=== PATIENT | female | born 1955 | race Caucasian/White ===

== ENCOUNTER 2017-11-06 08:03 | Outpatient (CLI) | payer MEDICAID ==
[~2017-11-06] VITALS: Ht 160 cm; Wt 64.9 kg
[~2017-11-06 08:03] MED LIST: AC325T PO; ASP325T PO; ASPI-892; BETH50TA9 PO; CIPR500T78 PO; CLOP75TA PO; CTRZ10T PO; DULO60CA6; GBPN300C; LEVO750T6 PO; LORA1TAB; NORT50CA PO; OXC5T; RT-COMBINH; VIT1TABL93 PO
[2017-11-06 08:13] VITALS: BP 136/81
[2017-11-06 08:49] LABS: BASOPHILS % (AUTO) 0 % (0-10); EOSINOPHILS # (AUTO) 0.1 10^3/uL (0.0-0.3); EOSINOPHILS % (AUTO) 1 % (0-10); HEMATOCRIT 43 % (35-52); HEMOGLOBIN 14.9 G/DL (11.5-16.0); LYMPHOCYTES # (AUTO) 1.9 X 10^3 (1.0-4.0); LYMPHOCYTES % (AUTO) 20 % (12-44); MEAN CORPUSCULAR HEMOGLOBIN 32 PG (25-34); MEAN CORPUSCULAR HGB CONC 35 G/DL (32-36); MEAN CORPUSCULAR VOLUME 93 FL (80-99); MEAN PLATELET VOLUME 9.8 FL (7.4-10.4); MONOCYTES # (AUTO) 0.7 X 10^3 (0.0-1.0); MONOCYTES % (AUTO) 7 % (0-12); NEUTROPHILS # (AUTO) 7.1 X 10^3 (1.8-7.8); NEUTROPHILS % (AUTO) 72 % (42-75); PLATELET COUNT 239 10^3/uL (130-400); RED BLOOD COUNT 4.67 10^6/uL (4.35-5.85); WHITE BLOOD COUNT 9.8 10^3/uL (4.3-11.0)
--- NOTE | 2017-11-06 09:09 | Diagnostic Imaging Report ---
INDICATION: Preop nasal surgery PA and lateral chest Heart size and pulmonary vascularity are normal. Lungs are clear. There are no effusions or pneumothoraces. There is CHEMICAL OPERATIONS AND TRAINING shunt running down the left side of the chest. IMPRESSION: No acute abnormalities in the chest Dictated by: Dictated on workstation # [id number]
[2017-11-06 09:11] LABS: BUN/CREATININE RATIO 15; CALCIUM 9.4 MG/DL (8.5-10.1); CARBON DIOXIDE 24 MMOL/L (21-32); CHLORIDE 111 MMOL/L (98-107); CREATININE SERUM 0.72 MG/DL (0.60-1.30); GFR ESTIMATED > 60; GLUCOSE 95 MG/DL (70-105); POTASSIUM 4.2 MMOL/L (3.6-5.0); SODIUM 143 MMOL/L (135-145)
[2017-11-06] MEDS ORDERED: CETI10TA17 PO (09:27)
[2017-11-06] MEDS ORDERED: LORA1TAB PO (09:27)
[2017-11-06] MEDS ORDERED: ACET-93 PO (09:27)
[2017-11-06] MEDS ORDERED: IPRA4AER IH (09:27)
[2017-11-06] MEDS ORDERED: POLY119P5 PO (09:31)
[2017-11-06] MEDS ORDERED: BUTA1CAP17 PO (09:31)
[2017-11-06] MEDS ORDERED: [UNRECOGNIZED DRUG - CODE] IJ (09:31)
[2017-11-06] MEDS ORDERED: DULO60CA6 PO (09:31)
[2017-11-15] MEDS ORDERED: AZIT250T PO (07:18)
[2017-11-15] MEDS ORDERED: ACHD5005 PO (10:32)
[2017-11-15] MEDS ORDERED: CEPH-507 PO (10:32)
[2017-11-15] MEDS ORDERED: MUPI22OI2 TP (10:33)
== END 2017-11-06 09:00 | disposition home or self-care (01) ==
LOC: PREOP 08:03
PROVIDERS: ATTEND Otolaryngology Otolaryngology/Facial Plastic Surgery
DX: Z01.810 Encounter for preprocedural cardiovascular examination (principal); Z01.811 Encounter for preprocedural respiratory examination; Z01.812 Encounter for preprocedural laboratory examination; Z11.2 Encounter for screening for other bacterial diseases; L98.9 Disorder of the skin and subcutaneous tissue, unspecified
CPT/HCPCS: 36415; 71046; 80048; 85025; 87081; 93005

== ENCOUNTER 2018-09-24 05:38 | Outpatient (CLI) | payer MEDICAID ==
[~2018-09-24] VITALS: Ht 160 cm; Wt 64.9 kg
[~2018-09-24 05:38] MED LIST changes: +ACET-93 PO; +ACHD5005 PO; +AZIT250T PO; +BUTA1CAP17 PO; +CEPH-507 PO; +CETI10TA17 PO; +DULO60CA6 PO; +IPRA4AER IH; +LORA1TAB PO; +MUPI22OI2 TP; +POLY119P5 PO; +[UNRECOGNIZED DRUG - CODE] IJ
[2018-09-24] MEDS ORDERED: RANI150T46 PO (13:17)
[2018-09-24] MEDS ORDERED: NABU500T PO (13:17)
== END 2018-09-24 13:23 | disposition home or self-care (01) ==
LOC: PREOP 05:38
PROVIDERS: ATTEND Specialist
DX: Z01.818 Encounter for other preprocedural examination (principal)

== ENCOUNTER 2018-09-26 06:56 | Day surgery (SDC) | payer MEDICAID ==
[~2018-09-26] VITALS: Ht 160 cm; Wt 64.9 kg
[~2018-09-26 06:56] MED LIST changes: +NABU500T PO; +RANI150T46 PO
[2018-09-26 07:00] VITALS: BP 123/79
[2018-09-26] MEDS ORDERED: MOXIFLOXACIN OPHTH SOLN 5 MG/ML 0.3 ML SYRINGE OP ONE (07:00)
[2018-09-26] MEDS ORDERED: TIMOLOL MALEATE 0.5% 5 ML (TIMOPTIC) BTL OU PRN (07:00)
[2018-09-26] MEDS ORDERED: LIDOCAINE PF 1% 2 ML AMP IR PRN (07:00)
[2018-09-26] MEDS ORDERED: POVIDONE (BETADINE) OPHTH SOLN 5% 30 ML OP ONE (07:00)
[2018-09-26] MEDS: TETRACAINE 0.5% OPHTH SOLN 4 ML BTL (SINGLE DOSE ONLY) OU PRN ×4 (07:16→07:35)
[2018-09-26] MEDS: CYCLOPENTOLATE 1% (CYCLOGYL) 2 ML DROPS OP SCH ×3 (07:25→07:35)
[2018-09-26] MEDS: PHENYLEPHRINE 10% OPHTH (NEO-SYN) 5 ML BTL OU SCH ×3 (07:25→07:35)
[2018-09-26] MEDS ORDERED: MIDAZOLAM 2 MG/2 ML (VERSED) VIAL ONE (07:50)
--- NOTE | 2018-09-26 08:06 | Ophthalmologist Pre-Op Note ---
Pre-Operative Progress Note H&P Reviewed The H&P was reviewed, patient examined and no changes noted. Date H&P Reviewed: Sep 26, 2018 Time H&P Reviewed: 08:06 Pre-Op Dx Cataract, Left Eye CE DIAZ MD Sep 26, 2018 08:06
--- NOTE | 2018-09-26 08:31 | Ophthalmology Operative Report ---
Cataract removal/placement IOL PREOPERATIVE DIAGNOSIS: Cataract Left Eye POSTOPERATIVE DIAGNOSIS: Cataract Left Eye PROCEDURE: Cataract removal and placement of posterior chamber implant, left eye SURGEON: Garcia Diaz ANESTHESIA: Topical with sedation COMPLICATIONS: None ESTIMATED BLOOD LOSS: Minimal DESCRIPTION OF PROCEDURE: After proper informed consent was obtained, the patient, a 63 female, was taken to the Operating Room and the left eye was anesthetized with tetracaine. The left eye was then prepped and draped in the usual manner. A wire lid speculum was placed. A paracentesis was made at the left hand position. Preservative free lidocaine was injected into the anterior chamber followed by viscoelastic. A clear corneal incision was made in the temporal position. A capsulorrhexis was preformed and the central nuclear and cortical material were removed. The posterior capsule was polished and an Fer 22.5 AU00T0 was placed into the capsular bag. The residual viscoelastic was aspirated and balanced saline solution was injected into the anterior chamber. Moxifloxacin was injected into the anterior chamber. The wound was checked and found to be water tight. The patient tolerated the procedure well without complications. GARCIA DIAZ MD Sep 26, 2018 08:31
[2018-09-26 08:39] VITALS: BP 154/78
--- NOTE | 2018-09-26 12:00 | Anesthesia-General Post-Op ---
MAC Patient Condition Mental Status/LOC: Same as Preop Cardiovascular: Satisfactory Nausea/Vomiting: Absent Respiratory: Satisfactory Pain: Controlled Complications: Absent Post Op Complications Complications None Follow Up Care/Instructions Patient Instructions None needed. Anesthesiology Discharge Order Discharge Order Patient is doing well, no complaints, stable vital signs, no apparent adverse anesthesia problems. No complications reported per nursing. AVIS CID CRNA Sep 26, 2018 12:00
== END 2018-09-26 08:39 | disposition home or self-care (01) ==
LOC: SDC 06:56
PROVIDERS: ATTEND Specialist
DX: H25.12 Age-related nuclear cataract, left eye (principal); J45.909 Unspecified asthma, uncomplicated; K21.9 Gastro-esophageal reflux disease without esophagitis; Z86.79 Personal history of other diseases of the circulatory system; Z87.891 Personal history of nicotine dependence; Z79.899 Other long term (current) drug therapy

== ENCOUNTER 2018-11-05 05:48 | Outpatient (CLI) | payer MEDICAID | END 2018-11-05 16:20 | disposition home or self-care (01) | LOC: PREOP 05:48 | PROVIDERS: ATTEND Specialist | DX: Z01.818 Encounter for other preprocedural examination (principal) ==

== ENCOUNTER 2018-11-07 07:26 | Day surgery (SDC) | payer MEDICAID ==
[~2018-11-07] VITALS: Ht 160 cm; Wt 64.9 kg
[2018-11-07] MEDS: TETRACAINE 0.5% OPHTH SOLN 4 ML BTL (SINGLE DOSE ONLY) OU PRN ×4 (07:39→07:59)
[2018-11-07] MEDS ORDERED: LIDOCAINE PF 1% 2 ML AMP IR PRN (07:45)
[2018-11-07] MEDS ORDERED: TIMOLOL MALEATE 0.5% 5 ML (TIMOPTIC) BTL OU PRN (07:45)
[2018-11-07] MEDS ORDERED: POVIDONE (BETADINE) OPHTH SOLN 5% 30 ML OP ONE (07:45)
[2018-11-07] MEDS ORDERED: MOXIFLOXACIN OPHTH SOLN 5 MG/ML 0.3 ML SYRINGE OP ONE (07:45)
--- NOTE | 2018-11-07 07:45 | Ophthalmologist Pre-Op Note ---
Pre-Operative Progress Note H&P Reviewed The H&P was reviewed, patient examined and no changes noted. Date H&P Reviewed: Nov 07, 2018 Time H&P Reviewed: 07:45 Pre-Op Dx Cataract, Right Eye CE DIAZ MD Nov 07, 2018 07:45
[2018-11-07 07:48] VITALS: BP 136/76
[2018-11-07] MEDS: PHENYLEPHRINE 10% OPHTH (NEO-SYN) 5 ML BTL OU SCH ×3 (07:48→07:59)
[2018-11-07] MEDS: CYCLOPENTOLATE 1% (CYCLOGYL) 2 ML DROPS OP SCH ×3 (07:48→07:59)
[2018-11-07] MEDS ORDERED: MIDAZOLAM 2 MG/2 ML (VERSED) VIAL ONE (08:28)
--- NOTE | 2018-11-07 08:51 | Ophthalmology Operative Report ---
Cataract removal/placement IOL PREOPERATIVE DIAGNOSIS: Cataract Right Eye POSTOPERATIVE DIAGNOSIS: Cataract Right Eye PROCEDURE: Cataract removal and placement of posterior chamber implant, right eye SURGEON: Garcia Diaz ANESTHESIA: Topical with sedation COMPLICATIONS: None ESTIMATED BLOOD LOSS: Minimal DESCRIPTION OF PROCEDURE: After proper informed consent was obtained, the patient, a 63 female, was taken to the Operating Room and the right eye was anesthetized with tetracaine. The right eye was then prepped and draped in the usual manner. A wire lid speculum was placed. A paracentesis was made at the left hand position. Preservative free lidocaine was injected into the anterior chamber followed by viscoelastic. A clear corneal incision was made in the temporal position. A capsulorrhexis was preformed and the central nuclear and cortical material were removed. The posterior capsule was polished and Fer 23.0 AU00T0 IOL was placed into the capsular bag. The residual viscoelastic was aspirated and balanced saline solution was injected into the anterior chamber. Moxifloxacin was injected into the anterior chamber. The wound was checked and found to be water tight. The patient tolerated the procedure well without complications. GARCIA DIAZ MD Nov 07, 2018 08:51
[2018-11-07 09:00] VITALS: BP 114/73
--- NOTE | 2018-11-07 09:56 | Anesthesia-General Post-Op ---
MAC Patient Condition Mental Status/LOC: Same as Preop Cardiovascular: Satisfactory Nausea/Vomiting: Absent Respiratory: Satisfactory Pain: Controlled Complications: Absent Post Op Complications Complications None Follow Up Care/Instructions Patient Instructions None needed. Anesthesiology Discharge Order Discharge Order Patient is doing well, no complaints, stable vital signs, no apparent adverse anesthesia problems. No complications reported per nursing. ABISAI ORTIZ CRNA Nov 07, 2018 09:56
--- OUTSIDE RECORDS SUMMARY | 2018-11-07 12:39 | XMS REPORT | Clinical Summary ---
Author Author [facility] Organization [facility] Address Unknown Phone Unavailable Care Team Providers Care Farmworker Name Role Phone Taye Castorena MD Unavailable Jennifer Acosta MD Unavailable Josefina Grove MD Unavailable Rossana Magana RN Unavailable Unavailable Saima Hudson RN Unavailable Unavailable May Mckee RN Unavailable Unavailable Mode Fernandez MD Unavailable Alondra Mitchell MD Unavailable Radha Newman RN Unavailable Unavailable Leslie Dorado APRN-MATCHBOOK MAKER Unavailable Heather Bauer Unavailable Unavailable Radha Torres RN Unavailable Unavailable Jeff Platt MD Unavailable Lisa Gibson RN Unavailable Unavailable Fidel Lugo RN Unavailable Unavailable Jerson Leslie PCP Source Comments Some departments are not documenting in the electronic medical record. If you d o not see the information that you expected, contact Release of Information in [facility] Information Management department at [phone] for further assistan ce in locating additional records.[facility] Allergies Comments Active Allergy Reactions Severity Noted Date Adhesive Tape (Rosins) RASH, ITCHING Medium 08/09/2011 Sulfamethoxazole-Trimetho DIARRHEA, Low 08/08/2014 prim NAUSEA AND VOMITING Latex RASH, Medium 05/17/2014 SHORTNESS OF BREATH Morphine SHORTNESS OF Medium 03/13/2010 BREATH, ITCHING Sulfa (Sulfonamide NAUSEA AND Low 10/23/2014 Antibiotics) VOMITING Medications End Date Status Medication Sig Dispensed Refills Start Date Active LORazepam (ATIVAN) 1 mg Take 1 mg by 0 tablet mouth twice daily as needed. Active cetirizine (ZYRTEC) 10 mg Take 10 mg by 0 tablet mouth daily. Active ipratropium/albuterol Inhale 2 0 (COMBIVENT) 103/18 Puffs by mcg/Actuation inhaler mouth as Needed. Active acetaminophen (TYLENOL) Take 500 mg 0 500 mg tablet by mouth every 6 hours as needed. Active triamcinolone acetonide Apply to 0 (KENALOG) 0.1 % topical affected area cream twice daily as needed. Active cholecalciferol(+) Take 2,000 0 (VITAMIN D-3) 2,000 unit Units by tablet mouth. Take 1 tablet weekly Active oxyCODONE-acetaminophen Take 1 Tab by 0 (PERCOCET; ENDOCET; mouth every 4 ROXICET) 5-325 mg tablet hours as needed for Pain Active polyethylene glycol 3350 Take 17 g by 0 (GLYCOLAX; MIRALAX) 17 mouth as gram/dose powder Needed. 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 Status post cerebral aneurysm repair 07/29/2013 S/P cerebral aneurysm repair 05/20/2012 Aneurysm, cerebral, nonruptured 04/06/2010 Asthma 04/06/2010 Anxiety 04/06/2010 Immunizations Name Dates Previously Given Next Due Pneumococcal Vaccine 07/23/2014 (23-Funmi Adult) Family History Medical History Relation Name Comments Other Father brain tumor Cancer Mother Relation Name Status Comments Father Mother Social History Date Tobacco Use Types Packs/Day Years Used Quit: 06/13/2013 Former Smoker Cigarettes 0.5 35 Smokeless Tobacco: Never Used Alcohol Use Drinks/Week oz/Week Comments No Sex Assigned at Date Recorded Not on file Industry Job Start Date Occupation Not on file Not on file Not on file Travel End Travel History Travel Start No recent travel history available. Last Filed Vital Signs Time Taken Vital Sign Reading 07/08/2015 12:34 PM [employer] ATT[employer] Blood Pressure 157/85 07/08/2015 12:34 PM [employer] ATTEND[employer] Pulse 67 12/03/2014 9:50 AM CDT Temperature 36.8 C (98.3 F) 09/01/2014 3:17 PM CDT Respiratory Rate 20 12/03/2014 9:50 AM CDT Oxygen Saturation 99% - Inhaled Oxygen - Concentration 07/08/2015 12:34 PM [employer] ATTENDANT Weight 61.2 kg (135 lb) 07/08/2015 12:34 PM [employer]UM ATTENDANT Height 158.8 cm (5' 2.5") 07/08/2015 12:34 PM [employer]UM ATTENDANT Body Mass Index 24.3 Plan of Treatment Health Maintenance Due Date Last Done Comments HEPATITIS C SCREENING 1956 PHYSICAL (COMPREHENSIVE) 1963 EXAM HIV SCREENING 1971 DTAP/TDAP VACCINES (1 - 1974 Tdap) CERVICAL CANCER SCREENING 1986 BREAST CANCER SCREENING 1996 COLORECTAL CANCER 2006 SCREENING SHINGLES RECOMBINANT 2006 VACCINE (1 of 2) INFLUENZA VACCINE 03/03/2019 Results Not on filefrom Last 3 Months Insurance Type Payer Benefit Subscriber ID Effective Phone Address Plan / Dates Group Medicaid [employer] [employer] xxxxxxxxxxx 2012-P [facility] Advance Directives Patient has advance care planning documents, and code status on file. For more i nformation, please contact: [facility] [address] [place] [address] Date Inactivated Comments Code Status Date Activated 12/03/2014 2:21 PM Full Code 12/02/2014 9:32 PM Provider has discussed Code Status No, discussion not w/Patient or Family? necessary based on Dx 11/02/2014 12:49 PM Full Code 10/28/2014 2:57 PM Provider has discussed Code Status No, more discussion w/Patient or Family? needed 10/28/2014 2:57 PM Full Code 10/21/2014 11:18 PM Provider has discussed Code Status No, more discussion w/Patient or Family? needed 08/10/2014 3:05 PM Full Code 08/07/2014 7:06 PM Provider has discussed Code Status No, discussion not w/Patient or Family? necessary based on Dx 07/23/2014 4:29 PM Full Code 07/22/2014 3:51 PM Provider has discussed Code Status No, discussion not w/Patient or Family? necessary based on Dx
--- OUTSIDE RECORDS SUMMARY | 2018-11-07 12:39 | XMS REPORT ---
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 [address] 20 Feb, 2011 [facility] [place] [facility] [address] [id number] [place] [address] 19 Feb, 2011 [facility] [place] [facility] [address] [id number] [place] [address] 10 Feb, 2011 [facility] [place] [facility] [address] [id number] [place] [address] 08 Feb, 2011 [facility] [place] [facility] [address] [id number] [place] [address] 06 Feb, 2011 [facility] [place] [facility] [address] [id number] [place] [address] 06 Feb, 2011 [facility] [place] [facility] [address] [id number] [place] [address] 21 Jan, 2012 [facility] [place] [facility] [address] [id number] [place] [address] 15 Jan, 2012 [facility] [place] [facility] [address] [id number] [place] [address] 10 Jan, 2012 [facility] [place] [facility] [address] [id number] [place] [address] 09 Jan, 2012 [facility] [place] [facility] [address] [id number] [place] [address] 17 Dec, 2011 [facility] [place] [facility] [address] [id number] [place] [address] 12 Dec, 2011 [facility] [place] [facility] [address] [id number] [place] [address] 18 Nov, 2011 [facility] [place] [facility] [address] [id number] [place] [address] 14 Nov, 2011 [facility] [place] [facility] [address] [id number] [place] [address] 12 Nov, 2011 [facility] [place] [facility] [address] [id number] [place] [address] 30 Oct, 2011 [facility] [place] [facility] [address] [id number] [place] [address] October, [facility] [place] [facility] [address] [id number] [place] [address] October, [facility] [place] [facility] [address] [id number] [place] [address] Sep, [facility] [place] [facility] [address] [id number] [place] [address] Sep, [facility] [place] [facility] [address] [id number] [place] [address] Sep, [facility] [place] [facility] [address] [id number] [place] [address] 30 Aug, 2011 [facility] [place] [facility] [address] [id number] [place] [address] Aug, [facility] [place] [facility] [address] [id number] [place] [address] Aug, [facility] [place] [facility] [address] [id number] [place] [address] Aug, [facility] [place] [facility] [address] [id number] [place] [address] Aug, [facility] [place] [facility] [address] [id number] [place] [address] Aug, [facility] [place] [facility] [address] [id number] [place] [address] Aug, [facility] [place] [facility] [address] [id number] [place] [address] Aug, [facility] [place] [facility] [address] [id number] [place] [address] Aug, [facility] [place] [facility] [address] [id number] [place] [address] Aug, [facility] [place] [facility] [address] [id number] [place] [address] Jul, [facility] [place] [facility] [address] [id number] [place] [address] Jul, [facility] [place] [facility] [address] [id number] [place] [address] Jul, [facility] [place] [facility] [address] [id number] [place] [address] Jul, [facility] [place] [facility] [address] [id number] [place] [address] Jul, [facility] [place] [facility] [address] [id number] [place] [address] Jun, [facility] [place] [facility] [address] [facility] [id number] [place] [address] Jun, [facility] [place] [facility] [address] [facility] [id number] [place] [address] Jun, [facility] [place] [facility] [address] [id number] [place] [address] May, [facility] [place] [facility] [address] [facility] [id number] [place] [address] Apr, [facility] [place] [facility] [address] [facility] [id number] [place] [address] Apr, [facility] [place] [facility] [address] [facility] [id number] [place] [address] Apr, [facility] [place] [facility] [address] [id number] [place] [address] Apr, [facility] [place] [facility] [address] [facility] [id number] [place] [address] Apr, [facility] [place] [facility] [address] [facility] [id number] [place] [address] Mar, [facility] [place] [facility] [address] [facility] [id number] [place] [address] 14 Mar, 2011 [facility] [place] [facility] [address] [id number] [place] [address] 11 Mar, 2011 [facility] [place] [facility] [address] [id number] [place] [address] 11 Mar, 2011 [facility] [place] [facility] [address] [id number] [place] [address] 11 Mar, 2011 [facility] [place] [facility] [address] [id number] [place] [address] 11 Mar, 2011 [facility] [place] [facility] [address] [id number] [place] [address] 14 May, 2010 [facility] [place] [facility] [address] [id number] [place] [address] 30 Apr, 2010 [facility] [place] [facility] [address] [id number] [place] [address] 17 Apr, 2010 [facility] [place] [facility] [address] [id number] [place] [address] 17 Apr, 2010 [facility] [place] [facility] [address] [id number] [place] [address] 15 Apr, 2010 [facility] [place] [facility] [address] [id number] [place] [address] 08 Apr, 2010 [facility] [place] [facility] [address] [id number], [place] [address] 20 Mar, 2010 [facility] [place] [facility] [address] [id number], [place] [address] 13 Mar, 2010 [facility] [place] [facility] [address] [id number] [place] [address] 29 May, 2009 [facility] [place] [facility] [address] [id number] [place] [address] 28 May, 2009 [facility] [place] [facility] [address] [id number] [place] [address] 21 May, 2009 [facility] [place] [facility] [id number], [place] [address] 14 May, 2009 [facility] [id number], [place] [address] May, [facility] [id number], [place] [address] May, [facility] [id number], [place] [address] May, [facility] [id number], [place] [address] Apr, [facility] [id number] [place] [address] Apr, [facility] [id number], [place] [address] Apr, [facility] [id number], [place] [address] Apr, [facility] [id number], [place] [address] Mar, [facility] [id number], [place] [address] Mar, [facility] [id number], [place] [address] Mar, [facility] [id number] [address] Jul, IMMUNIZATIONS No Known Immunizations SOCIAL HISTORY Never Assessed REASON FOR VISIT [facility] PLAN OF CARE VITAL SIGNS MEDICATIONS Unknown Medications RESULTS No Results PROCEDURES No Known procedures INSTRUCTIONS MEDICATIONS ADMINISTERED No Known Medications MEDICAL (GENERAL) HISTORY Type Description Date Medical History asthma Medical History back pain Medical History headache Medical History depression Medical History aneurysm Surgical History tonsillectomy Surgical History orthopaedic surgery; rt knee/leg Surgical History 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
--- OUTSIDE RECORDS SUMMARY | 2018-11-07 12:40 | XMS REPORT ---
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 [id number] [place] [address] 19 Feb, 2011 [facility] [place] [facility] [address] [id number] [place] [address] 10 Feb, 2011 [facility] [place] [facility] [address] [id number] [place] [address] 08 Feb, 2011 [facility] [place] [facility] [address] [id number] [place] [address] 06 Feb, 2011 [facility] [place] [facility] [address] [id number] [place] [address] 06 Feb, 2011 [facility] [place] [facility] [address] [id number] [place] [address] 21 Jan, 2012 [facility] [place] [facility] [address] [id number] [place] [address] 15 Jan, 2012 [facility] [place] [facility] [address] [id number] [place] [address] 10 Jan, 2012 [facility] [place] [facility] [address] [id number] [place] [address] 09 Jan, 2012 [facility] [place] [facility] [address] [id number] [place] [address] 17 Dec, 2011 [facility] [place] [facility] [address] [id number] [place] [address] 12 Dec, 2011 [facility] [place] [facility] [address] [id number] [place] [address] 18 Nov, 2011 [facility] [place] [facility] [address] [id number] [place] [address] 14 Nov, 2011 [facility] [place] [facility] [address] [id number] [place] [address] 12 Nov, 2011 [facility] [place] [facility] [address] [id number] [place] [address] 30 Oct, 2011 [facility] [place] [facility] [address] [id number] [place] [address] October, [facility] [place] [facility] [address] [id number] [place] [address] October, [facility] [place] [facility] [address] [id number] [place] [address] Sep, [facility] [place] [facility] [address] [id number] [place] [address] Sep, [facility] [place] [facility] [address] [id number] [place] [address] Sep, [facility] [place] [facility] [address] [id number] [place] [address] 30 Aug, 2011 [facility] [place] [facility] [address] [id number] [place] [address] Aug, [facility] [place] [facility] [address] [id number] [place] [address] Aug, [facility] [place] [facility] [address] [id number] [place] [address] Aug, [facility] [place] [facility] [address] [id number] [place] [address] Aug, [facility] [place] [facility] [address] [id number] [place] [address] Aug, [facility] [place] [facility] [address] [id number] [place] [address] Aug, [facility] [place] [facility] [address] [id number] [place] [address] Aug, [facility] [place] [facility] [address] [id number] [place] [address] Aug, [facility] [place] [facility] [address] [id number] [place] [address] Aug, [facility] [place] [facility] [address] [id number] [place] [address] Jul, [facility] [place] [facility] [address] [id number] [place] [address] Jul, [facility] [place] [facility] [address] [id number] [place] [address] Jul, [facility] [place] [facility] [address] [id number] [place] [address] Jul, [facility] [place] [facility] [address] [id number] [place] [address] Jul, [facility] [place] [facility] [address] [id number] [place] [address] Jun, [facility] [place] [facility] [address] [facility] [id number] [place] [address] Jun, [facility] [place] [facility] [address] [facility] [id number] [place] [address] Jun, [facility] [place] [facility] [address] [id number] [place] [address] May, [facility] [place] [facility] [address] [facility] [id number] [place] [address] Apr, [facility] [place] [facility] [address] [facility] [id number] [place] [address] Apr, [facility] [place] [facility] [address] [facility] [id number] [place] [address] Apr, [facility] [place] [facility] [address] [id number] [place] [address] Apr, [facility] [place] [facility] [address] [facility] [id number] [place] [address] Apr, [facility] [place] [facility] [address] [facility] [id number] [place] [address] Mar, [facility] [place] [facility] [address] [facility] [id number] [place] [address] 14 Mar, 2011 [facility] [place] [facility] [address] [id number] [place] [address] 11 Mar, 2011 [facility] [place] [facility] [address] [id number] [place] [address] 11 Mar, 2011 [facility] [place] [facility] [address] [id number] [place] [address] 11 Mar, 2011 [facility] [place] [facility] [address] [id number] [place] [address] 11 Mar, 2011 [facility] [place] [facility] [address] [id number] [place] [address] 14 May, 2010 [facility] [place] [facility] [address] [id number] [place] [address] 30 Apr, 2010 [facility] [place] [facility] [address] [id number] [place] [address] 17 Apr, 2010 [facility] [place] [facility] [address] [id number] [place] [address] 17 Apr, 2010 [facility] [place] [facility] [address] [id number] [place] [address] 15 Apr, 2010 [facility] [place] [facility] [address] [id number] [place] [address] 08 Apr, 2010 [facility] [place] [facility] [address] [id number], [place] [address] 20 Mar, 2010 [facility] [place] [facility] [address] [id number], [place] [address] 13 Mar, 2010 [facility] [place] [facility] [address] [id number] [place] [address] 29 May, 2009 [facility] [place] [facility] [address] [id number] [place] [address] 28 May, 2009 [facility] [place] [facility] [address] [id number] [place] [address] 21 May, 2009 [facility] [place] [facility] [id number], [place] [address] 14 May, 2009 [facility] [id number], [place] [address] May, [facility] [id number], [place] [address] May, [facility] [id number], [place] [address] May, [facility] [id number], [place] [address] Apr, [facility] [id number] [place] [address] Apr, [facility] [id number], [place] [address] Apr, [facility] [id number], [place] [address] Apr, [facility] [id number], [place] [address] Mar, [facility] [id number], [place] [address] Mar, [facility] [id number], [place] [address] Mar, [facility] [address] [id number] [address] Jul, IMMUNIZATIONS No Known Immunizations SOCIAL HISTORY Never Assessed REASON FOR VISIT [facility] [place] CARE VITAL SIGNS MEDICATIONS Unknown [...]
--- OUTSIDE RECORDS SUMMARY | 2018-11-07 12:41 | XMS REPORT ---
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 [id number] [place] [address] 10 Feb, 2011 [facility] [place] [facility] [address] [id number] [place] [address] 08 Feb, 2011 [facility] [place] [facility] [address] [id number] [place] [address] 06 Feb, 2011 [facility] [place] [facility] [address] [id number] [place] [address] 06 Feb, 2011 [facility] [place] [facility] [address] [id number] [place] [address] 21 Jan, 2012 [facility] [place] [facility] [address] [id number] [place] [address] 15 Jan, 2012 [facility] [place] [facility] [address] [id number] [place] [address] 10 Jan, 2012 [facility] [place] [facility] [address] [id number] [place] [address] 09 Jan, 2012 [facility] [place] [facility] [address] [id number] [place] [address] 17 Dec, 2011 [facility] [place] [facility] [address] [id number] [place] [address] 12 Dec, 2011 [facility] [place] [facility] [address] [id number] [place] [address] 18 Nov, 2011 [facility] [place] [facility] [address] [id number] [place] [address] 14 Nov, 2011 [facility] [place] [facility] [address] [id number] [place] [address] 12 Nov, 2011 [facility] [place] [facility] [address] [id number] [place] [address] 30 Oct, 2011 [facility] [place] [facility] [address] [id number] [place] [address] October, [facility] [place] [facility] [address] [id number] [place] [address] October, [facility] [place] [facility] [address] [id number] [place] [address] Sep, [facility] [place] [facility] [address] [id number] [place] [address] Sep, [facility] [place] [facility] [address] [id number] [place] [address] Sep, [facility] [place] [facility] [address] [id number] [place] [address] 30 Aug, 2011 [facility] [place] [facility] [address] [id number] [place] [address] Aug, [facility] [place] [facility] [address] [id number] [place] [address] Aug, [facility] [place] [facility] [address] [id number] [place] [address] Aug, [facility] [place] [facility] [address] [id number] [place] [address] Aug, [facility] [place] [facility] [address] [id number] [place] [address] Aug, [facility] [place] [facility] [address] [id number] [place] [address] Aug, [facility] [place] [facility] [address] [id number] [place] [address] Aug, [facility] [place] [facility] [address] [id number] [place] [address] Aug, [facility] [place] [facility] [address] [id number] [place] [address] Aug, [facility] [place] [facility] [address] [id number] [place] [address] Jul, [facility] [place] [facility] [address] [id number] [place] [address] Jul, [facility] [place] [facility] [address] [id number] [place] [address] Jul, [facility] [place] [facility] [address] [id number] [place] [address] Jul, [facility] [place] [facility] [address] [id number] [place] [address] Jul, [facility] [place] [facility] [address] [id number] [place] [address] Jun, [facility] [place] [facility] [address] [facility] [id number] [place] [address] Jun, [facility] [place] [facility] [address] [facility] [id number] [place] [address] Jun, [facility] [place] [facility] [address] [id number] [place] [address] May, [facility] [place] [facility] [address] [facility] [id number] [place] [address] Apr, [facility] [place] [facility] [address] [facility] [id number] [place] [address] Apr, [facility] [place] [facility] [address] [facility] [id number] [place] [address] Apr, [facility] [place] [facility] [address] [id number] [place] [address] Apr, [facility] [place] [facility] [address] [facility] [id number] [place] [address] Apr, [facility] [place] [facility] [address] [facility] [id number] [place] [address] Mar, [facility] [place] [facility] [address] [facility] [id number] [place] [address] 14 Mar, 2011 [facility] [place] [facility] [address] [id number] [place] [address] 11 Mar, 2011 [facility] [place] [facility] [address] [id number] [place] [address] 11 Mar, 2011 [facility] [place] [facility] [address] [id number] [place] [address] 11 Mar, 2011 [facility] [place] [facility] [address] [id number] [place] [address] 11 Mar, 2011 [facility] [place] [facility] [address] [id number] [place] [address] 14 May, 2010 [facility] [place] [facility] [address] [id number] [place] [address] 30 Apr, 2010 [facility] [place] [facility] [address] [id number] [place] [address] 17 Apr, 2010 [facility] [place] [facility] [address] [id number] [place] [address] 17 Apr, 2010 [facility] [place] [facility] [address] [id number] [place] [address] 15 Apr, 2010 [facility] [place] [facility] [address] [id number] [place] [address] 08 Apr, 2010 [facility] [place] [facility] [address] [id number] [address] 20 Mar, 2010 [facility] [place] [facility] [address] [id number] [address] 13 Mar, 2010 [facility] [place] [facility] [address] [id number] [place] [address] 29 May, 2009 [facility] [place] [facility] [address] [id number] [place] [address] 28 May, 2009 [facility] [place] [facility] [address] [id number] [place] [address] 21 May, 2009 [facility] [place] [facility] [id number] [address] 14 May, 2009 [facility] [id number] [address] May, [facility] [id number] [address] May, [facility] [id number] [address] May, [facility] [id number] [address] Apr, [facility] [id number] [place] [address] Apr, [facility] [id number] [address] Apr, [facility] [id number] [address] Apr, [facility] [id number] [address] Mar, [facility] [id number] [address] Mar, [facility] [id number] [address] Mar, [facility] [id number] [address] Jul, IMMUNIZATIONS No Known Immunizations SOCIAL HISTORY Never Assessed REASON FOR VISIT [facility] PLAN OF CARE VITAL SIGNS MEDICATIONS Unknown [...]
--- OUTSIDE RECORDS SUMMARY | 2018-11-07 12:41 | XMS REPORT ---
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 [facility] [place] [facility] [address] [id number] [place] [address] 10 Feb, 2011 [facility] [place] [facility] [address] [id number] [place] [address] 08 Feb, 2011 [facility] [place] [facility] [address] [id number] [place] [address] 06 Feb, 2011 [facility] [place] [facility] [address] [id number] [place] [address] 06 Feb, 2011 [facility] [place] [facility] [address] [id number] [place] [address] 21 Jan, 2012 [facility] [place] [facility] [address] [id number] [place] [address] 15 Jan, 2012 [facility] [place] [facility] [address] [id number] [place] [address] 10 Jan, 2012 [facility] [place] [facility] [address] [id number] [place] [address] 09 Jan, 2012 [facility] [place] [facility] [address] [id number] [place] [address] 17 Dec, 2011 [facility] [place] [facility] [address] [id number] [place] [address] 12 Dec, 2011 [facility] [place] [facility] [address] [id number] [place] [address] 18 Nov, 2011 [facility] [place] [facility] [address] [id number] [place] [address] 14 Nov, 2011 [facility] [place] [facility] [address] [id number] [place] [address] 12 Nov, 2011 [facility] [place] [facility] [address] [id number] [place] [address] 30 Oct, 2011 [facility] [place] [facility] [address] [id number] [place] [address] October, [facility] [place] [facility] [address] [id number] [place] [address] October, [facility] [place] [facility] [address] [id number] [place] [address] Sep, [facility] [place] [facility] [address] [id number] [place] [address] Sep, [facility] [place] [facility] [address] [id number] [place] [address] Sep, [facility] [place] [facility] [address] [id number] [place] [address] 30 Aug, 2011 [facility] [place] [facility] [address] [id number] [place] [address] Aug, [facility] [place] [facility] [address] [id number] [place] [address] Aug, [facility] [place] [facility] [address] [id number] [place] [address] Aug, [facility] [place] [facility] [address] [id number] [place] [address] Aug, [facility] [place] [facility] [address] [id number] [place] [address] Aug, [facility] [place] [facility] [address] [id number] [place] [address] Aug, [facility] [place] [facility] [address] [id number] [place] [address] Aug, [facility] [place] [facility] [address] [id number] [place] [address] Aug, [facility] [place] [facility] [address] [id number] [place] [address] Aug, [facility] [place] [facility] [address] [id number] [place] [address] Jul, [facility] [place] [facility] [address] [id number] [place] [address] Jul, [facility] [place] [facility] [address] [id number] [place] [address] Jul, [facility] [place] [facility] [address] [id number] [place] [address] Jul, [facility] [place] [facility] [address] [id number] [place] [address] Jul, [facility] [place] [facility] [address] [id number] [place] [address] Jun, [facility] [place] [facility] [address] [facility] [id number] [place] [address] Jun, [facility] [place] [facility] [address] [facility] [id number] [place] [address] Jun, [facility] [place] [facility] [address] [id number] [place] [address] May, [facility] [place] [facility] [address] [facility] [id number] [place] [address] Apr, [facility] [place] [facility] [address] [facility] [id number] [place] [address] Apr, [facility] [place] [facility] [address] [facility] [id number] [place] [address] Apr, [facility] [place] [facility] [address] [id number] [place] [address] Apr, [facility] [place] [facility] [address] [facility] [id number] [place] [address] Apr, [facility] [place] [facility] [address] [facility] [id number] [place] [address] Mar, [facility] [place] [facility] [address] [facility] [id number] [place] [address] 14 Mar, 2011 [facility] [place] [facility] [address] [id number] [place] [address] 11 Mar, 2011 [facility] [place] [facility] [address] [id number] [place] [address] 11 Mar, 2011 [facility] [place] [facility] [address] [id number] [place] [address] 11 Mar, 2011 [facility] [place] [facility] [address] [id number] [place] [address] 11 Mar, 2011 [facility] [place] [facility] [address] [id number] [place] [address] 14 May, 2010 [facility] [place] [facility] [address] [id number] [place] [address] 30 Apr, 2010 [facility] [place] [facility] [address] [id number] [place] [address] 17 Apr, 2010 [facility] [place] [facility] [address] [id number] [place] [address] 17 Apr, 2010 [facility] [place] [facility] [address] [id number] [place] [address] 15 Apr, 2010 [facility] [place] [facility] [address] [id number] [place] [address] 08 Apr, 2010 [facility] [place] [facility] [address] [id number] [address] 20 Mar, 2010 [facility] [place] [facility] [address] [id number] [address] 13 Mar, 2010 [facility] [place] [facility] [address] [id number] [place] [address] 29 May, 2009 [facility] [place] [facility] [address] [id number] [place] [address] 28 May, 2009 [facility] [place] [facility] [address] [id number] [place] [address] 21 May, 2009 [facility] [place] [facility] [id number] [address] 14 May, 2009 [facility] [id number] [address] May, [facility] [id number] [address] May, [facility] [id number] [address] May, [facility] [id number] [address] Apr, [facility] [id number] [place] [address] Apr, [facility] [id number] [address] Apr, [facility] [id number] [address] Apr, [facility] [id number] [address] Mar, [facility] [id number] [address] Mar, [facility] [id number] [address] Mar, [facility] [address] [id number] [address] Jul, IMMUNIZATIONS No Known Immunizations SOCIAL HISTORY Never Assessed REASON FOR VISIT [facility] [place] PLAN OF CARE VITAL SIGNS MEDICATIONS [...]
--- OUTSIDE RECORDS SUMMARY | 2018-11-07 12:42 | XMS REPORT ---
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 [place] [facility] [address] [id number] [place] [address] 10 Feb, 2011 [facility] [place] [facility] [address] [id number] [place] [address] 08 Feb, 2011 [facility] [place] [facility] [address] [id number] [place] [address] 06 Feb, 2011 [facility] [place] [facility] [address] [id number] [place] [address] 06 Feb, 2011 [facility] [place] [facility] [address] [id number] [place] [address] 21 Jan, 2012 [facility] [place] [facility] [address] [id number] [place] [address] 15 Jan, 2012 [facility] [place] [facility] [address] [id number] [place] [address] 10 Jan, 2012 [facility] [place] [facility] [address] [id number] [place] [address] 09 Jan, 2012 [facility] [place] [facility] [address] [id number] [place] [address] 17 Dec, 2011 [facility] [place] [facility] [address] [id number] [place] [address] 12 Dec, 2011 [facility] [place] [facility] [address] [id number] [place] [address] 18 Nov, 2011 [facility] [place] [facility] [address] [id number] [place] [address] 14 Nov, 2011 [facility] [place] [facility] [address] [id number] [place] [address] 12 Nov, 2011 [facility] [place] [facility] [address] [id number] [place] [address] 30 Oct, 2011 [facility] [place] [facility] [address] [id number] [place] [address] October, [facility] [place] [facility] [address] [id number] [place] [address] October, [facility] [place] [facility] [address] [id number] [place] [address] Sep, [facility] [place] [facility] [address] [id number] [place] [address] Sep, [facility] [place] [facility] [address] [id number] [place] [address] Sep, [facility] [place] [facility] [address] [id number] [place] [address] 30 Aug, 2011 [facility] [place] [facility] [address] [id number] [place] [address] Aug, [facility] [place] [facility] [address] [id number] [place] [address] Aug, [facility] [place] [facility] [address] [id number] [place] [address] Aug, [facility] [place] [facility] [address] [id number] [place] [address] Aug, [facility] [place] [facility] [address] [id number] [place] [address] Aug, [facility] [place] [facility] [address] [id number] [place] [address] Aug, [facility] [place] [facility] [address] [id number] [place] [address] Aug, [facility] [place] [facility] [address] [id number] [place] [address] Aug, [facility] [place] [facility] [address] [id number] [place] [address] Aug, [facility] [place] [facility] [address] [id number] [place] [address] Jul, [facility] [place] [facility] [address] [id number] [place] [address] Jul, [facility] [place] [facility] [address] [id number] [place] [address] Jul, [facility] [place] [facility] [address] [id number] [place] [address] Jul, [facility] [place] [facility] [address] [id number] [place] [address] Jul, [facility] [place] [facility] [address] [id number] [place] [address] Jun, [facility] [place] [facility] [address] [facility] [id number] [place] [address] Jun, [facility] [place] [facility] [address] [facility] [id number] [place] [address] Jun, [facility] [place] [facility] [address] [id number] [place] [address] May, [facility] [place] [facility] [address] [facility] [id number] [place] [address] Apr, [facility] [place] [facility] [address] [facility] [id number] [place] [address] Apr, [facility] [place] [facility] [address] [facility] [id number] [place] [address] Apr, [facility] [place] [facility] [address] [id number] [place] [address] Apr, [facility] [place] [facility] [address] [facility] [id number] [place] [address] Apr, [facility] [place] [facility] [address] [facility] [id number] [place] [address] Mar, [facility] [place] [facility] [address] [facility] [id number] [place] [address] 14 Mar, 2011 [facility] [place] [facility] [address] [id number] [place] [address] 11 Mar, 2011 [facility] [place] [facility] [address] [id number] [place] [address] 11 Mar, 2011 [facility] [place] [facility] [address] [id number] [place] [address] 11 Mar, 2011 [facility] [place] [facility] [address] [id number] [place] [address] 11 Mar, 2011 [facility] [place] [facility] [address] [id number] [place] [address] 14 May, 2010 [facility] [place] [facility] [address] [id number] [place] [address] 30 Apr, 2010 [facility] [place] [facility] [address] [id number] [place] [address] 17 Apr, 2010 [facility] [place] [facility] [address] [id number] [place] [address] 17 Apr, 2010 [facility] [place] [facility] [address] [id number] [place] [address] 15 Apr, 2010 [facility] [place] [facility] [address] [id number] [place] [address] 08 Apr, 2010 [facility] [place] [facility] [address] [id number] [place] [address] 20 Mar, 2010 [facility] [place] [facility] [address] [id number] [place] [address] 13 Mar, 2010 [facility] [place] [facility] [address] [id number] [place] [address] 29 May, 2009 [facility] [place] [facility] [address] [id number] [place] [address] 28 May, 2009 [facility] [place] [facility] [address] [id number] [place] [address] 21 May, 2009 [facility] [place] [facility] [id number] [address] 14 May, 2009 [facility] [id number] [address] May, [facility] [id number] [address] May, [facility] [id number] [address] May, [facility] [id number] [address] Apr, [facility] [id number] [place] [address] Apr, [facility] [id number] [address] Apr, [facility] [id number] [address] Apr, [facility] [id number] [address] Mar, [facility] [id number] [address] Mar, [facility] [id number] [address] Mar, [facility] [id number] [address] Jul, IMMUNIZATIONS No Known Immunizations SOCIAL HISTORY Never Assessed REASON FOR VISIT [facility] [place] PLAN OF CARE VITAL [...]
--- OUTSIDE RECORDS SUMMARY | 2018-11-07 12:42 | XMS REPORT ---
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 [id number] [place] [address] 20 Feb, 2011 [facility] [place] [facility] [address] [id number] [place] [address] 19 Feb, 2011 [facility] [place] [facility] [address] [id number] [place] [address] 10 Feb, 2011 [facility] [place] [facility] [address] [id number] [place] [address] 08 Feb, 2011 [facility] [place] [facility] [address] [id number] [place] [address] 06 Feb, 2011 [facility] [place] [facility] [address] [id number] [place] [address] 06 Feb, 2011 [facility] [place] [facility] [address] [id number] [place] [address] 21 Jan, 2012 [facility] [place] [facility] [address] [id number] [place] [address] 15 Jan, 2012 [facility] [place] [facility] [address] [id number] [place] [address] 10 Jan, 2012 [facility] [place] [facility] [address] [id number] [place] [address] 09 Jan, 2012 [facility] [place] [facility] [address] [id number] [place] [address] 17 Dec, 2011 [facility] [place] [facility] [address] [id number] [place] [address] 12 Dec, 2011 [facility] [place] [facility] [address] [id number] [place] [address] 18 Nov, 2011 [facility] [place] [facility] [address] [id number] [place] [address] 14 Nov, 2011 [facility] [place] [facility] [address] [id number] [place] [address] 12 Nov, 2011 [facility] [place] [facility] [address] [id number] [place] [address] 30 Oct, 2011 [facility] [place] [facility] [address] [id number] [place] [address] October, [facility] [place] [facility] [address] [id number] [place] [address] October, [facility] [place] [facility] [address] [id number] [place] [address] Sep, [facility] [place] [facility] [address] [id number] [place] [address] Sep, [facility] [place] [facility] [address] [id number] [place] [address] Sep, [facility] [place] [facility] [address] [id number] [place] [address] 30 Aug, 2011 [facility] [place] [facility] [address] [id number] [place] [address] Aug, [facility] [place] [facility] [address] [id number] [place] [address] Aug, [facility] [place] [facility] [address] [id number] [place] [address] Aug, [facility] [place] [facility] [address] [id number] [place] [address] Aug, [facility] [place] [facility] [address] [id number] [place] [address] Aug, [facility] [place] [facility] [address] [id number] [place] [address] Aug, [facility] [place] [facility] [address] [id number] [place] [address] Aug, [facility] [place] [facility] [address] [id number] [place] [address] Aug, [facility] [place] [facility] [address] [id number] [place] [address] Aug, [facility] [place] [facility] [address] [id number] [place] [address] Jul, [facility] [place] [facility] [address] [id number] [place] [address] Jul, [facility] [place] [facility] [address] [id number] [place] [address] Jul, [facility] [place] [facility] [address] [id number] [place] [address] Jul, [facility] [place] [facility] [address] [id number] [place] [address] Jul, [facility] [place] [facility] [address] [id number] [place] [address] Jun, [facility] [place] [facility] [address] [facility] [id number] [place] [address] Jun, [facility] [place] [facility] [address] [facility] [id number] [place] [address] Jun, [facility] [place] [facility] [address] [id number] [place] [address] May, [facility] [place] [facility] [address] [facility] [id number] [place] [address] Apr, [facility] [place] [facility] [address] [facility] [id number] [place] [address] Apr, [facility] [place] [facility] [address] [facility] [id number] [place] [address] Apr, [facility] [place] [facility] [address] [id number] [place] [address] Apr, [facility] [place] [facility] [address] [facility] [id number] [place] [address] Apr, [facility] [place] [facility] [address] [facility] [id number] [place] [address] Mar, [facility] [place] [facility] [address] [facility] [id number] [place] [address] 14 Mar, 2011 [facility] [place] [facility] [address] [id number] [place] [address] 11 Mar, 2011 [facility] [place] [facility] [address] [id number] [place] [address] 11 Mar, 2011 [facility] [place] [facility] [address] [id number] [place] [address] 11 Mar, 2011 [facility] [place] [facility] [address] [id number] [place] [address] 11 Mar, 2011 [facility] [place] [facility] [address] [id number] [place] [address] 14 May, 2010 [facility] [place] [facility] [address] [id number] [place] [address] 30 Apr, 2010 [facility] [place] [facility] [address] [id number] [place] [address] 17 Apr, 2010 [facility] [place] [facility] [address] [id number] [place] [address] 17 Apr, 2010 [facility] [place] [facility] [address] [id number] [place] [address] 15 Apr, 2010 [facility] [place] [facility] [address] [id number] [place] [address] 08 Apr, 2010 [facility] [place] [facility] [address] [id number], [place] [address] 20 Mar, 2010 [facility] [place] [facility] [address] [id number], [place] [address] 13 Mar, 2010 [facility] [place] [facility] [address] [id number] [place] [address] 29 May, 2009 [facility] [place] [facility] [address] [id number] [place] [address] 28 May, 2009 [facility] [place] [facility] [address] [id number] [place] [address] 21 May, 2009 [facility] [place] [facility] [id number], [place] [address] 14 May, 2009 [facility] [id number], [place] [address] May, [facility] [id number], [place] [address] May, [facility] [id number], [place] [address] May, [facility] [id number], [place] [address] Apr, [facility] [id number] [place] [address] Apr, [facility] [id number], [place] [address] Apr, [facility] [id number], [place] [address] Apr, [facility] [id number], [place] [address] Mar, [facility] [id number], [place] [address] Mar, [facility] [id number], [place] [address] Mar, [facility] [id number] [address] Jul, IMMUNIZATIONS No Known Immunizations SOCIAL HISTORY Never Assessed REASON FOR VISIT [facility] [place] VITAL SIGNS MEDICATIONS Unknown [...]
--- OUTSIDE RECORDS SUMMARY | 2018-11-07 12:43 | XMS REPORT ---
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 [id number] [place] [address] 19 Feb, 2011 [facility] [place] [facility] [address] [id number] [place] [address] 10 Feb, 2011 [facility] [place] [facility] [address] [id number] [place] [address] 08 Feb, 2011 [facility] [place] [facility] [address] [id number] [place] [address] 06 Feb, 2011 [facility] [place] [facility] [address] [id number] [place] [address] 06 Feb, 2011 [facility] [place] [facility] [address] [id number] [place] [address] 21 Jan, 2012 [facility] [place] [facility] [address] [id number] [place] [address] 15 Jan, 2012 [facility] [place] [facility] [address] [id number] [place] [address] 10 Jan, 2012 [facility] [place] [facility] [address] [id number] [place] [address] 09 Jan, 2012 [facility] [place] [facility] [address] [id number] [place] [address] 17 Dec, 2011 [facility] [place] [facility] [address] [id number] [place] [address] 12 Dec, 2011 [facility] [place] [facility] [address] [id number] [place] [address] 18 Nov, 2011 [facility] [place] [facility] [address] [id number] [place] [address] 14 Nov, 2011 [facility] [place] [facility] [address] [id number] [place] [address] 12 Nov, 2011 [facility] [place] [facility] [address] [id number] [place] [address] 30 Oct, 2011 [facility] [place] [facility] [address] [id number] [place] [address] October, [facility] [place] [facility] [address] [id number] [place] [address] October, [facility] [place] [facility] [address] [id number] [place] [address] Sep, [facility] [place] [facility] [address] [id number] [place] [address] Sep, [facility] [place] [facility] [address] [id number] [place] [address] Sep, [facility] [place] [facility] [address] [id number] [place] [address] 30 Aug, 2011 [facility] [place] [facility] [address] [id number] [place] [address] Aug, [facility] [place] [facility] [address] [id number] [place] [address] Aug, [facility] [place] [facility] [address] [id number] [place] [address] Aug, [facility] [place] [facility] [address] [id number] [place] [address] Aug, [facility] [place] [facility] [address] [id number] [place] [address] Aug, [facility] [place] [facility] [address] [id number] [place] [address] Aug, [facility] [place] [facility] [address] [id number] [place] [address] Aug, [facility] [place] [facility] [address] [id number] [place] [address] Aug, [facility] [place] [facility] [address] [id number] [place] [address] Aug, [facility] [place] [facility] [address] [id number] [place] [address] Jul, [facility] [place] [facility] [address] [id number] [place] [address] Jul, [facility] [place] [facility] [address] [id number] [place] [address] Jul, [facility] [place] [facility] [address] [id number] [place] [address] Jul, [facility] [place] [facility] [address] [id number] [place] [address] Jul, [facility] [place] [facility] [address] [id number] [place] [address] Jun, [facility] [place] [facility] [address] [facility] [id number] [place] [address] Jun, [facility] [place] [facility] [address] [facility] [id number] [place] [address] Jun, [facility] [place] [facility] [address] [id number] [place] [address] May, [facility] [place] [facility] [address] [facility] [id number] [place] [address] Apr, [facility] [place] [facility] [address] [facility] [id number] [place] [address] Apr, [facility] [place] [facility] [address] [facility] [id number] [place] [address] Apr, [facility] [place] [facility] [address] [id number] [place] [address] Apr, [facility] [place] [facility] [address] [facility] [id number] [place] [address] Apr, [facility] [place] [facility] [address] [facility] [id number] [place] [address] Mar, [facility] [place] [facility] [address] [facility] [id number] [place] [address] 14 Mar, 2011 [facility] [place] [facility] [address] [id number] [place] [address] 11 Mar, 2011 [facility] [place] [facility] [address] [id number] [place] [address] 11 Mar, 2011 [facility] [place] [facility] [address] [id number] [place] [address] 11 Mar, 2011 [facility] [place] [facility] [address] [id number] [place] [address] 11 Mar, 2011 [facility] [place] [facility] [address] [id number] [place] [address] 14 May, 2010 [facility] [place] [facility] [address] [id number] [place] [address] 30 Apr, 2010 [facility] [place] [facility] [address] [id number] [place] [address] 17 Apr, 2010 [facility] [place] [facility] [address] [id number] [place] [address] 17 Apr, 2010 [facility] [place] [facility] [address] [id number] [place] [address] 15 Apr, 2010 [facility] [place] [facility] [address] [id number] [place] [address] 08 Apr, 2010 [facility] [place] [facility] [address] [id number], [place] [address] 20 Mar, 2010 [facility] [place] [facility] [address] [id number], [place] [address] 13 Mar, 2010 [facility] [place] [facility] [address] [id number] [place] [address] 29 May, 2009 [facility] [place] [facility] [address] [id number] [place] [address] 28 May, 2009 [facility] [place] [facility] [address] [id number] [place] [address] 21 May, 2009 [facility] [place] [facility] [id number], [place] [address] 14 May, 2009 [facility] [place] [facility] [id number], [place] [address] May, [facility] [place] [facility] [id number], [place] [address] May, [facility] [place] [facility] [id number], [place] [address] May, [facility] [place] [facility] [id number], [place] [address] Apr, [facility] [place] [facility] [id number] [place] [address] Apr, [facility] [place] [facility] [id number], [place] [address] Apr, [facility] [place] [facility] [id number], [place] [address] Apr, [facility] [place] [facility] [id number], [place] [address] Mar, [facility] [place] [facility] [id number], [place] [address] Mar, [facility] [place] [facility] [id number], [place] [address] Mar, [facility] [place] [facility] [address] [id number], [place] [address] Jul, IMMUNIZATIONS No Known Immunizations SOCIAL HISTORY Never Assessed REASON FOR VISIT [facility] [place] PLAN OF CARE VITAL [...]
--- OUTSIDE RECORDS SUMMARY | 2018-11-07 12:44 | XMS REPORT ---
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 [id number] [place] [address] 19 Feb, 2011 [facility] [place] [facility] [address] [id number] [place] [address] 10 Feb, 2011 [facility] [place] [facility] [address] [id number] [place] [address] 08 Feb, 2011 [facility] [place] [facility] [address] [id number] [place] [address] 06 Feb, 2011 [facility] [place] [facility] [address] [id number] [place] [address] 06 Feb, 2011 [facility] [place] [facility] [address] [id number] [place] [address] 21 Jan, 2012 [facility] [place] [facility] [address] [id number] [place] [address] 15 Jan, 2012 [facility] [place] [facility] [address] [id number] [place] [address] 10 Jan, 2012 [facility] [place] [facility] [address] [id number] [place] [address] 09 Jan, 2012 [facility] [place] [facility] [address] [id number] [place] [address] 17 Dec, 2011 [facility] [place] [facility] [address] [id number] [place] [address] 12 Dec, 2011 [facility] [place] [facility] [address] [id number] [place] [address] 18 Nov, 2011 [facility] [place] [facility] [address] [id number] [place] [address] 14 Nov, 2011 [facility] [place] [facility] [address] [id number] [place] [address] 12 Nov, 2011 [facility] [place] [facility] [address] [id number] [place] [address] 30 Oct, 2011 [facility] [place] [facility] [address] [id number] [place] [address] October, [facility] [place] [facility] [address] [id number] [place] [address] October, [facility] [place] [facility] [address] [id number] [place] [address] Sep, [facility] [place] [facility] [address] [id number] [place] [address] Sep, [facility] [place] [facility] [address] [id number] [place] [address] Sep, [facility] [place] [facility] [address] [id number] [place] [address] 30 Aug, 2011 [facility] [place] [facility] [address] [id number] [place] [address] Aug, [facility] [place] [facility] [address] [id number] [place] [address] Aug, [facility] [place] [facility] [address] [id number] [place] [address] Aug, [facility] [place] [facility] [address] [id number] [place] [address] Aug, [facility] [place] [facility] [address] [id number] [place] [address] Aug, [facility] [place] [facility] [address] [id number] [place] [address] Aug, [facility] [place] [facility] [address] [id number] [place] [address] Aug, [facility] [place] [facility] [address] [id number] [place] [address] Aug, [facility] [place] [facility] [address] [id number] [place] [address] Aug, [facility] [place] [facility] [address] [id number] [place] [address] Jul, [facility] [place] [facility] [address] [id number] [place] [address] Jul, [facility] [place] [facility] [address] [id number] [place] [address] Jul, [facility] [place] [facility] [address] [id number] [place] [address] Jul, [facility] [place] [facility] [address] [id number] [place] [address] Jul, [facility] [place] [facility] [address] [id number] [place] [address] Jun, [facility] [place] [facility] [address] [facility] [id number] [place] [address] Jun, [facility] [place] [facility] [address] [facility] [id number] [place] [address] Jun, [facility] [place] [facility] [address] [id number] [place] [address] May, [facility] [place] [facility] [address] [facility] [id number] [place] [address] Apr, [facility] [place] [facility] [address] [facility] [id number] [place] [address] Apr, [facility] [place] [facility] [address] [facility] [id number] [place] [address] Apr, [facility] [place] [facility] [address] [id number] [place] [address] Apr, [facility] [place] [facility] [address] [facility] [id number] [place] [address] Apr, [facility] [place] [facility] [address] [facility] [id number] [place] [address] Mar, [facility] [place] [facility] [address] [facility] [id number] [place] [address] 14 Mar, 2011 [facility] [place] [facility] [address] [id number] [place] [address] 11 Mar, 2011 [facility] [place] [facility] [address] [id number] [place] [address] 11 Mar, 2011 [facility] [place] [facility] [address] [id number] [place] [address] 11 Mar, 2011 [facility] [place] [facility] [address] [id number] [place] [address] 11 Mar, 2011 [facility] [place] [facility] [address] [id number] [place] [address] 14 May, 2010 [facility] [place] [facility] [address] [id number] [place] [address] 30 Apr, 2010 [facility] [place] [facility] [address] [id number] [place] [address] 17 Apr, 2010 [facility] [place] [facility] [address] [id number] [place] [address] 17 Apr, 2010 [facility] [place] [facility] [address] [id number] [place] [address] 15 Apr, 2010 [facility] [place] [facility] [address] [id number] [place] [address] 08 Apr, 2010 [facility] [place] [facility] [address] [id number], [place] [address] 20 Mar, 2010 [facility] [place] [facility] [address] [id number], [place] [address] 13 Mar, 2010 [facility] [place] [facility] [address] [id number] [place] [address] 29 May, 2009 [facility] [place] [facility] [address] [id number] [place] [address] 28 May, 2009 [facility] [place] [facility] [address] [id number] [place] [address] 21 May, 2009 [facility] [place] [facility] [id number], [place] [address] 14 May, 2009 [facility] [id number], [place] [address] May, [facility] [id number], [place] [address] May, [facility] [id number], [place] [address] May, [facility] [id number], [place] [address] Apr, [facility] [id number] [place] [address] Apr, [facility] [id number], [place] [address] Apr, [facility] [id number], [place] [address] Apr, [facility] [id number], [place] [address] Mar, [facility] [id number], [place] [address] Mar, [facility] [id number], [place] [address] Mar, [facility] [address] [id number], [place] [address] Jul, IMMUNIZATIONS No Known Immunizations SOCIAL HISTORY Never Assessed REASON FOR VISIT [facility] [place] VITAL SIGNS MEDICATIONS Unknown [...]
--- OUTSIDE RECORDS SUMMARY | 2018-11-07 12:44 | XMS REPORT ---
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 [facility] [address] [id number] [place] [address] 20 Feb, 2011 [facility] [place] [facility] [address] [id number] [place] [address] 19 Feb, 2011 [facility] [place] [facility] [address] [id number] [place] [address] 10 Feb, 2011 [facility] [place] [facility] [address] [id number] [place] [address] 08 Feb, 2011 [facility] [place] [facility] [address] [id number] [place] [address] 06 Feb, 2011 [facility] [place] [facility] [address] [id number] [place] [address] 06 Feb, 2011 [facility] [place] [facility] [address] [id number] [place] [address] 21 Jan, 2012 [facility] [place] [facility] [address] [id number] [place] [address] 15 Jan, 2012 [facility] [place] [facility] [address] [id number] [place] [address] 10 Jan, 2012 [facility] [place] [facility] [address] [id number] [place] [address] 09 Jan, 2012 [facility] [place] [facility] [address] [id number] [place] [address] 17 Dec, 2011 [facility] [place] [facility] [address] [id number] [place] [address] 12 Dec, 2011 [facility] [place] [facility] [address] [id number] [place] [address] 18 Nov, 2011 [facility] [place] [facility] [address] [id number] [place] [address] 14 Nov, 2011 [facility] [place] [facility] [address] [id number] [place] [address] 12 Nov, 2011 [facility] [place] [facility] [address] [id number] [place] [address] 30 Oct, 2011 [facility] [place] [facility] [address] [id number] [place] [address] October, [facility] [place] [facility] [address] [id number] [place] [address] October, [facility] [place] [facility] [address] [id number] [place] [address] Sep, [facility] [place] [facility] [address] [id number] [place] [address] Sep, [facility] [place] [facility] [address] [id number] [place] [address] Sep, [facility] [place] [facility] [address] [id number] [place] [address] 30 Aug, 2011 [facility] [place] [facility] [address] [id number] [place] [address] Aug, [facility] [place] [facility] [address] [id number] [place] [address] Aug, [facility] [place] [facility] [address] [id number] [place] [address] Aug, [facility] [place] [facility] [address] [id number] [place] [address] Aug, [facility] [place] [facility] [address] [id number] [place] [address] Aug, [facility] [place] [facility] [address] [id number] [place] [address] Aug, [facility] [place] [facility] [address] [id number] [place] [address] Aug, [facility] [place] [facility] [address] [id number] [place] [address] Aug, [facility] [place] [facility] [address] [id number] [place] [address] Aug, [facility] [place] [facility] [address] [id number] [place] [address] Jul, [facility] [place] [facility] [address] [id number] [place] [address] Jul, [facility] [place] [facility] [address] [id number] [place] [address] Jul, [facility] [place] [facility] [address] [id number] [place] [address] Jul, [facility] [place] [facility] [address] [id number] [place] [address] Jul, [facility] [place] [facility] [address] [id number] [place] [address] Jun, [facility] [place] [facility] [address] [facility] [id number] [place] [address] Jun, [facility] [place] [facility] [address] [facility] [id number] [place] [address] Jun, [facility] [place] [facility] [address] [id number] [place] [address] May, [facility] [place] [facility] [address] [facility] [id number] [place] [address] Apr, [facility] [place] [facility] [address] [facility] [id number] [place] [address] Apr, [facility] [place] [facility] [address] [facility] [id number] [place] [address] Apr, [facility] [place] [facility] [address] [id number] [place] [address] Apr, [facility] [place] [facility] [address] [facility] [id number] [place] [address] Apr, [facility] [place] [facility] [address] [facility] [id number] [place] [address] Mar, [facility] [place] [facility] [address] [facility] [id number] [place] [address] 14 Mar, 2011 [facility] [place] [facility] [address] [id number] [place] [address] 11 Mar, 2011 [facility] [place] [facility] [address] [id number] [place] [address] 11 Mar, 2011 [facility] [place] [facility] [address] [id number] [place] [address] 11 Mar, 2011 [facility] [place] [facility] [address] [id number] [place] [address] 11 Mar, 2011 [facility] [place] [facility] [address] [id number] [place] [address] 14 May, 2010 [facility] [place] [facility] [address] [id number] [place] [address] 30 Apr, 2010 [facility] [place] [facility] [address] [id number] [place] [address] 17 Apr, 2010 [facility] [place] [facility] [address] [id number] [place] [address] 17 Apr, 2010 [facility] [place] [facility] [address] [id number] [place] [address] 15 Apr, 2010 [facility] [place] [facility] [address] [id number] [place] [address] 08 Apr, 2010 [facility] [place] [facility] [address] [id number], [place] [address] 20 Mar, 2010 [facility] [place] [facility] [address] [id number], [place] [address] 13 Mar, 2010 [facility] [place] [facility] [address] [id number] [place] [address] 29 May, 2009 [facility] [place] [facility] [address] [id number] [place] [address] 28 May, 2009 [facility] [place] [facility] [address] [id number] [place] [address] 21 May, 2009 [facility] [place] [facility] [id number], [place] [address] 14 May, 2009 [facility] [id number], [place] [address] May, [facility] [id number], [place] [address] May, [facility] [id number], [place] [address] May, [facility] [id number], [place] [address] Apr, [facility] [id number] [place] [address] Apr, [facility] [id number], [place] [address] Apr, [facility] [id number], [place] [address] Apr, [facility] [id number], [place] [address] Mar, [facility] [id number], [place] [address] Mar, [facility] [id number], [place] [address] Mar, [facility] [address] [id number] [address] Jul, IMMUNIZATIONS No Known Immunizations SOCIAL HISTORY Never Assessed REASON FOR VISIT [facility] [place] PLAN OF CARE VITAL SIGNS MEDICATIONS Unknown [...]
--- OUTSIDE RECORDS SUMMARY | 2018-11-07 12:45 | XMS REPORT ---
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 [place] [facility] [address] [id number] [place] [address] 15 Jan, 2012 [facility] [place] [facility] [address] [id number] [place] [address] 10 Jan, 2012 [facility] [place] [facility] [address] [id number] [place] [address] 09 Jan, 2012 [facility] [place] [facility] [address] [id number] [place] [address] 17 Dec, 2011 [facility] [place] [facility] [address] [id number] [place] [address] 12 Dec, 2011 [facility] [place] [facility] [address] [id number] [place] [address] 18 Nov, 2011 [facility] [place] [facility] [address] [id number] [place] [address] 14 Nov, 2011 [facility] [place] [facility] [address] [id number] [place] [address] 12 Nov, 2011 [facility] [place] [facility] [address] [id number] [place] [address] 30 Oct, 2011 [facility] [place] [facility] [address] [id number] [place] [address] October, [facility] [place] [facility] [address] [id number] [place] [address] October, [facility] [place] [facility] [address] [id number] [place] [address] Sep, [facility] [place] [facility] [address] [id number] [place] [address] Sep, [facility] [place] [facility] [address] [id number] [place] [address] Sep, [facility] [place] [facility] [address] [id number] [place] [address] 30 Aug, 2011 [facility] [place] [facility] [address] [id number] [place] [address] Aug, [facility] [place] [facility] [address] [id number] [place] [address] Aug, [facility] [place] [facility] [address] [id number] [place] [address] Aug, [facility] [place] [facility] [address] [id number] [place] [address] Aug, [facility] [place] [facility] [address] [id number] [place] [address] Aug, [facility] [place] [facility] [address] [id number] [place] [address] Aug, [facility] [place] [facility] [address] [id number] [place] [address] Aug, [facility] [place] [facility] [address] [id number] [place] [address] Aug, [facility] [place] [facility] [address] [id number] [place] [address] Aug, [facility] [place] [facility] [address] [id number] [place] [address] Jul, [facility] [place] [facility] [address] [id number] [place] [address] Jul, [facility] [place] [facility] [address] [id number] [place] [address] Jul, [facility] [place] [facility] [address] [id number] [place] [address] Jul, [facility] [place] [facility] [address] [id number] [place] [address] Jul, [facility] [place] [facility] [address] [id number] [place] [address] Jun, [facility] [place] [facility] [address] [id number] [place] [address] Jun, [facility] [place] [facility] [address] [id number] [place] [address] Jun, [facility] [place] [facility] [address] [id number] [place] [address] May, [facility] [place] [facility] [address] [id number] [place] [address] Apr, [facility] [place] [facility] [address] [id number] [place] [address] Apr, [facility] [place] [facility] [address] [id number] [place] [address] Apr, [facility] [place] [facility] [address] [id number] [place] [address] Apr, [facility] [place] [facility] [address] [id number] [place] [address] Apr, [facility] [place] [facility] [address] [id number] [place] [address] Mar, [facility] [place] [facility] [address] [id number] [place] [address] 14 Mar, 2011 [facility] [place] [facility] [address] [id number] [place] [address] 11 Mar, 2011 [facility] [place] [facility] [address] [id number] [place] [address] 11 Mar, 2011 [facility] [place] [facility] [address] [id number] [place] [address] 11 Mar, 2011 [facility] [place] [facility] [address] [id number] [place] [address] 11 Mar, 2011 [facility] [place] [facility] [address] [id number] [place] [address] 14 May, 2010 [facility] [place] [facility] [address] [id number] [place] [address] 30 Apr, 2010 [facility] [place] [facility] [address] [id number] [place] [address] 17 Apr, 2010 [facility] [place] [facility] [address] [id number] [place] [address] 17 Apr, 2010 [facility] [place] [facility] [address] [id number] [place] [address] 15 Apr, 2010 [facility] [place] [facility] [address] [id number] [place] [address] 08 Apr, 2010 [facility] [place] [facility] [address] [id number] [address] 20 Mar, 2010 [facility] [place] [facility] [address] [id number], [place] [address] 13 Mar, 2010 [facility] [place] [facility] [address] [id number] [place] [address] 29 May, 2009 [facility] [place] [facility] [address] [id number] [place] [address] 28 May, 2009 [facility] [place] [facility] [address] [id number] [place] [address] 21 May, 2009 [facility] [place] [facility] [id number] [address] 14 May, 2009 [facility] [id number] [address] May, [facility] [id number], [place] [address] May, [facility] [id number], [place] [address] May, [facility] [id number], [place] [address] Apr, [facility] [id number] [place] [address] Apr, [facility] [id number], [place] [address] Apr, [facility] [id number], [place] [address] Apr, [facility] [id number], [place] [address] Mar, [facility] [id number], [place] [address] Mar, [facility] [id number], [place] [address] Mar, [facility] [id number] [address] Jul, IMMUNIZATIONS No Known Immunizations SOCIAL HISTORY Never Assessed REASON FOR VISIT [facility] [place] PLAN OF CARE [...]
--- OUTSIDE RECORDS SUMMARY | 2018-11-07 12:45 | XMS REPORT ---
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 [place] [address] 10 Feb, 2011 [facility] [place] [facility] [address] [id number] [place] [address] 08 Feb, 2011 [facility] [place] [facility] [address] [id number] [place] [address] 06 Feb, 2011 [facility] [place] [facility] [address] [id number] [place] [address] 06 Feb, 2011 [facility] [place] [facility] [address] [id number] [place] [address] 21 Jan, 2012 [facility] [place] [facility] [address] [id number] [place] [address] 15 Jan, 2012 [facility] [place] [facility] [address] [id number] [place] [address] 10 Jan, 2012 [facility] [place] [facility] [address] [id number] [place] [address] 09 Jan, 2012 [facility] [place] [facility] [address] [id number] [place] [address] 17 Dec, 2011 [facility] [place] [facility] [address] [id number] [place] [address] 12 Dec, 2011 [facility] [place] [facility] [address] [id number] [place] [address] 18 Nov, 2011 [facility] [place] [facility] [address] [id number] [place] [address] 14 Nov, 2011 [facility] [place] [facility] [address] [id number] [place] [address] 12 Nov, 2011 [facility] [place] [facility] [address] [id number] [place] [address] 30 Oct, 2011 [facility] [place] [facility] [address] [id number] [place] [address] October, [facility] [place] [facility] [address] [id number] [place] [address] October, [facility] [place] [facility] [address] [id number] [place] [address] Sep, [facility] [place] [facility] [address] [id number] [place] [address] Sep, [facility] [place] [facility] [address] [id number] [place] [address] Sep, [facility] [place] [facility] [address] [id number] [place] [address] 30 Aug, 2011 [facility] [place] [facility] [address] [id number] [place] [address] Aug, [facility] [place] [facility] [address] [id number] [place] [address] Aug, [facility] [place] [facility] [address] [id number] [place] [address] Aug, [facility] [place] [facility] [address] [id number] [place] [address] Aug, [facility] [place] [facility] [address] [id number] [place] [address] Aug, [facility] [place] [facility] [address] [id number] [place] [address] Aug, [facility] [place] [facility] [address] [id number] [place] [address] Aug, [facility] [place] [facility] [address] [id number] [place] [address] Aug, [facility] [place] [facility] [address] [id number] [place] [address] Aug, [facility] [place] [facility] [address] [id number] [place] [address] Jul, [facility] [place] [facility] [address] [id number] [place] [address] Jul, [facility] [place] [facility] [address] [id number] [place] [address] Jul, [facility] [place] [facility] [address] [id number] [place] [address] Jul, [facility] [place] [facility] [address] [id number] [place] [address] Jul, [facility] [place] [facility] [address] [id number] [place] [address] Jun, [facility] [place] [facility] [address] [facility] [id number] [place] [address] Jun, [facility] [place] [facility] [address] [facility] [id number] [place] [address] Jun, [facility] [place] [facility] [address] [id number] [place] [address] May, [facility] [place] [facility] [address] [facility] [id number] [place] [address] Apr, [facility] [place] [facility] [address] [facility] [id number] [place] [address] Apr, [facility] [place] [facility] [address] [facility] [id number] [place] [address] Apr, [facility] [place] [facility] [address] [id number] [place] [address] Apr, [facility] [place] [facility] [address] [facility] [id number] [place] [address] Apr, [facility] [place] [facility] [address] [facility] [id number] [place] [address] Mar, [facility] [place] [facility] [address] [facility] [id number] [place] [address] 14 Mar, 2011 [facility] [place] [facility] [address] [id number] [place] [address] 11 Mar, 2011 [facility] [place] [facility] [address] [id number] [place] [address] 11 Mar, 2011 [facility] [place] [facility] [address] [id number] [place] [address] 11 Mar, 2011 [facility] [place] [facility] [address] [id number] [place] [address] 11 Mar, 2011 [facility] [place] [facility] [address] [id number] [place] [address] 14 May, 2010 [facility] [place] [facility] [address] [id number] [place] [address] 30 Apr, 2010 [facility] [place] [facility] [address] [id number] [place] [address] 17 Apr, 2010 [facility] [place] [facility] [address] [id number] [place] [address] 17 Apr, 2010 [facility] [place] [facility] [address] [id number] [place] [address] 15 Apr, 2010 [facility] [place] [facility] [address] [id number] [place] [address] 08 Apr, 2010 [facility] [place] [facility] [address] [id number], [place] [address] 20 Mar, 2010 [facility] [place] [facility] [address] [id number], [place] [address] 13 Mar, 2010 [facility] [place] [facility] [address] [id number] [place] [address] 29 May, 2009 [facility] [place] [facility] [address] [id number] [place] [address] 28 May, 2009 [facility] [place] [facility] [address] [id number] [place] [address] 21 May, 2009 [facility] [place] [facility] [id number] [address] 14 May, 2009 [facility] [id number] [address] May, [facility] [id number] [address] May, [facility] [id number] [address] May, [facility] [id number] [address] Apr, [facility] [id number] [place] [address] Apr, [facility] [id number] [address] Apr, [facility] [id number] [address] Apr, [facility] [id number] [address] Mar, [facility] [id number] [address] Mar, [facility] [id number] [address] Mar, [facility] [id number] [address] Jul, IMMUNIZATIONS No Known Immunizations SOCIAL HISTORY Never Assessed REASON FOR VISIT [facility] [place] PLAN OF CARE VITAL SIGNS MEDICATIONS [...]
--- OUTSIDE RECORDS SUMMARY | 2018-11-07 12:46 | XMS REPORT ---
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 [place] [address] 19 Feb, 2011 [facility] [place] [facility] [address] [id number] [place] [address] 10 Feb, 2011 [facility] [place] [facility] [address] [id number] [place] [address] 08 Feb, 2011 [facility] [place] [facility] [address] [id number] [place] [address] 06 Feb, 2011 [facility] [place] [facility] [address] [id number] [place] [address] 06 Feb, 2011 [facility] [place] [facility] [address] [id number] [place] [address] 21 Jan, 2012 [facility] [place] [facility] [address] [id number] [place] [address] 15 Jan, 2012 [facility] [place] [facility] [address] [id number] [place] [address] 10 Jan, 2012 [facility] [place] [facility] [address] [id number] [place] [address] 09 Jan, 2012 [facility] [place] [facility] [address] [id number] [place] [address] 17 Dec, 2011 [facility] [place] [facility] [address] [id number] [place] [address] 12 Dec, 2011 [facility] [place] [facility] [address] [id number] [place] [address] 18 Nov, 2011 [facility] [place] [facility] [address] [id number] [place] [address] 14 Nov, 2011 [facility] [place] [facility] [address] [id number] [place] [address] 12 Nov, 2011 [facility] [place] [facility] [address] [id number] [place] [address] 30 Oct, 2011 [facility] [place] [facility] [address] [id number] [place] [address] October, [facility] [place] [facility] [address] [id number] [place] [address] October, [facility] [place] [facility] [address] [id number] [place] [address] Sep, [facility] [place] [facility] [address] [id number] [place] [address] Sep, [facility] [place] [facility] [address] [id number] [place] [address] Sep, [facility] [place] [facility] [address] [id number] [place] [address] 30 Aug, 2011 [facility] [place] [facility] [address] [id number] [place] [address] Aug, [facility] [place] [facility] [address] [id number] [place] [address] Aug, [facility] [place] [facility] [address] [id number] [place] [address] Aug, [facility] [place] [facility] [address] [id number] [place] [address] Aug, [facility] [place] [facility] [address] [id number] [place] [address] Aug, [facility] [place] [facility] [address] [id number] [place] [address] Aug, [facility] [place] [facility] [address] [id number] [place] [address] Aug, [facility] [place] [facility] [address] [id number] [place] [address] Aug, [facility] [place] [facility] [address] [id number] [place] [address] Aug, [facility] [place] [facility] [address] [id number] [place] [address] Jul, [facility] [place] [facility] [address] [id number] [place] [address] Jul, [facility] [place] [facility] [address] [id number] [place] [address] Jul, [facility] [place] [facility] [address] [id number] [place] [address] Jul, [facility] [place] [facility] [address] [id number] [place] [address] Jul, [facility] [place] [facility] [address] [id number] [place] [address] Jun, [facility] [place] [facility] [address] [facility] [id number] [place] [address] Jun, [facility] [place] [facility] [address] [facility] [id number] [place] [address] Jun, [facility] [place] [facility] [address] [id number] [place] [address] May, [facility] [place] [facility] [address] [facility] [id number] [place] [address] Apr, [facility] [place] [facility] [address] [facility] [id number] [place] [address] Apr, [facility] [place] [facility] [address] [facility] [id number] [place] [address] Apr, [facility] [place] [facility] [address] [id number] [place] [address] Apr, [facility] [place] [facility] [address] [facility] [id number] [place] [address] Apr, [facility] [place] [facility] [address] [facility] [id number] [place] [address] Mar, [facility] [place] [facility] [address] [facility] [id number] [place] [address] 14 Mar, 2011 [facility] [place] [facility] [address] [id number] [place] [address] 11 Mar, 2011 [facility] [place] [facility] [address] [id number] [place] [address] 11 Mar, 2011 [facility] [place] [facility] [address] [id number] [place] [address] 11 Mar, 2011 [facility] [place] [facility] [address] [id number] [place] [address] 11 Mar, 2011 [facility] [place] [facility] [address] [id number] [place] [address] 14 May, 2010 [facility] [place] [facility] [address] [id number] [place] [address] 30 Apr, 2010 [facility] [place] [facility] [address] [id number] [place] [address] 17 Apr, 2010 [facility] [place] [facility] [address] [id number] [place] [address] 17 Apr, 2010 [facility] [place] [facility] [address] [id number] [place] [address] 15 Apr, 2010 [facility] [place] [facility] [address] [id number] [place] [address] 08 Apr, 2010 [facility] [place] [facility] [address] [id number], [place] [address] 20 Mar, 2010 [facility] [place] [facility] [address] [id number], [place] [address] 13 Mar, 2010 [facility] [place] [facility] [address] [id number] [place] [address] 29 May, 2009 [facility] [place] [facility] [address] [id number] [place] [address] 28 May, 2009 [facility] [place] [facility] [address] [id number] [place] [address] 21 May, 2009 [facility] [place] [facility] [address], [place] [address] 14 May, 2009 [facility] [address], [place] [address] May, [facility] [address], [place] [address] May, [facility] [address], [place] [address] May, [facility] [address], [place] [address] Apr, [facility] [id number] [place] [address] Apr, [facility] [address], [place] [address] Apr, [facility] [address], [place] [address] Apr, [facility] [address], [place] [address] Mar, [facility] [address], [place] [address] Mar, [facility] [address], [place] [address] Mar, [facility] [id number] [address] Jul, IMMUNIZATIONS No Known Immunizations SOCIAL HISTORY Never Assessed REASON FOR VISIT [facility] [place] VITAL SIGNS MEDICATIONS Unknown [...]
--- OUTSIDE RECORDS SUMMARY | 2018-11-07 12:47 | XMS REPORT ---
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 19 Feb, 2011 [facility] [place] [facility] [address] [id number] [place] [address] 10 Feb, 2011 [facility] [place] [facility] [address] [id number] [place] [address] 08 Feb, 2011 [facility] [place] [facility] [address] [id number] [place] [address] 06 Feb, 2011 [facility] [place] [facility] [address] [id number] [place] [address] 06 Feb, 2011 [facility] [place] [facility] [address] [id number] [place] [address] 21 Jan, 2012 [facility] [place] [facility] [address] [id number] [place] [address] 15 Jan, 2012 [facility] [place] [facility] [address] [id number] [place] [address] 10 Jan, 2012 [facility] [place] [facility] [address] [id number] [place] [address] 09 Jan, 2012 [facility] [place] [facility] [address] [id number] [place] [address] 17 Dec, 2011 [facility] [place] [facility] [address] [id number] [place] [address] 12 Dec, 2011 [facility] [place] [facility] [address] [id number] [place] [address] 18 Nov, 2011 [facility] [place] [facility] [address] [id number] [place] [address] 14 Nov, 2011 [facility] [place] [facility] [address] [id number] [place] [address] 12 Nov, 2011 [facility] [place] [facility] [address] [id number] [place] [address] 30 Oct, 2011 [facility] [place] [facility] [address] [id number] [place] [address] October, [facility] [place] [facility] [address] [id number] [place] [address] October, [facility] [place] [facility] [address] [id number] [place] [address] Sep, [facility] [place] [facility] [address] [id number] [place] [address] Sep, [facility] [place] [facility] [address] [id number] [place] [address] Sep, [facility] [place] [facility] [address] [id number] [place] [address] 30 Aug, 2011 [facility] [place] [facility] [address] [id number] [place] [address] Aug, [facility] [place] [facility] [address] [id number] [place] [address] Aug, [facility] [place] [facility] [address] [id number] [place] [address] Aug, [facility] [place] [facility] [address] [id number] [place] [address] Aug, [facility] [place] [facility] [address] [id number] [place] [address] Aug, [facility] [place] [facility] [address] [id number] [place] [address] Aug, [facility] [place] [facility] [address] [id number] [place] [address] Aug, [facility] [place] [facility] [address] [id number] [place] [address] Aug, [facility] [place] [facility] [address] [id number] [place] [address] Aug, [facility] [place] [facility] [address] [id number] [place] [address] Jul, [facility] [place] [facility] [address] [id number] [place] [address] Jul, [facility] [place] [facility] [address] [id number] [place] [address] Jul, [facility] [place] [facility] [address] [id number] [place] [address] Jul, [facility] [place] [facility] [address] [id number] [place] [address] Jul, [facility] [place] [facility] [address] [id number] [place] [address] Jun, [facility] [place] [facility] [address] [facility] [id number] [place] [address] Jun, [facility] [place] [facility] [address] [facility] [id number] [place] [address] Jun, [facility] [place] [facility] [address] [id number] [place] [address] May, [facility] [place] [facility] [address] [facility] [id number] [place] [address] Apr, [facility] [place] [facility] [address] [facility] [id number] [place] [address] Apr, [facility] [place] [facility] [address] [facility] [id number] [place] [address] Apr, [facility] [place] [facility] [address] [id number] [place] [address] Apr, [facility] [place] [facility] [address] [facility] [id number] [place] [address] Apr, [facility] [place] [facility] [address] [facility] [id number] [place] [address] Mar, [facility] [place] [facility] [address] [facility] [id number] [place] [address] 14 Mar, 2011 [facility] [place] [facility] [address] [id number] [place] [address] 11 Mar, 2011 [facility] [place] [facility] [address] [id number] [place] [address] 11 Mar, 2011 [facility] [place] [facility] [address] [id number] [place] [address] 11 Mar, 2011 [facility] [place] [facility] [address] [id number] [place] [address] 11 Mar, 2011 [facility] [place] [facility] [address] [id number] [place] [address] 14 May, 2010 [facility] [place] [facility] [address] [id number] [place] [address] 30 Apr, 2010 [facility] [place] [facility] [address] [id number] [place] [address] 17 Apr, 2010 [facility] [place] [facility] [address] [id number] [place] [address] 17 Apr, 2010 [facility] [place] [facility] [address] [id number] [place] [address] 15 Apr, 2010 [facility] [place] [facility] [address] [id number] [place] [address] 08 Apr, 2010 [facility] [place] [facility] [address] [id number], [place] [address] 20 Mar, 2010 [facility] [place] [facility] [address] [id number], [place] [address] 13 Mar, 2010 [facility] [place] [facility] [address] [id number] [place] [address] 29 May, 2009 [facility] [place] [facility] [address] [id number] [place] [address] 28 May, 2009 [facility] [place] [facility] [address] [id number] [place] [address] 21 May, 2009 [facility] [place] [facility] [address], [place] [address] 14 May, 2009 [facility] [id number], [place] [address] May, [facility] [id number], [place] [address] May, [facility] [id number], [place] [address] May, [facility] [id number], [place] [address] Apr, [facility] [id number] [place] [address] Apr, [facility] [id number], [place] [address] Apr, [facility] [address], [place] [address] Apr, [facility] [address], [place] [address] Mar, [facility] [address], [place] [address] Mar, [facility] [address], [place] [address] Mar, [facility] [address] [id number] [address] Jul, IMMUNIZATIONS No Known Immunizations SOCIAL HISTORY Never Assessed REASON FOR VISIT [facility] PLAN OF CARE VITAL SIGNS MEDICATIONS Unknown [...]
--- OUTSIDE RECORDS SUMMARY | 2018-11-07 12:47 | XMS REPORT ---
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 20 Feb, 2011 [facility] [place] [facility] [address] [id number] [place] [address] 19 Feb, 2011 [facility] [place] [facility] [address] [id number] [place] [address] 10 Feb, 2011 [facility] [place] [facility] [address] [id number] [place] [address] 08 Feb, 2011 [facility] [place] [facility] [address] [id number] [place] [address] 06 Feb, 2011 [facility] [place] [facility] [address] [id number] [place] [address] 06 Feb, 2011 [facility] [place] [facility] [address] [id number] [place] [address] 21 Jan, 2012 [facility] [place] [facility] [address] [id number] [place] [address] 15 Jan, 2012 [facility] [place] [facility] [address] [id number] [place] [address] 10 Jan, 2012 [facility] [place] [facility] [address] [id number] [place] [address] 09 Jan, 2012 [facility] [place] [facility] [address] [id number] [place] [address] 17 Dec, 2011 [facility] [place] [facility] [address] [id number] [place] [address] 12 Dec, 2011 [facility] [place] [facility] [address] [id number] [place] [address] 18 Nov, 2011 [facility] [place] [facility] [address] [id number] [place] [address] 14 Nov, 2011 [facility] [place] [facility] [address] [id number] [place] [address] 12 Nov, 2011 [facility] [place] [facility] [address] [id number] [place] [address] 30 Oct, 2011 [facility] [place] [facility] [address] [id number] [place] [address] October, [facility] [place] [facility] [address] [id number] [place] [address] October, [facility] [place] [facility] [address] [id number] [place] [address] Sep, [facility] [place] [facility] [address] [id number] [place] [address] Sep, [facility] [place] [facility] [address] [id number] [place] [address] Sep, [facility] [place] [facility] [address] [id number] [place] [address] 30 Aug, 2011 [facility] [place] [facility] [address] [id number] [place] [address] Aug, [facility] [place] [facility] [address] [id number] [place] [address] Aug, [facility] [place] [facility] [address] [id number] [place] [address] Aug, [facility] [place] [facility] [address] [id number] [place] [address] Aug, [facility] [place] [facility] [address] [id number] [place] [address] Aug, [facility] [place] [facility] [address] [id number] [place] [address] Aug, [facility] [place] [facility] [address] [id number] [place] [address] Aug, [facility] [place] [facility] [address] [id number] [place] [address] Aug, [facility] [place] [facility] [address] [id number] [place] [address] Aug, [facility] [place] [facility] [address] [id number] [place] [address] Jul, [facility] [place] [facility] [address] [id number] [place] [address] Jul, [facility] [place] [facility] [address] [id number] [place] [address] Jul, [facility] [place] [facility] [address] [id number] [place] [address] Jul, [facility] [place] [facility] [address] [id number] [place] [address] Jul, [facility] [place] [facility] [address] [id number] [place] [address] Jun, [facility] [place] [facility] [address] [facility] [id number] [place] [address] Jun, [facility] [place] [facility] [address] [facility] [id number] [place] [address] Jun, [facility] [place] [facility] [address] [id number] [place] [address] May, [facility] [place] [facility] [address] [facility] [id number] [place] [address] Apr, [facility] [place] [facility] [address] [facility] [id number] [place] [address] Apr, [facility] [place] [facility] [address] [facility] [id number] [place] [address] Apr, [facility] [place] [facility] [address] [id number] [place] [address] Apr, [facility] [place] [facility] [address] [facility] [id number] [place] [address] Apr, [facility] [place] [facility] [address] [facility] [id number] [place] [address] Mar, [facility] [place] [facility] [address] [facility] [id number] [place] [address] 14 Mar, 2011 [facility] [place] [facility] [address] [id number] [place] [address] 11 Mar, 2011 [facility] [place] [facility] [address] [id number] [place] [address] 11 Mar, 2011 [facility] [place] [facility] [address] [id number] [place] [address] 11 Mar, 2011 [facility] [place] [facility] [address] [id number] [place] [address] 11 Mar, 2011 [facility] [place] [facility] [address] [id number] [place] [address] 14 May, 2010 [facility] [place] [facility] [address] [id number] [place] [address] 30 Apr, 2010 [facility] [place] [facility] [address] [id number] [place] [address] 17 Apr, 2010 [facility] [place] [facility] [address] [id number] [place] [address] 17 Apr, 2010 [facility] [place] [facility] [address] [id number] [place] [address] 15 Apr, 2010 [facility] [place] [facility] [address] [id number] [place] [address] 08 Apr, 2010 [facility] [place] [facility] [address] [id number], [place] [address] 20 Mar, 2010 [facility] [place] [facility] [address] [id number], [place] [address] 13 Mar, 2010 [facility] [place] [facility] [address] [id number] [place] [address] 29 May, 2009 [facility] [place] [facility] [address] [id number] [place] [address] 28 May, 2009 [facility] [place] [facility] [address] [id number] [place] [address] 21 May, 2009 [facility] [place] [facility] [id number], [place] [address] 14 May, 2009 [facility] [id number], [place] [address] May, [facility] [id number], [place] [address] May, [facility] [id number], [place] [address] May, [facility] [id number], [place] [address] Apr, [facility] [id number] [place] [address] Apr, [facility] [id number], [place] [address] Apr, [facility] [id number], [place] [address] Apr, [facility] [id number], [place] [address] Mar, [facility] [id number], [place] [address] Mar, [facility] [id number], [place] [address] Mar, [facility] [id number], [place] [address] Jul, IMMUNIZATIONS No Known Immunizations SOCIAL HISTORY Never Assessed REASON FOR VISIT [facility] [place] PLAN OF CARE VITAL SIGNS MEDICATIONS Unknown [...]
--- OUTSIDE RECORDS SUMMARY | 2018-11-07 12:48 | XMS REPORT ---
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 [facility] [place] [facility] [address] [id number] [place] [address] 19 Feb, 2011 [facility] [place] [facility] [address] [id number] [place] [address] 10 Feb, 2011 [facility] [place] [facility] [address] [id number] [place] [address] 08 Feb, 2011 [facility] [place] [facility] [address] [id number] [place] [address] 06 Feb, 2011 [facility] [place] [facility] [address] [id number] [place] [address] 06 Feb, 2011 [facility] [place] [facility] [address] [id number] [place] [address] 21 Jan, 2012 [facility] [place] [facility] [address] [id number] [place] [address] 15 Jan, 2012 [facility] [place] [facility] [address] [id number] [place] [address] 10 Jan, 2012 [facility] [place] [facility] [address] [id number] [place] [address] 09 Jan, 2012 [facility] [place] [facility] [address] [id number] [place] [address] 17 Dec, 2011 [facility] [place] [facility] [address] [id number] [place] [address] 12 Dec, 2011 [facility] [place] [facility] [address] [id number] [place] [address] 18 Nov, 2011 [facility] [place] [facility] [address] [id number] [place] [address] 14 Nov, 2011 [facility] [place] [facility] [address] [id number] [place] [address] 12 Nov, 2011 [facility] [place] [facility] [address] [id number] [place] [address] 30 Oct, 2011 [facility] [place] [facility] [address] [id number] [place] [address] October, [facility] [place] [facility] [address] [id number] [place] [address] October, [facility] [place] [facility] [address] [id number] [place] [address] Sep, [facility] [place] [facility] [address] [id number] [place] [address] Sep, [facility] [place] [facility] [address] [id number] [place] [address] Sep, [facility] [place] [facility] [address] [id number] [place] [address] 30 Aug, 2011 [facility] [place] [facility] [address] [id number] [place] [address] Aug, [facility] [place] [facility] [address] [id number] [place] [address] Aug, [facility] [place] [facility] [address] [id number] [place] [address] Aug, [facility] [place] [facility] [address] [id number] [place] [address] Aug, [facility] [place] [facility] [address] [id number] [place] [address] Aug, [facility] [place] [facility] [address] [id number] [place] [address] Aug, [facility] [place] [facility] [address] [id number] [place] [address] Aug, [facility] [place] [facility] [address] [id number] [place] [address] Aug, [facility] [place] [facility] [address] [id number] [place] [address] Aug, [facility] [place] [facility] [address] [id number] [place] [address] Jul, [facility] [place] [facility] [address] [id number] [place] [address] Jul, [facility] [place] [facility] [address] [id number] [place] [address] Jul, [facility] [place] [facility] [address] [id number] [place] [address] Jul, [facility] [place] [facility] [address] [id number] [place] [address] Jul, [facility] [place] [facility] [address] [id number] [place] [address] Jun, [facility] [place] [facility] [address] [facility] [id number] [place] [address] Jun, [facility] [place] [facility] [address] [facility] [id number] [place] [address] Jun, [facility] [place] [facility] [address] [id number] [place] [address] May, [facility] [place] [facility] [address] [facility] [id number] [place] [address] Apr, [facility] [place] [facility] [address] [facility] [id number] [place] [address] Apr, [facility] [place] [facility] [address] [facility] [id number] [place] [address] Apr, [facility] [place] [facility] [address] [id number] [place] [address] Apr, [facility] [place] [facility] [address] [facility] [id number] [place] [address] Apr, [facility] [place] [facility] [address] [facility] [id number] [place] [address] Mar, [facility] [place] [facility] [address] [facility] [id number] [place] [address] 14 Mar, 2011 [facility] [place] [facility] [address] [id number] [place] [address] 11 Mar, 2011 [facility] [place] [facility] [address] [id number] [place] [address] 11 Mar, 2011 [facility] [place] [facility] [address] [id number] [place] [address] 11 Mar, 2011 [facility] [place] [facility] [address] [id number] [place] [address] 11 Mar, 2011 [facility] [place] [facility] [address] [id number] [place] [address] 14 May, 2010 [facility] [place] [facility] [address] [id number] [place] [address] 30 Apr, 2010 [facility] [place] [facility] [address] [id number] [place] [address] 17 Apr, 2010 [facility] [place] [facility] [address] [id number] [place] [address] 17 Apr, 2010 [facility] [place] [facility] [address] [id number] [place] [address] 15 Apr, 2010 [facility] [place] [facility] [address] [id number] [place] [address] 08 Apr, 2010 [facility] [place] [facility] [address] [id number], [place] [address] 20 Mar, 2010 [facility] [place] [facility] [address] [id number], [place] [address] 13 Mar, 2010 [facility] [place] [facility] [address] [id number] [place] [address] 29 May, 2009 [facility] [place] [facility] [address] [id number] [place] [address] 28 May, 2009 [facility] [place] [facility] [address] [id number] [place] [address] 21 May, 2009 [facility] [place] [facility] [id number], [place] [address] 14 May, 2009 [facility] [id number], [place] [address] May, [facility] [id number], [place] [address] May, [facility] [id number], [place] [address] May, [facility] [id number], [place] [address] Apr, [facility] [id number] [place] [address] Apr, [facility] [id number], [place] [address] Apr, [facility] [id number], [place] [address] Apr, [facility] [id number], [place] [address] Mar, [facility] [id number], [place] [address] Mar, [facility] [id number], [place] [address] Mar, [facility] [address] [id number] [address] Jul, IMMUNIZATIONS No Known Immunizations SOCIAL HISTORY Never Assessed REASON FOR VISIT [facility] PLAN OF CARE VITAL SIGNS MEDICATIONS Unknown [...]
--- OUTSIDE RECORDS SUMMARY | 2018-11-07 12:48 | XMS REPORT ---
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 Feb, [facility] [place] [facility] [address] [facility]] [id number] [place] [address] Feb, [facility] [place] [facility] [address] [id number] [place] [address] 20 Feb, 2011 [facility] [place] [facility] [address] [id number] [place] [address] 19 Feb, 2011 [facility] [place] [facility] [address] [id number] [place] [address] 10 Feb, 2011 [facility] [place] [facility] [address] [id number] [place] [address] 08 Feb, 2011 [facility] [place] [facility] [address] [id number] [place] [address] 06 Feb, 2011 [facility] [place] [facility] [address] [id number] [place] [address] 06 Feb, 2011 [facility] [place] [facility] [address] [id number] [place] [address] 21 Jan, 2012 [facility] [place] [facility] [address] [id number] [place] [address] 15 Jan, 2012 [facility] [place] [facility] [address] [id number] [place] [address] 10 Jan, 2012 [facility] [place] [facility] [address] [id number] [place] [address] 09 Jan, 2012 [facility] [place] [facility] [address] [id number] [place] [address] 17 Dec, 2011 [facility] [place] [facility] [address] [id number] [place] [address] 12 Dec, 2011 [facility] [place] [facility] [address] [id number] [place] [address] 18 Nov, 2011 [facility] [place] [facility] [address] [id number] [place] [address] 14 Nov, 2011 [facility] [place] [facility] [address] [id number] [place] [address] 12 Nov, 2011 [facility] [place] [facility] [address] [id number] [place] [address] 30 Oct, 2011 [facility] [place] [facility] [address] [id number] [place] [address] October, [facility] [place] [facility] [address] [id number] [place] [address] October, [facility] [place] [facility] [address] [id number] [place] [address] Sep, [facility] [place] [facility] [address] [id number] [place] [address] Sep, [facility] [place] [facility] [address] [id number] [place] [address] Sep, [facility] [place] [facility] [address] [id number] [place] [address] 30 Aug, 2011 [facility] [place] [facility] [address] [id number] [place] [address] Aug, [facility] [place] [facility] [address] [id number] [place] [address] Aug, [facility] [place] [facility] [address] [id number] [place] [address] Aug, [facility] [place] [facility] [address] [id number] [place] [address] Aug, [facility] [place] [facility] [address] [id number] [place] [address] Aug, [facility] [place] [facility] [address] [id number] [place] [address] Aug, [facility] [place] [facility] [address] [id number] [place] [address] Aug, [facility] [place] [facility] [address] [id number] [place] [address] Aug, [facility] [place] [facility] [address] [id number] [place] [address] Aug, [facility] [place] [facility] [address] [id number] [place] [address] Jul, [facility] [place] [facility] [address] [id number] [place] [address] Jul, [facility] [place] [facility] [address] [id number] [place] [address] Jul, [facility] [place] [facility] [address] [id number] [place] [address] Jul, [facility] [place] [facility] [address] [id number] [place] [address] Jul, [facility] [place] [facility] [address] [id number] [place] [address] Jun, [facility] [place] [facility] [address] [facility]] [id number] [place] [address] Jun, [facility] [place] [facility] [address] [facility]] [id number] [place] [address] Jun, [facility] [place] [facility] [address] [id number] [place] [address] May, [facility] [place] [facility] [address] [facility]] [id number] [place] [address] Apr, [facility] [place] [facility] [address] [facility]] [id number] [place] [address] Apr, [facility] [place] [facility] [address] [facility]] [id number] [place] [address] Apr, [facility] [place] [facility] [address] [id number] [place] [address] Apr, [facility] [place] [facility] [address] [facility]] [id number] [place] [address] Apr, [facility] [place] [facility] [address] [facility]] [id number] [place] [address] Mar, [facility] [place] [facility] [address] [facility]] [id number] [place] [address] 14 Mar, 2011 [facility] [place] [facility] [address] [id number] [place] [address] 11 Mar, 2011 [facility] [place] [facility] [address] [id number] [place] [address] 11 Mar, 2011 [facility] [place] [facility] [address] [id number] [place] [address] 11 Mar, 2011 [facility] [place] [facility] [address] [id number] [place] [address] 11 Mar, 2011 [facility] [place] [facility] [address] [id number] [place] [address] 14 May, 2010 [facility] [place] [facility] [address] [id number] [place] [address] 30 Apr, 2010 [facility] [place] [facility] [address] [id number] [place] [address] 17 Apr, 2010 [facility] [place] [facility] [address] [id number] [place] [address] 17 Apr, 2010 [facility] [place] [facility] [address] [id number] [place] [address] 15 Apr, 2010 [facility] [place] [facility] [address] [id number] [place] [address] 08 Apr, 2010 [facility] [place] [facility] [address] [id number], [place] [address] 20 Mar, 2010 [facility] [place] [facility] [address] [id number], [place] [address] 13 Mar, 2010 [facility] [place] [facility] [address] [id number] [place] [address] 29 May, 2009 [facility] [place] [facility] [address] [id number] [place] [address] 28 May, 2009 [facility] [place] [facility] [address] [id number] [place] [address] 21 May, 2009 [facility] [place] [facility] [id number], [place] [address] 14 May, 2009 [facility] [id number], [place] [address] May, [facility] [id number], [place] [address] May, [facility] [id number], [place] [address] May, [facility] [id number], [place] [address] Apr, [facility] [id number] [place] [address] Apr, [facility] [id number], [place] [address] Apr, [facility] [id number], [place] [address] Apr, [facility] [id number], [place] [address] Mar, [facility] [id number], [place] [address] Mar, [facility] [id number], [place] [address] Mar, [facility] [id number] [address] Jul, IMMUNIZATIONS No Known Immunizations SOCIAL HISTORY Never Assessed REASON FOR [place] [facility] [place] VITAL SIGNS MEDICATIONS Unknown [...]
--- OUTSIDE RECORDS SUMMARY | 2018-11-07 12:49 | XMS REPORT ---
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 [facility] [address] [id number] [place] [address] 10 Jan, 2012 [facility] [address] [id number] [place] [address] 09 Jan, 2012 [facility] [address] [id number] [place] [address] 17 Dec, 2011 [facility] [address] [id number] [place] [address] 12 Dec, 2011 [facility] [address] [id number] [place] [address] 18 Nov, 2011 [facility] [address] [id number] [place] [address] 14 Nov, 2011 [facility] [address] [id number] [place] [address] 12 Nov, 2011 [facility] [address] [id number] [place] [address] 30 Oct, 2011 [facility] [address] [id number] [place] [address] October, [facility] [address] [id number] [place] [address] October, [facility] [address] [id number] [place] [address] Sep, [facility] [address] [id number] [place] [address] Sep, [facility] [facility] [address] [id number] [place] [address] Sep, [facility] [address] [id number] [place] [address] 30 Aug, 2011 [facility] [address] [id number] [place] [address] Aug, [facility] [address] [id number] [place] [address] Aug, [facility] [address] [id number] [place] [address] Aug, [facility] [address] [id number] [place] [address] Aug, [facility] [address] [id number] [place] [address] Aug, [facility] [address] [id number] [place] [address] Aug, [facility] [address] [id number] [place] [address] Aug, [facility] [address] [id number] [place] [address] Aug, [facility] [address] [id number] [place] [address] Aug, [facility] [address] [id number] [place] [address] Jul, [facility] [address] [id number] [place] [address] Jul, [facility] [address] [id number] [place] [address] Jul, [facility] [address] [id number] [place] [address] Jul, [facility] [facility] [address] [id number] [place] [address] Jul, [facility] [address] [id number] [place] [address] Jun, [facility] [facility] [address] [facility] [id number] [place] [address] Jun, [facility] [address] [facility] [id number] [place] [address] Jun, [facility] [address] [id number] [place] [address] May, [facility] [address] [facility] [id number] [place] [address] Apr, [facility] [address] [facility] [id number] [place] [address] Apr, [facility] [address] [facility] [id number] [place] [address] Apr, [facility] [facility] [address] [id number] [place] [address] Apr, [facility] [address] [facility] [id number] [place] [address] Apr, [facility] [facility] [address] [facility] [id number] [place] [address] Mar, [facility] [address] [facility] [id number] [place] [address] 14 Mar, 2011 [facility] [facility] [address] [id number] [place] [address] 11 Mar, 2011 [facility] [place] [facility] [address] [id number] [place] [address] 11 Mar, 2011 [facility] [place] [facility] [address] [id number] [place] [address] 11 Mar, 2011 [facility] [place] [facility] [address] [id number] [place] [address] 11 Mar, 2011 [facility] [place] [facility] [address] [id number] [place] [address] 14 May, 2010 [facility] [place] [address] [id number] [place] [address] 30 Apr, 2010 [facility] [place] [facility] [address] [id number] [place] [address] 17 Apr, 2010 [facility] [place] [facility] [address] [id number] [place] [address] 17 Apr, 2010 [facility] [place] [facility] [address] [id number] [place] [address] 15 Apr, 2010 [facility] [place] [facility] [address] [id number] [place] [address] 08 Apr, 2010 [facility] [place] [facility] [address] [id number], [place] [address] 20 Mar, 2010 [facility] [address] [id number], [place] [address] 13 Mar, 2010 [facility] [place] [facility] [address] [id number] [place] [address] 29 May, 2009 [facility] [place] [facility] [address] [id number] [place] [address] 28 May, 2009 [facility] [place] [facility] [address] [id number] [place] [address] 21 May, 2009 [facility] [facility] [id number] [address] 14 May, 2009 [facility] [id number], [place] [address] May, [facility] [id number], [place] [address] May, [facility] [id number], [place] [address] May, [facility] [id number], [place] [address] Apr, [facility] [id number] [place] [address] Apr, [facility] [id number], [place] [address] Apr, [facility] [id number], [place] [address] Apr, [facility] [id number], [place] [address] Mar, [facility] [id number], [place] [address] Mar, [facility] [id number], [place] [address] Mar, [facility] [address] [id number] [address] Jul, IMMUNIZATIONS No Known Immunizations SOCIAL HISTORY Never Assessed REASON FOR VISIT [facility] PLAN OF CARE VITAL SIGNS MEDICATIONS Unknown [...]
--- OUTSIDE RECORDS SUMMARY | 2018-11-07 12:50 | XMS REPORT ---
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 [facility] [address] [id number] [place] [address] 10 Feb, 2011 [facility] [place] [facility] [address] [id number] [place] [address] 08 Feb, 2011 [facility] [place] [facility] [address] [id number] [place] [address] 06 Feb, 2011 [facility] [place] [facility] [address] [id number] [place] [address] 06 Feb, 2011 [facility] [place] [facility] [address] [id number] [place] [address] 21 Jan, 2012 [facility] [place] [facility] [address] [id number] [place] [address] 15 Jan, 2012 [facility] [place] [facility] [address] [id number] [place] [address] 10 Jan, 2012 [facility] [place] [facility] [address] [id number] [place] [address] 09 Jan, 2012 [facility] [place] [facility] [address] [id number] [place] [address] 17 Dec, 2011 [facility] [place] [facility] [address] [id number] [place] [address] 12 Dec, 2011 [facility] [place] [facility] [address] [id number] [place] [address] 18 Nov, 2011 [facility] [place] [facility] [address] [id number] [place] [address] 14 Nov, 2011 [facility] [place] [facility] [address] [id number] [place] [address] 12 Nov, 2011 [facility] [place] [facility] [address] [id number] [place] [address] 30 Oct, 2011 [facility] [place] [facility] [address] [id number] [place] [address] October, [facility] [place] [facility] [address] [id number] [place] [address] October, [facility] [place] [facility] [address] [id number] [place] [address] Sep, [facility] [place] [facility] [address] [id number] [place] [address] Sep, [facility] [place] [facility] [address] [id number] [place] [address] Sep, [facility] [place] [facility] [address] [id number] [place] [address] 30 Aug, 2011 [facility] [place] [facility] [address] [id number] [place] [address] Aug, [facility] [place] [facility] [address] [id number] [place] [address] Aug, [facility] [place] [facility] [address] [id number] [place] [address] Aug, [facility] [place] [facility] [address] [id number] [place] [address] Aug, [facility] [place] [facility] [address] [id number] [place] [address] Aug, [facility] [place] [facility] [address] [id number] [place] [address] Aug, [facility] [place] [facility] [address] [id number] [place] [address] Aug, [facility] [place] [facility] [address] [id number] [place] [address] Aug, [facility] [place] [facility] [address] [id number] [place] [address] Aug, [facility] [place] [facility] [address] [id number] [place] [address] Jul, [facility] [place] [facility] [address] [id number] [place] [address] Jul, [facility] [place] [facility] [address] [id number] [place] [address] Jul, [facility] [place] [facility] [address] [id number] [place] [address] Jul, [facility] [place] [facility] [address] [id number] [place] [address] Jul, [facility] [place] [facility] [address] [id number] [place] [address] Jun, [facility] [place] [facility] [address] [facility] [id number] [place] [address] Jun, [facility] [place] [facility] [address] [facility] [id number] [place] [address] Jun, [facility] [place] [facility] [address] [id number] [place] [address] May, [facility] [place] [facility] [address] [facility] [id number] [place] [address] Apr, [facility] [place] [facility] [address] [facility] [id number] [place] [address] Apr, [facility] [place] [facility] [address] [facility] [id number] [place] [address] Apr, [facility] [place] [facility] [address] [id number] [place] [address] Apr, [facility] [place] [facility] [address] [facility] [id number] [place] [address] Apr, [facility] [place] [facility] [address] [facility] [id number] [place] [address] Mar, [facility] [place] [facility] [address] [facility] [id number] [place] [address] 14 Mar, 2011 [facility] [place] [facility] [address] [id number] [place] [address] 11 Mar, 2011 [facility] [place] [facility] [address] [id number] [place] [address] 11 Mar, 2011 [facility] [place] [facility] [address] [id number] [place] [address] 11 Mar, 2011 [facility] [place] [facility] [address] [id number] [place] [address] 11 Mar, 2011 [facility] [place] [facility] [address] [id number] [place] [address] 14 May, 2010 [facility] [place] [facility] [address] [id number] [place] [address] 30 Apr, 2010 [facility] [place] [facility] [address] [id number] [place] [address] 17 Apr, 2010 [facility] [place] [facility] [address] [id number] [place] [address] 17 Apr, 2010 [facility] [place] [facility] [address] [id number] [place] [address] 15 Apr, 2010 [facility] [place] [facility] [address] [id number] [place] [address] 08 Apr, 2010 [facility] [place] [facility] [address] [id number] [place] [address] 20 Mar, 2010 [facility] [place] [facility] [address] [id number] [place] [address] 13 Mar, 2010 [facility] [place] [facility] [address] [id number] [place] [address] 29 May, 2009 [facility] [place] [facility] [address] [id number] [place] [address] 28 May, 2009 [facility] [place] [facility] [address] [id number] [place] [address] 21 May, 2009 [facility] [place] [facility] [id number] [place] [address] 14 May, 2009 [facility] [id number] [address] May, [facility] [id number] [address] May, [facility] [id number] [address] May, [facility] [id number] [address] Apr, [facility] [id number] [place] [address] Apr, [facility] [id number] [place] [address] Apr, [facility] [id number] [address] Apr, [facility] [id number] [address] Mar, [facility] [id number] [address] Mar, [facility] [id number] [address] Mar, [facility] [id number] [address] Jul, IMMUNIZATIONS No Known Immunizations SOCIAL HISTORY Never Assessed REASON FOR VISIT [facility] [place] PLAN OF CARE [...]
--- OUTSIDE RECORDS SUMMARY | 2018-11-07 12:50 | XMS REPORT ---
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 [place] [address] 20 Feb, 2011 [facility] [place] [facility] [address] [id number] [place] [address] 19 Feb, 2011 [facility] [place] [facility] [address] [id number] [place] [address] 10 Feb, 2011 [facility] [place] [facility] [address] [id number] [place] [address] 08 Feb, 2011 [facility] [place] [facility] [address] [id number] [place] [address] 06 Feb, 2011 [facility] [place] [facility] [address] [id number] [place] [address] 06 Feb, 2011 [facility] [place] [facility] [address] [id number] [place] [address] 21 Jan, 2012 [facility] [place] [facility] [address] [id number] [place] [address] 15 Jan, 2012 [facility] [place] [facility] [address] [id number] [place] [address] 10 Jan, 2012 [facility] [place] [facility] [address] [id number] [place] [address] 09 Jan, 2012 [facility] [place] [facility] [address] [id number] [place] [address] 17 Dec, 2011 [facility] [place] [facility] [address] [id number] [place] [address] 12 Dec, 2011 [facility] [place] [facility] [address] [id number] [place] [address] 18 Nov, 2011 [facility] [place] [facility] [address] [id number] [place] [address] 14 Nov, 2011 [facility] [place] [facility] [address] [id number] [place] [address] 12 Nov, 2011 [facility] [place] [facility] [address] [id number] [place] [address] 30 Oct, 2011 [facility] [place] [facility] [address] [id number] [place] [address] October, [facility] [place] [facility] [address] [id number] [place] [address] October, [facility] [place] [facility] [address] [id number] [place] [address] Sep, [facility] [place] [facility] [address] [id number] [place] [address] Sep, [facility] [place] [facility] [address] [id number] [place] [address] Sep, [facility] [place] [facility] [address] [id number] [place] [address] 30 Aug, 2011 [facility] [place] [facility] [address] [id number] [place] [address] Aug, [facility] [place] [facility] [address] [id number] [place] [address] Aug, [facility] [place] [facility] [address] [id number] [place] [address] Aug, [facility] [place] [facility] [address] [id number] [place] [address] Aug, [facility] [place] [facility] [address] [id number] [place] [address] Aug, [facility] [place] [facility] [address] [id number] [place] [address] Aug, [facility] [place] [facility] [address] [id number] [place] [address] Aug, [facility] [place] [facility] [address] [id number] [place] [address] Aug, [facility] [place] [facility] [address] [id number] [place] [address] Aug, [facility] [place] [facility] [address] [id number] [place] [address] Jul, [facility] [place] [facility] [address] [id number] [place] [address] Jul, [facility] [place] [facility] [address] [id number] [place] [address] Jul, [facility] [place] [facility] [address] [id number] [place] [address] Jul, [facility] [place] [facility] [address] [id number] [place] [address] Jul, [facility] [place] [facility] [address] [id number] [place] [address] Jun, [facility] [place] [facility] [address] [facility] [id number] [place] [address] Jun, [facility] [place] [facility] [address] [facility] [id number] [place] [address] Jun, [facility] [place] [facility] [address] [id number] [place] [address] May, [facility] [place] [facility] [address] [facility] [id number] [place] [address] Apr, [facility] [place] [facility] [address] [facility] [id number] [place] [address] Apr, [facility] [place] [facility] [address] [facility] [id number] [place] [address] Apr, [facility] [place] [facility] [address] [id number] [place] [address] Apr, [facility] [place] [facility] [address] [facility] [id number] [place] [address] Apr, [facility] [place] [facility] [address] [facility] [id number] [place] [address] Mar, [facility] [place] [facility] [address] [facility] [id number] [place] [address] 14 Mar, 2011 [facility] [place] [facility] [address] [id number] [place] [address] 11 Mar, 2011 [facility] [place] [facility] [address] [id number] [place] [address] 11 Mar, 2011 [facility] [place] [facility] [address] [id number] [place] [address] 11 Mar, 2011 [facility] [place] [facility] [address] [id number] [place] [address] 11 Mar, 2011 [facility] [place] [facility] [address] [id number] [place] [address] 14 May, 2010 [facility] [place] [facility] [address] [id number] [place] [address] 30 Apr, 2010 [facility] [place] [facility] [address] [id number] [place] [address] 17 Apr, 2010 [facility] [place] [facility] [address] [id number] [place] [address] 17 Apr, 2010 [facility] [place] [facility] [address] [id number] [place] [address] 15 Apr, 2010 [facility] [place] [facility] [address] [id number] [place] [address] 08 Apr, 2010 [facility] [place] [facility] [address] [id number], [place] [address] 20 Mar, 2010 [facility] [place] [facility] [address] [id number], [place] [address] 13 Mar, 2010 [facility] [place] [facility] [address] [id number] [place] [address] 29 May, 2009 [facility] [place] [facility] [address] [id number] [place] [address] 28 May, 2009 [facility] [place] [facility] [address] [id number] [place] [address] 21 May, 2009 [facility] [place] [facility] [id number], [place] [address] 14 May, 2009 [facility] [id number], [place] [address] May, [facility] [id number], [place] [address] May, [facility] [id number], [place] [address] May, [facility] [id number], [place] [address] Apr, [facility] [id number] [place] [address] Apr, [facility] [id number], [place] [address] Apr, [facility] [id number], [place] [address] Apr, [facility] [id number], [place] [address] Mar, [facility] [id number], [place] [address] Mar, [facility] [id number], [place] [address] Mar, [facility] [address] [id number], [place] [address] Jul, IMMUNIZATIONS No Known Immunizations SOCIAL HISTORY Never Assessed REASON FOR VISIT [facility] [place] PLAN OF CARE VITAL [...]
--- OUTSIDE RECORDS SUMMARY | 2018-11-07 12:51 | XMS REPORT ---
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 [id number] [place] [address] 06 Feb, 2011 [facility] [address] [id number] [place] [address] 21 Jan, 2012 [facility] [address] [id number] [place] [address] 15 Jan, 2012 [facility] [address] [id number] [place] [address] 10 Jan, 2012 [facility] [address] [id number] [place] [address] 09 Jan, 2012 [facility] [address] [id number] [place] [address] 17 Dec, 2011 [facility] [address] [id number] [place] [address] 12 Dec, 2011 [facility] [place] [address] [id number] [place] [address] 18 Nov, 2011 [facility] [address] [id number] [place] [address] 14 Nov, 2011 [facility] [address] [id number] [place] [address] 12 Nov, 2011 [facility] [address] [id number] [place] [address] 30 Oct, 2011 [facility] [address] [id number] [place] [address] October, [facility] [address] [id number] [place] [address] October, [facility] [place] [facility] [address] [id number] [place] [address] Sep, [facility] [place] [facility] [address] [id number] [place] [address] Sep, [facility] [facility] [address] [id number] [place] [address] Sep, [facility] [place] [facility] [address] [id number] [place] [address] 30 Aug, 2011 [facility] [place] [facility] [address] [id number] [place] [address] Aug, [facility] [place] [address] [id number] [place] [address] Aug, [facility] [place] [facility] [address] [id number] [place] [address] Aug, [facility] [place] [facility] [address] [id number] [place] [address] Aug, [facility] [place] [facility] [address] [id number] [place] [address] Aug, [facility] [place] [address] [id number] [place] [address] Aug, [facility] [place] [facility] [address] [id number] [place] [address] Aug, [facility] [place] [facility] [address] [id number] [place] [address] Aug, [facility] [place] [address] [id number] [place] [address] Aug, [facility] [place] [facility] [address] [id number] [place] [address] Jul, [facility] [address] [id number] [place] [address] Jul, [facility] [address] [id number] [place] [address] Jul, [facility] [address] [id number] [place] [address] Jul, [facility] [place] [address] [id number] [place] [address] Jul, [facility] [place] [address] [id number] [place] [address] Jun, [facility] [place] [facility] [address] [facility] [id number] [place] [address] Jun, [facility] [address] [facility] [id number] [place] [address] Jun, [facility] [place] [facility] [address] [id number] [place] [address] May, [facility] [facility] [address] [facility] [id number] [place] [address] Apr, [facility] [address] [facility] [id number] [place] [address] Apr, [facility] [address] [facility] [id number] [place] [address] Apr, [facility] [address] [id number] [place] [address] Apr, [facility] [address] [facility] [id number] [place] [address] Apr, [facility] [address] [facility] [id number] [place] [address] Mar, [facility] [address] [facility] [id number] [place] [address] 14 Mar, 2011 [facility] [place] [facility] [address] [id number] [place] [address] 11 Mar, 2011 [facility] [place] [facility] [address] [id number] [place] [address] 11 Mar, 2011 [facility] [place] [facility] [address] [id number] [place] [address] 11 Mar, 2011 [facility] [place] [facility] [address] [id number] [place] [address] 11 Mar, 2011 [facility] [place] [facility] [address] [id number] [place] [address] 14 May, 2010 [facility] [place] [facility] [address] [id number] [place] [address] 30 Apr, 2010 [facility] [place] [facility] [address] [id number] [place] [address] 17 Apr, 2010 [facility] [place] [facility] [address] [id number] [place] [address] 17 Apr, 2010 [facility] [place] [facility] [address] [id number] [place] [address] 15 Apr, 2010 [facility] [place] [facility] [address] [id number] [place] [address] 08 Apr, 2010 [facility] [place] [facility] [address] [id number], [place] [address] 20 Mar, 2010 [facility] [place] [facility] [address] [id number], [place] [address] 13 Mar, 2010 [facility] [place] [facility] [address] [id number] [place] [address] 29 May, 2009 [facility] [place] [facility] [address] [id number] [place] [address] 28 May, 2009 [facility] [place] [facility] [address] [id number] [place] [address] 21 May, 2009 [facility] [place] [facility] [address], [place] [address] 14 May, 2009 [facility] [address], [place] [address] May, [facility] [address], [place] [address] May, [facility] [id number], [place] [address] May, [facility] [id number], [place] [address] Apr, [facility] [id number] [place] [address] Apr, [facility] [id number], [place] [address] Apr, [facility] [address], [place] [address] Apr, [facility] [address], [place] [address] Mar, [facility] [address], [place] [address] Mar, [facility] [address], [place] [address] Mar, [facility] [address] [id number] [address] Jul, IMMUNIZATIONS No Known Immunizations SOCIAL HISTORY Never Assessed REASON FOR VISIT [facility] PLAN OF CARE VITAL SIGNS MEDICATIONS Unknown [...]
--- OUTSIDE RECORDS SUMMARY | 2018-11-07 12:52 | XMS REPORT ---
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 10 Jan, 2012 [facility] [address] [id number] [place] [address] 09 Jan, 2012 [facility] [address] [id number] [place] [address] 17 Dec, 2011 [facility] [address] [id number] [place] [address] 12 Dec, 2011 [facility] [address] [id number] [place] [address] 18 Nov, 2011 [facility] [address] [id number] [place] [address] 14 Nov, 2011 [facility] [address] [id number] [place] [address] 12 Nov, 2011 [facility] [address] [id number] [place] [address] 30 Oct, 2011 [facility] [address] [id number] [place] [address] October, [facility] [address] [id number] [place] [address] October, [facility] [address] [id number] [place] [address] Sep, [facility] [address] [id number] [place] [address] Sep, [facility] [address] [id number] [place] [address] Sep, [facility] [address] [id number] [place] [address] 30 Aug, 2011 [facility] [address] [id number] [place] [address] Aug, [facility] [address] [id number] [place] [address] Aug, [facility] [address] [id number] [place] [address] Aug, [facility] [address] [id number] [place] [address] Aug, [facility] [address] [id number] [place] [address] Aug, [facility] [address] [id number] [place] [address] Aug, [facility] [address] [id number] [place] [address] Aug, [facility] [address] [id number] [place] [address] Aug, [facility] [address] [id number] [place] [address] Aug, [facility] [address] [id number] [place] [address] Jul, [facility] [address] [id number] [place] [address] Jul, [facility] [address] [id number] [place] [address] Jul, [facility] [address] [id number] [place] [address] Jul, [facility] [address] [id number] [place] [address] Jul, [facility] [address] [id number] [place] [address] Jun, [facility] [address] [facility] [id number] [place] [address] Jun, [facility] [address] [facility] [id number] [place] [address] Jun, [facility] [address] [id number] [place] [address] May, [facility] [address] [facility] [id number] [place] [address] Apr, [facility] [address] [facility] [id number] [place] [address] Apr, [facility] [address] [facility] [id number] [place] [address] Apr, [facility] [address] [id number] [place] [address] Apr, [facility] [address] [facility] [id number] [place] [address] Apr, [facility] [address] [facility] [id number] [place] [address] Mar, [facility] [address] [facility] [id number] [place] [address] 14 Mar, 2011 [facility] [address] [id number] [place] [address] 11 Mar, 2011 [facility] [address] [id number] [place] [address] 11 Mar, 2011 [facility] [address] [id number] [place] [address] 11 Mar, 2011 [facility] [address] [id number] [place] [address] 11 Mar, 2011 [facility] [address] [id number] [place] [address] 14 May, 2010 [facility] [address] [id number] [place] [address] 30 Apr, 2010 [facility] [address] [id number] [place] [address] 17 Apr, 2010 [facility] [address] [id number] [place] [address] 17 Apr, 2010 [facility] [place] [facility] [address] [id number] [place] [address] 15 Apr, 2010 [facility] [address] [id number] [place] [address] 08 Apr, 2010 [facility] [address] [id number] [address] 20 Mar, 2010 [facility] [address] [id number], [place] [address] 13 Mar, 2010 [facility] [address] [id number] [place] [address] 29 May, 2009 [facility] [address] [id number] [place] [address] 28 May, 2009 [facility] [place] [facility] [address] [id number] [place] [address] 21 May, 2009 [facility] [id number] [address] 14 May, 2009 [facility] [id number], [place] [address] May, [facility] [id number], [place] [address] May, [facility] [id number], [place] [address] May, [facility] [id number], [place] [address] Apr, [facility] [id number] [place] [address] Apr, [facility] [id number], [place] [address] Apr, [facility] [id number], [place] [address] Apr, [facility] [id number] [address] Mar, [facility] [id number] [address] Mar, [facility] [id number] [address] Mar, [facility] [address] [id number] [address] Jul, IMMUNIZATIONS No Known Immunizations SOCIAL HISTORY Never Assessed REASON FOR VISIT [facility] [place] PLAN OF CARE VITAL SIGNS MEDICATIONS Unknown [...]
--- OUTSIDE RECORDS SUMMARY | 2018-11-07 12:52 | XMS REPORT ---
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 [facility] [address] [id number] [place] [address] 20 Feb, 2011 [facility] [place] [facility] [address] [id number] [place] [address] 19 Feb, 2011 [facility] [place] [facility] [address] [id number] [place] [address] 10 Feb, 2011 [facility] [place] [facility] [address] [id number] [place] [address] 08 Feb, 2011 [facility] [place] [facility] [address] [id number] [place] [address] 06 Feb, 2011 [facility] [place] [facility] [address] [id number] [place] [address] 06 Feb, 2011 [facility] [place] [facility] [address] [id number] [place] [address] 21 Jan, 2012 [facility] [place] [facility] [address] [id number] [place] [address] 15 Jan, 2012 [facility] [place] [facility] [address] [id number] [place] [address] 10 Jan, 2012 [facility] [place] [facility] [address] [id number] [place] [address] 09 Jan, 2012 [facility] [place] [facility] [address] [id number] [place] [address] 17 Dec, 2011 [facility] [place] [facility] [address] [id number] [place] [address] 12 Dec, 2011 [facility] [place] [facility] [address] [id number] [place] [address] 18 Nov, 2011 [facility] [place] [facility] [address] [id number] [place] [address] 14 Nov, 2011 [facility] [place] [facility] [address] [id number] [place] [address] 12 Nov, 2011 [facility] [place] [facility] [address] [id number] [place] [address] 30 Oct, 2011 [facility] [place] [facility] [address] [id number] [place] [address] October, [facility] [place] [facility] [address] [id number] [place] [address] October, [facility] [place] [facility] [address] [id number] [place] [address] Sep, [facility] [place] [facility] [address] [id number] [place] [address] Sep, [facility] [place] [facility] [address] [id number] [place] [address] Sep, [facility] [place] [facility] [address] [id number] [place] [address] 30 Aug, 2011 [facility] [place] [facility] [address] [id number] [place] [address] Aug, [facility] [place] [facility] [address] [id number] [place] [address] Aug, [facility] [place] [facility] [address] [id number] [place] [address] Aug, [facility] [place] [facility] [address] [id number] [place] [address] Aug, [facility] [place] [facility] [address] [id number] [place] [address] Aug, [facility] [place] [facility] [address] [id number] [place] [address] Aug, [facility] [place] [facility] [address] [id number] [place] [address] Aug, [facility] [place] [facility] [address] [id number] [place] [address] Aug, [facility] [place] [facility] [address] [id number] [place] [address] Aug, [facility] [place] [facility] [address] [id number] [place] [address] Jul, [facility] [place] [facility] [address] [id number] [place] [address] Jul, [facility] [place] [facility] [address] [id number] [place] [address] Jul, [facility] [place] [facility] [address] [id number] [place] [address] Jul, [facility] [place] [facility] [address] [id number] [place] [address] Jul, [facility] [place] [facility] [address] [id number] [place] [address] Jun, [facility] [place] [facility] [address] [facility] [id number] [place] [address] Jun, [facility] [place] [facility] [address] [facility] [id number] [place] [address] Jun, [facility] [place] [facility] [address] [id number] [place] [address] May, [facility] [place] [facility] [address] [facility] [id number] [place] [address] Apr, [facility] [place] [facility] [address] [facility] [id number] [place] [address] Apr, [facility] [place] [facility] [address] [facility] [id number] [place] [address] Apr, [facility] [place] [facility] [address] [id number] [place] [address] Apr, [facility] [place] [facility] [address] [facility] [id number] [place] [address] Apr, [facility] [place] [facility] [address] [facility] [id number] [place] [address] Mar, [facility] [place] [facility] [address] [facility] [id number] [place] [address] 14 Mar, 2011 [facility] [place] [facility] [address] [id number] [place] [address] 11 Mar, 2011 [facility] [place] [facility] [address] [id number] [place] [address] 11 Mar, 2011 [facility] [place] [facility] [address] [id number] [place] [address] 11 Mar, 2011 [facility] [place] [facility] [address] [id number] [place] [address] 11 Mar, 2011 [facility] [place] [facility] [address] [id number] [place] [address] 14 May, 2010 [facility] [place] [facility] [address] [id number] [place] [address] 30 Apr, 2010 [facility] [place] [facility] [address] [id number] [place] [address] 17 Apr, 2010 [facility] [place] [facility] [address] [id number] [place] [address] 17 Apr, 2010 [facility] [place] [facility] [address] [id number] [place] [address] 15 Apr, 2010 [facility] [place] [facility] [address] [id number] [place] [address] 08 Apr, 2010 [facility] [place] [facility] [address] [id number], [place] [address] 20 Mar, 2010 [facility] [place] [facility] [address] [id number], [place] [address] 13 Mar, 2010 [facility] [place] [facility] [address] [id number] [place] [address] 29 May, 2009 [facility] [place] [facility] [address] [id number] [place] [address] 28 May, 2009 [facility] [place] [facility] [address] [id number] [place] [address] 21 May, 2009 [facility] [place] [facility] [id number], [place] [address] 14 May, 2009 [facility] [id number] [address] May, [facility] [id number] [address] May, [facility] [id number] [address] May, [facility] [id number] [address] Apr, [facility] [id number] [place] [address] Apr, [facility] [id number] [address] Apr, [facility] [id number] [address] Apr, [facility] [id number] [address] Mar, [facility] [id number] [address] Mar, [facility] [id number], [place] [address] Mar, [facility] [address] [id number] [address] Jul, IMMUNIZATIONS No Known Immunizations SOCIAL HISTORY Never Assessed REASON FOR VISIT [facility] [place] PLAN OF CARE VITAL SIGNS [...]
--- OUTSIDE RECORDS SUMMARY | 2018-11-07 12:53 | XMS REPORT ---
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 [address] 10 Feb, 2011 [facility] [place] [facility] [address] [id number] [place] [address] 08 Feb, 2011 [facility] [place] [facility] [address] [id number] [place] [address] 06 Feb, 2011 [facility] [place] [facility] [address] [id number] [place] [address] 06 Feb, 2011 [facility] [place] [facility] [address] [id number] [place] [address] 21 Jan, 2012 [facility] [place] [facility] [address] [id number] [place] [address] 15 Jan, 2012 [facility] [place] [facility] [address] [id number] [place] [address] 10 Jan, 2012 [facility] [place] [facility] [address] [id number] [place] [address] 09 Jan, 2012 [facility] [place] [facility] [address] [id number] [place] [address] 17 Dec, 2011 [facility] [place] [facility] [address] [id number] [place] [address] 12 Dec, 2011 [facility] [place] [facility] [address] [id number] [place] [address] 18 Nov, 2011 [facility] [place] [facility] [address] [id number] [place] [address] 14 Nov, 2011 [facility] [place] [facility] [address] [id number] [place] [address] 12 Nov, 2011 [facility] [place] [facility] [address] [id number] [place] [address] 30 Oct, 2011 [facility] [place] [facility] [address] [id number] [place] [address] October, [facility] [place] [facility] [address] [id number] [place] [address] October, [facility] [place] [facility] [address] [id number] [place] [address] Sep, [facility] [place] [facility] [address] [id number] [place] [address] Sep, [facility] [place] [facility] [address] [id number] [place] [address] Sep, [facility] [place] [facility] [address] [id number] [place] [address] 30 Aug, 2011 [facility] [place] [facility] [address] [id number] [place] [address] Aug, [facility] [place] [facility] [address] [id number] [place] [address] Aug, [facility] [place] [facility] [address] [id number] [place] [address] Aug, [facility] [place] [facility] [address] [id number] [place] [address] Aug, [facility] [place] [facility] [address] [id number] [place] [address] Aug, [facility] [place] [facility] [address] [id number] [place] [address] Aug, [facility] [place] [facility] [address] [id number] [place] [address] Aug, [facility] [place] [facility] [address] [id number] [place] [address] Aug, [facility] [place] [facility] [address] [id number] [place] [address] Aug, [facility] [place] [facility] [address] [id number] [place] [address] Jul, [facility] [place] [facility] [address] [id number] [place] [address] Jul, [facility] [place] [facility] [address] [id number] [place] [address] Jul, [facility] [place] [facility] [address] [id number] [place] [address] Jul, [facility] [place] [facility] [address] [id number] [place] [address] Jul, [facility] [place] [facility] [address] [id number] [place] [address] Jun, [facility] [place] [facility] [address] [facility] [id number] [place] [address] Jun, [facility] [place] [facility] [address] [facility] [id number] [place] [address] Jun, [facility] [place] [facility] [address] [id number] [place] [address] May, [facility] [place] [facility] [address] [facility] [id number] [place] [address] Apr, [facility] [place] [facility] [address] [facility] [id number] [place] [address] Apr, [facility] [place] [facility] [address] [facility] [id number] [place] [address] Apr, [facility] [place] [facility] [address] [id number] [place] [address] Apr, [facility] [place] [facility] [address] [facility] [id number] [place] [address] Apr, [facility] [place] [facility] [address] [facility] [id number] [place] [address] Mar, [facility] [place] [facility] [address] [facility] [id number] [place] [address] 14 Mar, 2011 [facility] [place] [facility] [address] [id number] [place] [address] 11 Mar, 2011 [facility] [place] [facility] [address] [id number] [place] [address] 11 Mar, 2011 [facility] [place] [facility] [address] [id number] [place] [address] 11 Mar, 2011 [facility] [place] [facility] [address] [id number] [place] [address] 11 Mar, 2011 [facility] [place] [facility] [address] [id number] [place] [address] 14 May, 2010 [facility] [place] [facility] [address] [id number] [place] [address] 30 Apr, 2010 [facility] [place] [facility] [address] [id number] [place] [address] 17 Apr, 2010 [facility] [place] [facility] [address] [id number] [place] [address] 17 Apr, 2010 [facility] [place] [facility] [address] [id number] [place] [address] 15 Apr, 2010 [facility] [place] [facility] [address] [id number] [place] [address] 08 Apr, 2010 [facility] [place] [facility] [address] [id number], [place] [address] 20 Mar, 2010 [facility] [place] [facility] [address] [id number], [place] [address] 13 Mar, 2010 [facility] [place] [facility] [address] [id number] [place] [address] 29 May, 2009 [facility] [place] [facility] [address] [id number] [place] [address] 28 May, 2009 [facility] [place] [facility] [address] [id number] [place] [address] 21 May, 2009 [facility] [place] [facility] [id number], [place] [address] 14 May, 2009 [facility] [id number], [place] [address] May, [facility] [id number], [place] [address] May, [facility] [id number], [place] [address] May, [facility] [id number], [place] [address] Apr, [facility] [id number] [place] [address] Apr, [facility] [id number], [place] [address] Apr, [facility] [address], [place] [address] Apr, [facility] [id number], [place] [address] Mar, [facility] [address]65[address], [place] [address] Mar, [facility] [id number], [place] [address] Mar, [facility] [id number] [address] Jul, IMMUNIZATIONS No Known Immunizations SOCIAL HISTORY Never Assessed REASON FOR VISIT [facility] PLAN OF CARE [...]
--- OUTSIDE RECORDS SUMMARY | 2018-11-07 12:53 | XMS REPORT ---
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 Feb, 2011 [facility] [place] [facility] [address] [id number] [place] [address] 10 Feb, 2011 [facility] [place] [facility] [address] [id number] [place] [address] 08 Feb, 2011 [facility] [place] [facility] [address] [id number] [place] [address] 06 Feb, 2011 [facility] [place] [facility] [address] [id number] [place] [address] 06 Feb, 2011 [facility] [place] [facility] [address] [id number] [place] [address] 21 Jan, 2012 [facility] [place] [facility] [address] [id number] [place] [address] 15 Jan, 2012 [facility] [place] [facility] [address] [id number] [place] [address] 10 Jan, 2012 [facility] [place] [facility] [address] [id number] [place] [address] 09 Jan, 2012 [facility] [place] [facility] [address] [id number] [place] [address] 17 Dec, 2011 [facility] [place] [facility] [address] [id number] [place] [address] 12 Dec, 2011 [facility] [place] [facility] [address] [id number] [place] [address] 18 Nov, 2011 [facility] [place] [facility] [address] [id number] [place] [address] 14 Nov, 2011 [facility] [place] [facility] [address] [id number] [place] [address] 12 Nov, 2011 [facility] [place] [facility] [address] [id number] [place] [address] 30 Oct, 2011 [facility] [place] [facility] [address] [id number] [place] [address] October, [facility] [place] [facility] [address] [id number] [place] [address] October, [facility] [place] [facility] [address] [id number] [place] [address] Sep, [facility] [place] [facility] [address] [id number] [place] [address] Sep, [facility] [place] [facility] [address] [id number] [place] [address] Sep, [facility] [place] [facility] [address] [id number] [place] [address] 30 Aug, 2011 [facility] [place] [facility] [address] [id number] [place] [address] Aug, [facility] [place] [facility] [address] [id number] [place] [address] Aug, [facility] [place] [facility] [address] [id number] [place] [address] Aug, [facility] [place] [facility] [address] [id number] [place] [address] Aug, [facility] [place] [facility] [address] [id number] [place] [address] Aug, [facility] [place] [facility] [address] [id number] [place] [address] Aug, [facility] [place] [facility] [address] [id number] [place] [address] Aug, [facility] [place] [facility] [address] [id number] [place] [address] Aug, [facility] [place] [facility] [address] [id number] [place] [address] Aug, [facility] [place] [facility] [address] [id number] [place] [address] Jul, [facility] [place] [facility] [address] [id number] [place] [address] Jul, [facility] [place] [facility] [address] [id number] [place] [address] Jul, [facility] [place] [facility] [address] [id number] [place] [address] Jul, [facility] [place] [facility] [address] [id number] [place] [address] Jul, [facility] [place] [facility] [address] [id number] [place] [address] Jun, [facility] [place] [facility] [address] [facility] [id number] [place] [address] Jun, [facility] [place] [facility] [address] [facility] [id number] [place] [address] Jun, [facility] [place] [facility] [address] [id number] [place] [address] May, [facility] [place] [facility] [address] [facility] [id number] [place] [address] Apr, [facility] [place] [facility] [address] [facility] [id number] [place] [address] Apr, [facility] [place] [facility] [address] [facility] [id number] [place] [address] Apr, [facility] [place] [facility] [address] [id number] [place] [address] Apr, [facility] [place] [facility] [address] [facility] [id number] [place] [address] Apr, [facility] [place] [facility] [address] [facility] [id number] [place] [address] Mar, [facility] [place] [facility] [address] [facility] [id number] [place] [address] 14 Mar, 2011 [facility] [place] [facility] [address] [id number] [place] [address] 11 Mar, 2011 [facility] [place] [facility] [address] [id number] [place] [address] 11 Mar, 2011 [facility] [place] [facility] [address] [id number] [place] [address] 11 Mar, 2011 [facility] [place] [facility] [address] [id number] [place] [address] 11 Mar, 2011 [facility] [place] [facility] [address] [id number] [place] [address] 14 May, 2010 [facility] [place] [facility] [address] [id number] [place] [address] 30 Apr, 2010 [facility] [place] [facility] [address] [id number] [place] [address] 17 Apr, 2010 [facility] [place] [facility] [address] [id number] [place] [address] 17 Apr, 2010 [facility] [place] [facility] [address] [id number] [place] [address] 15 Apr, 2010 [facility] [place] [facility] [address] [id number] [place] [address] 08 Apr, 2010 [facility] [place] [facility] [address] [id number], [place] [address] 20 Mar, 2010 [facility] [place] [facility] [address] [id number], [place] [address] 13 Mar, 2010 [facility] [place] [facility] [address] [id number] [place] [address] 29 May, 2009 [facility] [place] [facility] [address] [id number] [place] [address] 28 May, 2009 [facility] [place] [facility] [address] [id number] [place] [address] 21 May, 2009 [facility] [place] [facility] [id number] [address] 14 May, 2009 [facility] [id number], [place] [address] May, [facility] [id number], [place] [address] May, [facility] [id number], [place] [address] May, [facility] [id number], [place] [address] Apr, [facility] [id number] [place] [address] Apr, [facility] [id number], [place] [address] Apr, [facility] [id number], [place] [address] Apr, [facility] [id number], [place] [address] Mar, [facility] [id number] [address] Mar, [facility] [id number], [place] [address] Mar, [facility] [id number] [address] Jul, IMMUNIZATIONS No Known Immunizations SOCIAL HISTORY Never Assessed REASON FOR VISIT [facility] [place] VITAL SIGNS MEDICATIONS Unknown [...]
--- OUTSIDE RECORDS SUMMARY | 2018-11-07 12:54 | XMS REPORT ---
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 [facility] [address] [id number] [place] [address] 19 Feb, 2011 [facility] [place] [facility] [address] [id number] [place] [address] 10 Feb, 2011 [facility] [place] [facility] [address] [id number] [place] [address] 08 Feb, 2011 [facility] [place] [facility] [address] [id number] [place] [address] 06 Feb, 2011 [facility] [place] [facility] [address] [id number] [place] [address] 06 Feb, 2011 [facility] [place] [facility] [address] [id number] [place] [address] 21 Jan, 2012 [facility] [place] [facility] [address] [id number] [place] [address] 15 Jan, 2012 [facility] [place] [facility] [address] [id number] [place] [address] 10 Jan, 2012 [facility] [place] [facility] [address] [id number] [place] [address] 09 Jan, 2012 [facility] [place] [facility] [address] [id number] [place] [address] 17 Dec, 2011 [facility] [place] [facility] [address] [id number] [place] [address] 12 Dec, 2011 [facility] [place] [facility] [address] [id number] [place] [address] 18 Nov, 2011 [facility] [place] [facility] [address] [id number] [place] [address] 14 Nov, 2011 [facility] [place] [facility] [address] [id number] [place] [address] 12 Nov, 2011 [facility] [place] [facility] [address] [id number] [place] [address] 30 Oct, 2011 [facility] [place] [facility] [address] [id number] [place] [address] October, [facility] [place] [facility] [address] [id number] [place] [address] October, [facility] [place] [facility] [address] [id number] [place] [address] Sep, [facility] [place] [facility] [address] [id number] [place] [address] Sep, [facility] [place] [facility] [address] [id number] [place] [address] Sep, [facility] [place] [facility] [address] [id number] [place] [address] 30 Aug, 2011 [facility] [place] [facility] [address] [id number] [place] [address] Aug, [facility] [place] [facility] [address] [id number] [place] [address] Aug, [facility] [place] [facility] [address] [id number] [place] [address] Aug, [facility] [place] [facility] [address] [id number] [place] [address] Aug, [facility] [place] [facility] [address] [id number] [place] [address] Aug, [facility] [place] [facility] [address] [id number] [place] [address] Aug, [facility] [place] [facility] [address] [id number] [place] [address] Aug, [facility] [place] [facility] [address] [id number] [place] [address] Aug, [facility] [place] [facility] [address] [id number] [place] [address] Aug, [facility] [place] [facility] [address] [id number] [place] [address] Jul, [facility] [place] [facility] [address] [id number] [place] [address] Jul, [facility] [place] [facility] [address] [id number] [place] [address] Jul, [facility] [place] [facility] [address] [id number] [place] [address] Jul, [facility] [place] [facility] [address] [id number] [place] [address] Jul, [facility] [place] [facility] [address] [id number] [place] [address] Jun, [facility] [place] [facility] [address] [facility] [id number] [place] [address] Jun, [facility] [place] [facility] [address] [facility] [id number] [place] [address] Jun, [facility] [place] [facility] [address] [id number] [place] [address] May, [facility] [place] [facility] [address] [facility] [id number] [place] [address] Apr, [facility] [place] [facility] [address] [facility] [id number] [place] [address] Apr, [facility] [place] [facility] [address] [facility] [id number] [place] [address] Apr, [facility] [place] [facility] [address] [id number] [place] [address] Apr, [facility] [place] [facility] [address] [facility] [id number] [place] [address] Apr, [facility] [place] [facility] [address] [facility] [id number] [place] [address] Mar, [facility] [place] [facility] [address] [facility] [id number] [place] [address] 14 Mar, 2011 [facility] [place] [facility] [address] [id number] [place] [address] 11 Mar, 2011 [facility] [place] [facility] [address] [id number] [place] [address] 11 Mar, 2011 [facility] [place] [facility] [address] [id number] [place] [address] 11 Mar, 2011 [facility] [place] [facility] [address] [id number] [place] [address] 11 Mar, 2011 [facility] [place] [facility] [address] [id number] [place] [address] 14 May, 2010 [facility] [place] [facility] [address] [id number] [place] [address] 30 Apr, 2010 [facility] [place] [facility] [address] [id number] [place] [address] 17 Apr, 2010 [facility] [place] [facility] [address] [id number] [place] [address] 17 Apr, 2010 [facility] [place] [facility] [address] [id number] [place] [address] 15 Apr, 2010 [facility] [place] [facility] [address] [id number] [place] [address] 08 Apr, 2010 [facility] [place] [facility] [address] [id number], [place] [address] 20 Mar, 2010 [facility] [place] [facility] [address] [id number], [place] [address] 13 Mar, 2010 [facility] [place] [facility] [address] [id number] [place] [address] 29 May, 2009 [facility] [place] [facility] [address] [id number] [place] [address] 28 May, 2009 [facility] [place] [facility] [address] [id number] [place] [address] 21 May, 2009 [facility] [place] [facility] [id number], [place] [address] 14 May, 2009 [facility] [id number], [place] [address] May, [facility] [id number], [place] [address] May, [facility] [id number], [place] [address] May, [facility] [id number], [place] [address] Apr, [facility] [id number] [place] [address] Apr, [facility] [id number], [place] [address] Apr, [facility] [id number], [place] [address] Apr, [facility] [id number], [place] [address] Mar, [facility] [id number], [place] [address] Mar, [facility] [id number], [place] [address] Mar, [facility] [id number] [address] Jul, IMMUNIZATIONS No Known Immunizations SOCIAL HISTORY Never Assessed REASON FOR VISIT [facility] PLAN OF CARE VITAL SIGNS MEDICATIONS Unknown [...]
--- OUTSIDE RECORDS SUMMARY | 2018-11-07 12:54 | XMS REPORT ---
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 [id number] [place] [address] 10 Feb, 2011 [facility] [place] [facility] [address] [id number] [place] [address] 08 Feb, 2011 [facility] [place] [facility] [address] [id number] [place] [address] 06 Feb, 2011 [facility] [place] [facility] [address] [id number] [place] [address] 06 Feb, 2011 [facility] [place] [facility] [address] [id number] [place] [address] 21 Jan, 2012 [facility] [place] [facility] [address] [id number] [place] [address] 15 Jan, 2012 [facility] [place] [facility] [address] [id number] [place] [address] 10 Jan, 2012 [facility] [place] [facility] [address] [id number] [place] [address] 09 Jan, 2012 [facility] [place] [facility] [address] [id number] [place] [address] 17 Dec, 2011 [facility] [place] [facility] [address] [id number] [place] [address] 12 Dec, 2011 [facility] [place] [facility] [address] [id number] [place] [address] 18 Nov, 2011 [facility] [place] [facility] [address] [id number] [place] [address] 14 Nov, 2011 [facility] [place] [facility] [address] [id number] [place] [address] 12 Nov, 2011 [facility] [place] [facility] [address] [id number] [place] [address] 30 Oct, 2011 [facility] [place] [facility] [address] [id number] [place] [address] October, [facility] [place] [facility] [address] [id number] [place] [address] October, [facility] [place] [facility] [address] [id number] [place] [address] Sep, [facility] [place] [facility] [address] [id number] [place] [address] Sep, [facility] [place] [facility] [address] [id number] [place] [address] Sep, [facility] [place] [facility] [address] [id number] [place] [address] 30 Aug, 2011 [facility] [place] [facility] [address] [id number] [place] [address] Aug, [facility] [place] [facility] [address] [id number] [place] [address] Aug, [facility] [place] [facility] [address] [id number] [place] [address] Aug, [facility] [place] [facility] [address] [id number] [place] [address] Aug, [facility] [place] [facility] [address] [id number] [place] [address] Aug, [facility] [place] [facility] [address] [id number] [place] [address] Aug, [facility] [place] [facility] [address] [id number] [place] [address] Aug, [facility] [place] [facility] [address] [id number] [place] [address] Aug, [facility] [place] [facility] [address] [id number] [place] [address] Aug, [facility] [place] [facility] [address] [id number] [place] [address] Jul, [facility] [place] [facility] [address] [id number] [place] [address] Jul, [facility] [place] [facility] [address] [id number] [place] [address] Jul, [facility] [place] [facility] [address] [id number] [place] [address] Jul, [facility] [place] [facility] [address] [id number] [place] [address] Jul, [facility] [place] [facility] [address] [id number] [place] [address] Jun, [facility] [place] [facility] [address] [facility] [id number] [place] [address] Jun, [facility] [place] [facility] [address] [facility] [id number] [place] [address] Jun, [facility] [place] [facility] [address] [id number] [place] [address] May, [facility] [place] [facility] [address] [facility] [id number] [place] [address] Apr, [facility] [place] [facility] [address] [facility] [id number] [place] [address] Apr, [facility] [place] [facility] [address] [facility] [id number] [place] [address] Apr, [facility] [place] [facility] [address] [id number] [place] [address] Apr, [facility] [place] [facility] [address] [facility] [id number] [place] [address] Apr, [facility] [place] [facility] [address] [facility] [id number] [place] [address] Mar, [facility] [place] [facility] [address] [facility] [id number] [place] [address] 14 Mar, 2011 [facility] [place] [facility] [address] [id number] [place] [address] 11 Mar, 2011 [facility] [place] [facility] [address] [id number] [place] [address] 11 Mar, 2011 [facility] [place] [facility] [address] [id number] [place] [address] 11 Mar, 2011 [facility] [place] [facility] [address] [id number] [place] [address] 11 Mar, 2011 [facility] [place] [facility] [address] [id number] [place] [address] 14 May, 2010 [facility] [place] [facility] [address] [id number] [place] [address] 30 Apr, 2010 [facility] [place] [facility] [address] [id number] [place] [address] 17 Apr, 2010 [facility] [place] [facility] [address] [id number] [place] [address] 17 Apr, 2010 [facility] [place] [facility] [address] [id number] [place] [address] 15 Apr, 2010 [facility] [place] [facility] [address] [id number] [place] [address] 08 Apr, 2010 [facility] [place] [facility] [address] [id number] [address] 20 Mar, 2010 [facility] [place] [facility] [address] [id number] [place] [address] 13 Mar, 2010 [facility] [place] [facility] [address] [id number] [place] [address] 29 May, 2009 [facility] [place] [facility] [address] [id number] [place] [address] 28 May, 2009 [facility] [place] [facility] [address] [id number] [place] [address] 21 May, 2009 [facility] [place] [facility] [id number] [address] 14 May, 2009 [facility] [id number] [address] May, [facility] [id number] [address] May, [facility] [id number] [address] May, [facility] [id number] [address] Apr, [facility] [id number] [place] [address] Apr, [facility] [id number] [address] Apr, [facility] [id number] [address] Apr, [facility] [id number] [address] Mar, [facility] [id number] [address] Mar, [facility] [id number] [address] Mar, [facility] [address] [id number] [address] Jul, IMMUNIZATIONS No Known Immunizations SOCIAL HISTORY Never Assessed REASON FOR VISIT [facility] [place] PLAN OF CARE VITAL SIGNS MEDICATIONS [...]
--- OUTSIDE RECORDS SUMMARY | 2018-11-07 12:55 | XMS REPORT ---
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 [address] 20 Feb, 2011 [facility] [place] [facility] [address] [id number] [place] [address] 19 Feb, 2011 [facility] [place] [facility] [address] [id number] [place] [address] 10 Feb, 2011 [facility] [place] [facility] [address] [id number] [place] [address] 08 Feb, 2011 [facility] [place] [facility] [address] [id number] [place] [address] 06 Feb, 2011 [facility] [place] [facility] [address] [id number] [place] [address] 06 Feb, 2011 [facility] [place] [facility] [address] [id number] [place] [address] 21 Jan, 2012 [facility] [place] [facility] [address] [id number] [place] [address] 15 Jan, 2012 [facility] [place] [facility] [address] [id number] [place] [address] 10 Jan, 2012 [facility] [place] [facility] [address] [id number] [place] [address] 09 Jan, 2012 [facility] [place] [facility] [address] [id number] [place] [address] 17 Dec, 2011 [facility] [place] [facility] [address] [id number] [place] [address] 12 Dec, 2011 [facility] [place] [facility] [address] [id number] [place] [address] 18 Nov, 2011 [facility] [place] [facility] [address] [id number] [place] [address] 14 Nov, 2011 [facility] [place] [facility] [address] [id number] [place] [address] 12 Nov, 2011 [facility] [place] [facility] [address] [id number] [place] [address] 30 Oct, 2011 [facility] [place] [facility] [address] [id number] [place] [address] October, [facility] [place] [facility] [address] [id number] [place] [address] October, [facility] [place] [facility] [address] [id number] [place] [address] Sep, [facility] [place] [facility] [address] [id number] [place] [address] Sep, [facility] [place] [facility] [address] [id number] [place] [address] Sep, [facility] [place] [facility] [address] [id number] [place] [address] 30 Aug, 2011 [facility] [place] [facility] [address] [id number] [place] [address] Aug, [facility] [place] [facility] [address] [id number] [place] [address] Aug, [facility] [place] [facility] [address] [id number] [place] [address] Aug, [facility] [place] [facility] [address] [id number] [place] [address] Aug, [facility] [place] [facility] [address] [id number] [place] [address] Aug, [facility] [place] [facility] [address] [id number] [place] [address] Aug, [facility] [place] [facility] [address] [id number] [place] [address] Aug, [facility] [place] [facility] [address] [id number] [place] [address] Aug, [facility] [place] [facility] [address] [id number] [place] [address] Aug, [facility] [place] [facility] [address] [id number] [place] [address] Jul, [facility] [place] [facility] [address] [id number] [place] [address] Jul, [facility] [place] [facility] [address] [id number] [place] [address] Jul, [facility] [place] [facility] [address] [id number] [place] [address] Jul, [facility] [place] [facility] [address] [id number] [place] [address] Jul, [facility] [place] [facility] [address] [id number] [place] [address] Jun, [facility] [place] [facility] [address] [facility] [id number] [place] [address] Jun, [facility] [place] [facility] [address] [facility] [id number] [place] [address] Jun, [facility] [place] [facility] [address] [id number] [place] [address] May, [facility] [place] [facility] [address] [facility] [id number] [place] [address] Apr, [facility] [place] [facility] [address] [facility] [id number] [place] [address] Apr, [facility] [place] [facility] [address] [facility] [id number] [place] [address] Apr, [facility] [place] [facility] [address] [id number] [place] [address] Apr, [facility] [place] [facility] [address] [facility] [id number] [place] [address] Apr, [facility] [place] [facility] [address] [facility] [id number] [place] [address] Mar, [facility] [place] [facility] [address] [facility] [id number] [place] [address] 14 Mar, 2011 [facility] [place] [facility] [address] [id number] [place] [address] 11 Mar, 2011 [facility] [place] [facility] [address] [id number] [place] [address] 11 Mar, 2011 [facility] [place] [facility] [address] [id number] [place] [address] 11 Mar, 2011 [facility] [place] [facility] [address] [id number] [place] [address] 11 Mar, 2011 [facility] [place] [facility] [address] [id number] [place] [address] 14 May, 2010 [facility] [place] [facility] [address] [id number] [place] [address] 30 Apr, 2010 [facility] [place] [facility] [address] [id number] [place] [address] 17 Apr, 2010 [facility] [place] [facility] [address] [id number] [place] [address] 17 Apr, 2010 [facility] [place] [facility] [address] [id number] [place] [address] 15 Apr, 2010 [facility] [place] [facility] [address] [id number] [place] [address] 08 Apr, 2010 [facility] [place] [facility] [address] [id number], [place] [address] 20 Mar, 2010 [facility] [place] [facility] [address] [id number], [place] [address] 13 Mar, 2010 [facility] [place] [facility] [address] [id number] [place] [address] 29 May, 2009 [facility] [place] [facility] [address] [id number] [place] [address] 28 May, 2009 [facility] [place] [facility] [address] [id number] [place] [address] 21 May, 2009 [facility] [place] [facility] [id number], [place] [address] 14 May, 2009 [facility] [id number], [place] [address] May, [facility] [id number], [place] [address] May, [facility] [id number], [place] [address] May, [facility] [id number], [place] [address] Apr, [facility] [id number] [place] [address] Apr, [facility] [id number], [place] [address] Apr, [facility] [id number], [place] [address] Apr, [facility] [id number], [place] [address] Mar, [facility] [id number], [place] [address] Mar, [facility] [id number], [place] [address] Mar, [facility] [address] [id number] [address] Jul, IMMUNIZATIONS No Known Immunizations SOCIAL HISTORY Never Assessed REASON FOR VISIT [facility] PLAN OF CARE VITAL SIGNS MEDICATIONS Unknown [...]
--- OUTSIDE RECORDS SUMMARY | 2018-11-07 12:58 | XMS REPORT | Continuity of Care Document ---
Author Organization Unknown Address Unknown Allergies Active Description Code Type Severity Reaction Onset Reported/Identified Relationship to Patient Clinical Status Yes ADHESIVE TAPE MODERATE DERMATOLOGICAL - HIV Yes LATEX MODERATE DERMATOLOGICAL - HIV Yes MORPHINE MODERATE ITCHING Yes SULFA (SULFONAMIDE ANTIBIOTICS) SEVERE DERMATOLOGICAL - HIV Yes No Known Drug Allergies [id number] Drug Allergy Unknown N/A 10/13/2007 Yes morphine Drug Allergy N/A N/A 07/19/2008 Yes morphine Drug Allergy 07/19/2008 Yes latex Drug Allergy N/A N/A 09/22/2013 Yes Bactrim Drug Allergy N/A N/A 05/12/2014 Yes morphine [id number] Drug Allergy Mild N/A 09/24/2018 Yes adhesive tape [id number] Drug Allergy Unknown N/A 09/24/2018 Yes latex [id number] Drug Allergy Unknown N/A 09/24/2018 Yes Sulfa (Sulfonamide Antibiotics) [id number] Drug Allergy Unknown N/A 09/24/2018 Medications Medication Packaging Start Date Stop Date Route Dosage Sig TETANUS,DIPTH,PERT ADULT INJ 0 (ADACEL SYRINGE) ml 02/25/2017 02/25/2017 ONCE&1756 KETOROLAC VIAL INJ 15 MG/CC (TORADOL VIAL) MG 05/21/2017 05/21/2017 ONCE&2221 ONDANSETRON VIAL INJ 4 MG/2CC (ZOFRAN 2CC VIAL) MG 05/21/2017 05/21/2017 ONCE&2221 NORMAL SALINE 1000CC IV BAG INJ 0.9 % (NS 1000CC IV BAG) ml 05/21/2017 05/21/2017 ONCE&2221 KETOROLAC VIAL INJ 30 MG/CC (TORADOL VIAL) MG 12/28/2017 12/28/2017 ONCE&1410 ONDANSETRON VIAL INJ 4 MG/2CC (ZOFRAN 2CC VIAL) MG 12/28/2017 12/28/2017 ONCE&1410 LACTATED RINGERS 1000CC IV BAG INJ ml 12/28/2017 12/28/2017 ONCE&1410 FAMOTIDINE VIAL INJ 20 MG/2CC (PEPCID VIAL) MG 12/28/2017 12/28/2017 ONCE&1549 LACTATED RINGERS 1000CC IV BAG INJ ml 01/29/2018 01/30/2018 CONTINUOUSEVERY 0 Hour TETANUS,DIPTH,PERT ADULT INJ 0 (ADACEL SYRINGE) ml 10/08/2018 10/08/2018 ONCE&1855 Problems Date Dx Coded Attending Type Code Diagnosis Diagnosed By 12/15/2007 CINDY CARRERA APRN 724.5 Backache Unspecified 12/15/2007 CINDY CARRERA APRN 724.5 Backache Unspecified 12/15/2007 CINDY CARRERA APRN 724.5 Backache Unspecified 12/15/2007 724.5 Backache Unspecified 12/15/2007 RUBINA FLETCHER DO K 724.5 Backache Unspecified 12/15/2007 724.5 Backache Unspecified 12/15/2007 724.5 Backache Unspecified 12/15/2007 724.5 Backache Unspecified 12/15/2007 BENTLEY SOLIZ MD 724.5 Backache Unspecified 12/15/2007 COURTNEY MACARIO APRN 724.5 Backache Unspecified 12/15/2007 CINDY CARRERA APRN S 724.5 Backache Unspecified 12/15/2007 RUBINA FLETCHER DO K 724.5 Backache Unspecified 12/15/2007 RUBINA FLETCHER DO 724.5 Backache Unspecified 12/15/2007 CINDY CARRERA APRN S 724.5 Backache Unspecified 12/15/2007 CINDY CARRERA APRN S 724.5 Backache Unspecified 12/15/2007 CINDY CARRERA APRN 724.5 Backache Unspecified 12/15/2007 CINDY CARRERA APRN 724.5 Backache Unspecified 12/15/2007 CINDY CARRERA APRN S 724.5 Backache Unspecified 12/15/2007 CINDY CARRERA APRN S 724.5 Backache Unspecified 12/15/2007 DEBI FURNITURE DETAILER, CINDY S 724.5 Backache Unspecified 12/15/2007 DEBI FURNITURE DETAILER, CINDY S 724.5 Backache Unspecified 12/15/2007 MARLENA FURNITURE DETAILER, ERIC A 724.5 Backache Unspecified 12/15/2007 ARTEM FURNITURE DETAILER, ROSIO T 724.5 Backache Unspecified 12/15/2007 ARTEM FURNITURE DETAILER, ROSIO T 724.5 Backache Unspecified 12/15/2007 DEBI FURNITURE DETAILER, CINDY S 724.5 Backache Unspecified 12/15/2007 DEBI FURNITURE DETAILER, CINDY S 724.5 Backache Unspecified 12/15/2007 DEBI FURNITURE DETAILER, CINDY S 724.5 Backache Unspecified 12/15/2007 DEBI FURNITURE DETAILER, CINDY S 724.5 Backache Unspecified 12/15/2007 DEBI FURNITURE DETAILER, CINDY S 724.5 Backache Unspecified 12/15/2007 DEBI FURNITURE DETAILER, CINDY S 724.5 Backache Unspecified 12/15/2007 DEBI FURNITURE DETAILER, CINDY S 724.5 Backache Unspecified 12/15/2007 DEBI FURNITURE DETAILER, CINDY S 724.5 Backache Unspecified 12/15/2007 MARLENA FURNITURE DETAILER, ERIC A 724.5 Backache Unspecified 12/15/2007 MARLENA FURNITURE DETAILER, ERIC A 724.5 Backache Unspecified 12/15/2007 DEBI FURNITURE DETAILER, CINDY S 724.5 Backache Unspecified 12/15/2007 MARLEAN FURNITURE DETAILER, ERIC A 724.5 Backache Unspecified 12/15/2007 DEBI FURNITURE DETAILER, CINDY S 724.5 Backache Unspecified 02/13/2008 DEBI FURNITURE DETAILER, CINDY S V58.69 Medication High Risk 02/13/2008 DEBI FURNITURE DETAILER, CINDY S V58.69 Medication High Risk 02/13/2008 DEBI WARD CINDY S V58.69 Medication High Risk 02/13/2008 V58.69 Medication High Risk 02/13/2008 RUBINA FLETCHER DO V58.69 Medication High Risk 02/13/2008 V58.69 Medication High Risk 02/13/2008 V58.69 Medication High Risk 02/13/2008 V58.69 Medication High Risk 02/13/2008 BENTLEY SOLIZ MD V58.69 Medication High Risk 02/13/2008 COURTNEY MACARIO APRN V58.69 Medication High Risk 02/13/2008 DEBI FURNITURE DETAILER, CINDY S V58.69 Medication High Risk 02/13/2008 FLETCHER DO, RUBINA K V58.69 Medication High Risk 02/13/2008 FLETCHER DO, RUBINA K V58.69 Medication High Risk 02/13/2008 DEBI FURNITURE DETAILER, CINDY S V58.69 Medication High Risk 02/13/2008 DEBI FURNITURE DETAILER, CINDY S V58.69 Medication High Risk 02/13/2008 DEBI FURNITURE DETAILER, CINDY S V58.69 Medication High Risk 02/13/2008 DEBI FURNITURE DETAILER, CINDY S V58.69 Medication High Risk 02/13/2008 DEBI FURNITURE DETAILER, CINDY S V58.69 Medication High Risk 02/13/2008 DEBI FURNITURE DETAILER, CINDY S V58.69 Medication High Risk 02/13/2008 DEBI FURNITURE DETAILER, CINDY S V58.69 Medication High Risk 02/13/2008 DEBI FURNITURE DETAILER, CINDY S V58.69 Medication High Risk 02/13/2008 ERIC MENDIOLA APRN A V58.69 Medication High Risk 02/13/2008 ROSIO MCGILL APRN V58.69 Medication High Risk 02/13/2008 ROSIO MCGILL APRN V58.69 Medication High Risk 02/13/2008 DEBI FURNITURE DETAILER, CINDY S V58.69 Medication High Risk 02/13/2008 DEBI FURNITURE DETAILER, CINDY S V58.69 Medication High Risk 02/13/2008 DEBI FURNITURE DETAILER, CINDY S V58.69 Medication High Risk 02/13/2008 DEBI FURNITURE DETAILER, CINDY S V58.69 Medication High Risk 02/13/2008 DEBI FURNITURE DETAILER, CINDY S V58.69 Medication High Risk 02/13/2008 DEBI FURNITURE DETAILER, CINDY S V58.69 Medication High Risk 02/13/2008 DEBI FURNITURE DETAILER, CINDY S V58.69 Medication High Risk 02/13/2008 DEBI FURNITURE DETAILER, CINDY S V58.69 Medication High Risk 02/13/2008 MARLENA FURNITURE DETAILER, ERIC A V58.69 Medication High Risk 02/13/2008 MARLENA FURNITURE DETAILER, ERIC A V58.69 Medication High Risk 02/13/2008 DEBI FURNITURE DETAILER, CINDY S V58.69 Medication High Risk 02/13/2008 MARLENA FURNITURE DETAILER, ERIC A V58.69 Medication High Risk 02/13/2008 DEBI FURNITURE DETAILER, CINDY S V58.69 Medication High Risk 07/19/2008 DEBI BRUNERN, CINDY S 724.2 lower back pain 07/19/2008 DEBI BRUNERN, CINDY S 724.2 lower back pain 07/19/2008 DEBI BRUNERN, CINDY S 724.2 lower back pain 07/19/2008 724.2 lower back pain 07/19/2008 FLETCHER DO, RUBINA K 724.2 lower back pain 07/19/2008 724.2 lower back pain 07/19/2008 724.2 lower back pain 07/19/2008 724.2 lower back pain 07/19/2008 BENTLEY SOLIZ MD 724.2 lower back pain 07/19/2008 COURTNEY MACARIO APRN R 724.2 lower back pain 07/19/2008 DEBI BRUNERN, CINDY S 724.2 lower back pain 07/19/2008 FLETCHER DO, RUBINA K 724.2 lower back pain 07/19/2008 FLETCHER DO, RUBINA K 724.2 lower back pain 07/19/2008 DEBI FURNITURE DETAILER, CINDY S 724.2 lower back pain 07/19/2008 DEBI FURNITURE DETAILER, CINDY S 724.2 lower back pain 07/19/2008 DEBI FURNITURE DETAILER, CINDY S 724.2 lower back pain 07/19/2008 DEBI FURNITURE DETAILER, CINDY S 724.2 lower back pain 07/19/2008 DEBI BRUNERN, CINDY S 724.2 lower back pain 07/19/2008 DEBI FURNITURE DETAILER, CINDY S 724.2 lower back pain 07/19/2008 DEBI FURNITURE DETAILER, CINDY S 724.2 lower back pain 07/19/2008 DEBI FURNITURE DETAILER, CINDY S 724.2 lower back pain 07/19/2008 MARLENA FURNITURE DETAILER, ERIC A 724.2 lower back pain 07/19/2008 ARTEM FURNITURE DETAILER, ROSIO T 724.2 lower back pain 07/19/2008 ARTEM FURNITURE DETAILER, ROSIO T 724.2 lower back pain 07/19/2008 DEBI FURNITURE DETAILER, CINDY S 724.2 lower back pain 07/19/2008 DEBI FURNITURE DETAILER, CINDY S 724.2 lower back pain 07/19/2008 DEBI FURNITURE DETAILER, CINDY S 724.2 lower back pain 07/19/2008 DEBI FURNITURE DETAILER, CINDY S 724.2 lower back pain 07/19/2008 DEBI FURNITURE DETAILER, CINDY S 724.2 lower back pain 07/19/2008 DEBI FURNITURE DETAILER, CINDY S 724.2 lower back pain 07/19/2008 DEBI FURNITURE DETAILER, CINDY S 724.2 lower back pain 07/19/2008 DEBI FURNITURE DETAILER, CINDY S 724.2 lower back pain 07/19/2008 MARLENA FURNITURE DETAILER, ERIC A 724.2 lower back pain 07/19/2008 MARLENA FURNITURE DETAILER, ERIC A 724.2 lower back pain 07/19/2008 DEBI FURNITURE DETAILER, CINDY S 724.2 lower back pain 07/19/2008 MARLENA FURNITURE DETAILER, ERIC A 724.2 lower back pain 07/19/2008 DEBI FURNITURE DETAILER, CINDY S 724.2 lower back pain 10/28/2008 DEBI FURNITURE DETAILER, CINDY S 346.90 Migraine Unspecified Without Intractable Migraine 10/28/2008 DEBI FURNITURE DETAILER, CINDY S 346.90 Migraine Unspecified Without Intractable Migraine 10/28/2008 DEBI FURNITURE DETAILER, CINDY S 346.90 Migraine Unspecified Without Intractable Migraine 10/28/2008 346.90 Migraine Unspecified Without Intractable Migraine 10/28/2008 RUBINA FLETCHER DO 346.90 Migraine Unspecified Without Intractable Migraine 10/28/2008 346.90 Migraine Unspecified Without Intractable Migraine 10/28/2008 346.90 Migraine Unspecified Without Intractable Migraine 10/28/2008 346.90 Migraine Unspecified Without Intractable Migraine 10/28/2008 BENTLEY SOLIZ MD 346.90 Migraine Unspecified Without Intractable Migraine 10/28/2008 COURTNEY MACARIO APRN 346.90 Migraine Unspecified Without Intractable Migraine 10/28/2008 DEBI FURNITURE DETAILER, CINDY S 346.90 Migraine Unspecified Without Intractable Migraine 10/28/2008 FLETCHER DO, RUBINA K 346.90 Migraine Unspecified Without Intractable Migraine 10/28/2008 FLETCHER DO, RUBINA K 346.90 Migraine Unspecified Without Intractable Migraine 10/28/2008 DEBI FURNITURE DETAILER, CINDY S 346.90 Migraine Unspecified Without Intractable Migraine 10/28/2008 DEBI FURNITURE DETAILER, CINDY S 346.90 Migraine Unspecified Without Intractable Migraine 10/28/2008 DEBI FURNITURE DETAILER, CINDY S 346.90 Migraine Unspecified Without Intractable Migraine 10/28/2008 DEBI FURNITURE DETAILER, CINDY S 346.90 Migraine Unspecified Without Intractable Migraine 10/28/2008 DEBI FURNITURE DETAILER, CINDY S 346.90 Migraine Unspecified Without Intractable Migraine 10/28/2008 DEBI FURNITURE DETAILER, CINDY S 346.90 Migraine Unspecified Without Intractable Migraine 10/28/2008 DEBI FURNITURE DETAILER, CINDY S 346.90 Migraine Unspecified Without Intractable Migraine 10/28/2008 DEBI FURNITURE DETAILER, CINDY S 346.90 Migraine Unspecified Without Intractable Migraine 10/28/2008 ERIC MENDIOLA APRN A 346.90 Migraine Unspecified Without Intractable Migraine 10/28/2008 ARTEM FURNITURE DETAILERROISO T 346.90 Migraine Unspecified Without Intractable Migraine 10/28/2008 ARTEM FURNITURE DETAILER, ROSIO T 346.90 Migraine Unspecified Without Intractable Migraine 10/28/2008 DEBI FURNITURE DETAILER, CINDY S 346.90 Migraine Unspecified Without Intractable Migraine 10/28/2008 DEBI FURNITURE DETAILER, CINDY S 346.90 Migraine Unspecified Without Intractable Migraine 10/28/2008 DEBI FURNITURE DETAILER, CINDY S 346.90 Migraine Unspecified Without Intractable Migraine 10/28/2008 DEBI FURNITURE DETAILER, CINDY S 346.90 Migraine Unspecified Without Intractable Migraine 10/28/2008 DEBI FURNITURE DETAILER, CINDY S 346.90 Migraine Unspecified Without Intractable Migraine 10/28/2008 DEBI FURNITURE DETAILER, CINDY S 346.90 Migraine Unspecified Without Intractable Migraine 10/28/2008 DEBI FURNITURE DETAILER, CINDY S 346.90 Migraine Unspecified Without Intractable Migraine 10/28/2008 DEBI FURNITURE DETAILER, CINDY S 346.90 Migraine Unspecified Without Intractable Migraine 10/28/2008 MARLENA FURNITURE DETAILER, ERIC A 346.90 Migraine Unspecified Without Intractable Migraine 10/28/2008 MARLENA FURNITURE DETAILER, ERIC A 346.90 Migraine Unspecified Without Intractable Migraine 10/28/2008 DEBI FURNITURE DETAILER, CINDY S 346.90 Migraine Unspecified Without Intractable Migraine 10/28/2008 MARLENA FURNITURE DETAILER, ERIC A 346.90 Migraine Unspecified Without Intractable Migraine 10/28/2008 DEBI FURNITURE DETAILER, CINDY S 346.90 Migraine Unspecified Without Intractable Migraine 12/30/2008 DEBI FURNITURE DETAILER, CINDY S 784.0 Benign Headache Syndromes 12/30/2008 DEBI FURNITURE DETAILER, CINDY S 784.0 Benign Headache Syndromes 12/30/2008 DEBI FURNITURE DETAILER, CINDY S 784.0 Benign Headache Syndromes 12/30/2008 784.0 Benign Headache Syndromes 12/30/2008 TRISTON FLETCHER DOA K 784.0 Benign Headache Syndromes 12/30/2008 784.0 Benign Headache Syndromes 12/30/2008 784.0 Benign Headache Syndromes 12/30/2008 784.0 Benign Headache Syndromes 12/30/2008 BENTLEY SOLIZ MD 784.0 Benign Headache Syndromes 12/30/2008 COURTNEY MACARIO APRN 784.0 Benign Headache Syndromes 12/30/2008 DEBI FURNITURE DETAILER, CINDY S 784.0 Benign Headache Syndromes 12/30/2008 JUSTINE SUERO RUBINA K 784.0 Benign Headache Syndromes 12/30/2008 FLETCHER DO RUBINA K 784.0 Benign Headache Syndromes 12/30/2008 DEBI FURNITURE DETAILER, CINDY S 784.0 Benign Headache Syndromes 12/30/2008 DEBI FURNITURE DETAILER, CINDY S 784.0 Benign Headache Syndromes 12/30/2008 DEBI FURNITURE DETAILER, CINDY S 784.0 Benign Headache Syndromes 12/30/2008 DEBI FURNITURE DETAILER, CINDY S 784.0 Benign Headache Syndromes 12/30/2008 DEBI FURNITURE DETAILER, CINDY S 784.0 Benign Headache Syndromes 12/30/2008 DEBI FURNITURE DETAILER, CINDY S 784.0 Benign Headache Syndromes 12/30/2008 DEBI FURNITURE DETAILER, CINDY S 784.0 Benign Headache Syndromes 12/30/2008 DEBI FURNITURE DETAILER, CINDY S 784.0 Benign Headache Syndromes 12/30/2008 MARLENA FURNITURE DETAILER, ERIC A 784.0 Benign Headache Syndromes 12/30/2008 ARTEM FURNITURE DETAILER, ROSIO T 784.0 Benign Headache Syndromes 12/30/2008 ARTEM FURNITURE DETAILER, ROSIO T 784.0 Benign Headache Syndromes 12/30/2008 DEBI FURNITURE DETAILER, CINDY S 784.0 Benign Headache Syndromes 12/30/2008 DEBI FURNITURE DETAILER, CINDY S 784.0 Benign Headache Syndromes 12/30/2008 DEBI FURNITURE DETAILER, CINDY S 784.0 Benign Headache Syndromes 12/30/2008 DEBI FURNITURE DETAILER, CINDY S 784.0 Benign Headache Syndromes 12/30/2008 DEBI FURNITURE DETAILER, CINDY S 784.0 Benign Headache Syndromes 12/30/2008 DEBI FURNITURE DETAILER, CINDY S 784.0 Benign Headache Syndromes 12/30/2008 DEBI FURNITURE DETAILER, CINDY S 784.0 Benign Headache Syndromes 12/30/2008 DEBI FURNITURE DETAILER, CINDY S 784.0 Benign Headache Syndromes 12/30/2008 MARLENA FURNITURE DETAILER, ERIC A 784.0 Benign Headache Syndromes 12/30/2008 MARLENA FURNITURE DETAILER, ERIC A 784.0 Benign Headache Syndromes 12/30/2008 DEBI FURNITURE DETAILER, CINDY S 784.0 Benign Headache Syndromes 12/30/2008 MARLENA FURNITURE DETAILER, ERIC A 784.0 Benign Headache Syndromes 12/30/2008 DEBI FURNITURE DETAILER, CINDY S 784.0 Benign Headache Syndromes 02/05/2009 DEBI FURNITURE DETAILER, CINDY S 477.0 ALLERGIC RHINITIS DUE TO POLLEN 02/05/2009 DEBI FURNITURE DETAILER, CINDY S 477.0 ALLERGIC RHINITIS DUE TO POLLEN 02/05/2009 DEBI FURNITURE DETAILER, CINDY S 477.0 ALLERGIC RHINITIS DUE TO POLLEN 02/05/2009 477.0 ALLERGIC RHINITIS DUE TO POLLEN 02/05/2009 FLETCHER DO, RUBINA K 477.0 ALLERGIC RHINITIS DUE TO POLLEN 02/05/2009 477.0 ALLERGIC RHINITIS DUE TO POLLEN 02/05/2009 477.0 ALLERGIC RHINITIS DUE TO POLLEN 02/05/2009 477.0 ALLERGIC RHINITIS DUE TO POLLEN 02/05/2009 BENTLEY SOLIZ MD 477.0 ALLERGIC RHINITIS DUE TO POLLEN 02/05/2009 COURTNEY MACARIO APRN 477.0 ALLERGIC RHINITIS DUE TO POLLEN 02/05/2009 DEBI FURNITURE DETAILER, CINDY S 477.0 ALLERGIC RHINITIS DUE TO POLLEN 02/05/2009 FLETCHER DO, RUBINA K 477.0 ALLERGIC RHINITIS DUE TO POLLEN 02/05/2009 FLETCHER DO, RUBINA K 477.0 ALLERGIC RHINITIS DUE TO POLLEN 02/05/2009 DEBI FURNITURE DETAILER, CINDY S 477.0 ALLERGIC RHINITIS DUE TO POLLEN 02/05/2009 DEBI FURNITURE DETAILER, CINDY S 477.0 ALLERGIC RHINITIS DUE TO POLLEN 02/05/2009 DEBI FURNITURE DETAILER, CINDY S 477.0 ALLERGIC RHINITIS DUE TO POLLEN 02/05/2009 DEBI FURNITURE DETAILER, CINDY S 477.0 ALLERGIC RHINITIS DUE TO POLLEN 02/05/2009 DEBI FURNITURE DETAILER, CINDY S 477.0 ALLERGIC RHINITIS DUE TO POLLEN 02/05/2009 DEBI FURNITURE DETAILER, CINDY S 477.0 ALLERGIC RHINITIS DUE TO POLLEN 02/05/2009 DEBI FURNITURE DETAILER, CINDY S 477.0 ALLERGIC RHINITIS DUE TO POLLEN 02/05/2009 DEBI FURNITURE DETAILER, CINDY S 477.0 ALLERGIC RHINITIS DUE TO POLLEN 02/05/2009 ERIC MENDIOLA APRN A 477.0 ALLERGIC RHINITIS DUE TO POLLEN 02/05/2009 ROSIO MCGILL APRN 477.0 ALLERGIC RHINITIS DUE TO POLLEN 02/05/2009 ROSIO MCGILL APRN 477.0 ALLERGIC RHINITIS DUE TO POLLEN 02/05/2009 DEBI FURNITURE DETAILER, CINDY S 477.0 ALLERGIC RHINITIS DUE TO POLLEN 02/05/2009 DEBI FURNITURE DETAILER, CINDY S 477.0 ALLERGIC RHINITIS DUE TO POLLEN 02/05/2009 DEBI FURNITURE DETAILER, CINDY S 477.0 ALLERGIC RHINITIS DUE TO POLLEN 02/05/2009 DEBI FURNITURE DETAILER, CINDY S 477.0 ALLERGIC RHINITIS DUE TO POLLEN 02/05/2009 DEBI FURNITURE DETAILER, CINDY S 477.0 ALLERGIC RHINITIS DUE TO POLLEN 02/05/2009 DEBI FURNITURE DETAILER, CINDY S 477.0 ALLERGIC RHINITIS DUE TO POLLEN 02/05/2009 DEBI FURNITURE DETAILER, CINDY S 477.0 ALLERGIC RHINITIS DUE TO POLLEN 02/05/2009 DEBI FURNITURE DETAILER, CINDY S 477.0 ALLERGIC RHINITIS DUE TO POLLEN 02/05/2009 MARLENA FURNITURE DETAILER, ERIC A 477.0 ALLERGIC RHINITIS DUE TO POLLEN 02/05/2009 MARLENA FURNITURE DETAILER, ERIC A 477.0 ALLERGIC RHINITIS DUE TO POLLEN 02/05/2009 DEBI FURNITURE DETAILER, CINDY S 477.0 ALLERGIC RHINITIS DUE TO POLLEN 02/05/2009 MARLENA FURNITURE DETAILER, ERIC A 477.0 ALLERGIC RHINITIS DUE TO POLLEN 02/05/2009 DEBI FURNITURE DETAILER, CINDY S 477.0 ALLERGIC RHINITIS DUE TO POLLEN 02/22/2009 DEBI WARD, CINDY S 787.01 Nausea With Vomiting 02/22/2009 RUCHI CARRERA APRNNDA S 787.01 Nausea With Vomiting 02/22/2009 MARGARITA CARRERA APRNA S 787.01 Nausea With Vomiting 02/22/2009 787.01 Nausea With Vomiting 02/22/2009 RUBINA FLETCHER DO 787.01 Nausea With Vomiting 02/22/2009 787.01 Nausea With Vomiting 02/22/2009 787.01 Nausea With Vomiting 02/22/2009 787.01 Nausea With Vomiting 02/22/2009 HEYDI LAMAR, BENTLEY 787.01 Nausea With Vomiting 02/22/2009 COURTNEY MACARIO APRN 787.01 Nausea With Vomiting 02/22/2009 CINDY CARRERA APRN 787.01 Nausea With Vomiting 02/22/2009 RUBINA FLETCHER DO 787.01 Nausea With Vomiting 02/22/2009 RUBINA FLETCHER DO 787.01 Nausea With Vomiting 02/22/2009 DEBI WARD CINDY S 787.01 Nausea With Vomiting 02/22/2009 DEBI WARD CINDY S 787.01 Nausea With Vomiting 02/22/2009 DEBI WARD, CINDY S 787.01 Nausea With Vomiting 02/22/2009 DEBI WARD CINDY S 787.01 Nausea With Vomiting 02/22/2009 DEBI WARD CINDY S 787.01 Nausea With Vomiting 02/22/2009 DEBI WARD CINDY S 787.01 Nausea With Vomiting 02/22/2009 DEBI WARD CINDY S 787.01 Nausea With Vomiting 02/22/2009 DEBI WARD CINDY S 787.01 Nausea With Vomiting 02/22/2009 SHWETA MENDIOLA APRNIDI A 787.01 Nausea With Vomiting 02/22/2009 ROSIO MCGILL APRN 787.01 Nausea With Vomiting 02/22/2009 ROSIO MCGILL APRN 787.01 Nausea With Vomiting 02/22/2009 RUCHI CARRERA APRNNDA S 787.01 Nausea With Vomiting 02/22/2009 DEBI WARD CINDY S 787.01 Nausea With Vomiting 02/22/2009 RUCHI CARRERA APRNNDA S 787.01 Nausea With Vomiting 02/22/2009 DEBI WARD CINDY S 787.01 Nausea With Vomiting 02/22/2009 DEBI WARD CINDY S 787.01 Nausea With Vomiting 02/22/2009 RUCHI CARRERA APRNNDA S 787.01 Nausea With Vomiting 02/22/2009 DEBI WARD CINDY S 787.01 Nausea With Vomiting 02/22/2009 DEBI WARD CINDY S 787.01 Nausea With Vomiting 02/22/2009 MARLENAJose WARD ERIC A 787.01 Nausea With Vomiting 02/22/2009 MARLENAJose WARD ERIC A 787.01 Nausea With Vomiting 02/22/2009 RUCHI CARRERA APRNNDA S 787.01 Nausea With Vomiting 02/22/2009 MARLENAJose WARD ERIC A 787.01 Nausea With Vomiting 02/22/2009 DEBI FURNITURE DETAILER, CINDY S 787.01 Nausea With Vomiting 07/04/2009 DEBI FURNITURE DETAILER, CINDY S 376.81 Orbital Cysts 07/04/2009 DEBI FURNITURE DETAILER, CINDY S 388.70 Otalgia, Unspecified 07/04/2009 DEBI FURNITURE DETAILER, CINDY S 729.5 Pain In Limb 07/04/2009 DEBI FURNITURE DETAILER, CINDY S 793.89 Other (abnormal) Findings On Radiological Examination Of Breast 07/04/2009 DEBI FURNITURE DETAILER, CINDY S 376.81 Orbital Cysts 07/04/2009 DEBI FURNITURE DETAILER, CINDY S 388.70 Otalgia, Unspecified 07/04/2009 DEBI FURNITURE DETAILER, CINDY S 729.5 Pain In Limb 07/04/2009 DEBI FURNITURE DETAILER, CINDY S 793.89 Other (abnormal) Findings On Radiological Examination Of Breast 07/04/2009 DEBI FURNITURE DETAILER, CINDY S 376.81 Orbital Cysts 07/04/2009 DEBI FURNITURE DETAILER, CINDY S 388.70 Otalgia, Unspecified 07/04/2009 DEBI FURNITURE DETAILER, CINDY S 729.5 Pain In Limb 07/04/2009 DEBI FURNITURE DETAILER, CINDY S 793.89 Other (abnormal) Findings On Radiological Examination Of Breast 07/04/2009 376.81 Orbital Cysts 07/04/2009 388.70 Otalgia, Unspecified 07/04/2009 729.5 Pain In Limb 07/04/2009 793.89 Other (abnormal) Findings On Radiological Examination Of Breast 07/04/2009 FLETCHER DO, RUBINA K 376.81 Orbital Cysts 07/04/2009 FLETCHER DO, RUBINA K 388.70 Otalgia, Unspecified 07/04/2009 FLETCHER DO, RUBINA K 729.5 Pain In Limb 07/04/2009 FLETCHER DO, RUBINA K 793.89 Other (abnormal) Findings On Radiological Examination Of Breast 07/04/2009 376.81 Orbital Cysts 07/04/2009 388.70 Otalgia, Unspecified 07/04/2009 729.5 Pain In Limb 07/04/2009 793.89 Other (abnormal) Findings On Radiological Examination Of Breast 07/04/2009 376.81 Orbital Cysts 07/04/2009 388.70 Otalgia, Unspecified 07/04/2009 729.5 Pain In Limb 07/04/2009 793.89 Other (abnormal) Findings On Radiological Examination Of Breast 07/04/2009 376.81 Orbital Cysts 07/04/2009 388.70 Otalgia, Unspecified 07/04/2009 729.5 Pain In Limb 07/04/2009 793.89 Other (abnormal) Findings On Radiological Examination Of Breast 07/04/2009 BENTLEY SOLIZ MD 376.81 Orbital Cysts 07/04/2009 BENTLEY SOLIZ MD 388.70 Otalgia, Unspecified 07/04/2009 BENTLEY SOLIZ MD 729.5 Pain In Limb 07/04/2009 BENTLEY SOLIZ MD 793.89 Other (abnormal) Findings On Radiological Examination Of Breast 07/04/2009 [employer] FURNITURE DETAILER, COURTNEY R 376.81 Orbital Cysts 07/04/2009 MACARIO FURNITURE DETAILER, COURTNEY R 388.70 Otalgia, Unspecified 07/04/2009 MACARIO FURNITURE DETAILER, COURTNEY R 729.5 Pain In Limb 07/04/2009 MACARIO FURNITURE DETAILER, COURTNEY R 793.89 Other (abnormal) Findings On Radiological Examination Of Breast 07/04/2009 DEBI FURNITURE DETAILER, CINDY S 376.81 Orbital Cysts 07/04/2009 DEBI FURNITURE DETAILER, CINDY S 388.70 Otalgia, Unspecified 07/04/2009 DEBI FURNITURE DETAILER, CINDY S 729.5 Pain In Limb 07/04/2009 DEBI FURNITURE DETAILER, CINDY S 793.89 Other (abnormal) Findings On Radiological Examination Of Breast 07/04/2009 FLETCHER DO, RUBINA K 376.81 Orbital Cysts 07/04/2009 FLETCHER DO, RUBINA K 388.70 Otalgia, Unspecified 07/04/2009 FLETCHER DO, RUBINA K 729.5 Pain In Limb 07/04/2009 FLETCHER DO, RUBINA K 793.89 Other (abnormal) Findings On Radiological Examination Of Breast 07/04/2009 FLETCHER DO, RUBINA K 376.81 Orbital Cysts 07/04/2009 FLETCHER DO, RUBINA K 388.70 Otalgia, Unspecified 07/04/2009 FLETCHER DO, RUBINA K 729.5 Pain In Limb 07/04/2009 FLETCHER DO, RUBINA K 793.89 Other (abnormal) Findings On Radiological Examination Of Breast 07/04/2009 DEBI FURNITURE DETAILER, CINDY S 376.81 Orbital Cysts 07/04/2009 DEBI FURNITURE DETAILER, CINDY S 388.70 Otalgia, Unspecified 07/04/2009 DEBI FURNITURE DETAILER, CINDY S 729.5 Pain In Limb 07/04/2009 DEBI FURNITURE DETAILER, CINDY S 793.89 Other (abnormal) Findings On Radiological Examination Of Breast 07/04/2009 DEBI FURNITURE DETAILER, CINDY S 376.81 Orbital Cysts 07/04/2009 DEBI FURNITURE DETAILER, CINDY S 388.70 Otalgia, Unspecified 07/04/2009 DEBI FURNITURE DETAILER, CINDY S 729.5 Pain In Limb 07/04/2009 DEBI FURNITURE DETAILER, CINDY S 793.89 Other (abnormal) Findings On Radiological Examination Of Breast 07/04/2009 DEBI FURNITURE DETAILER, CINDY S 376.81 Orbital Cysts 07/04/2009 DEBI FURNITURE DETAILER, CINDY S 388.70 Otalgia, Unspecified 07/04/2009 DEBI FURNITURE DETAILER, CINDY S 729.5 Pain In Limb 07/04/2009 DEBI FURNITURE DETAILER, CINDY S 793.89 Other (abnormal) Findings On Radiological Examination Of Breast 07/04/2009 DEBI FURNITURE DETAILER, CINDY S 376.81 Orbital Cysts 07/04/2009 DEBI FURNITURE DETAILER, CINDY S 388.70 Otalgia, Unspecified 07/04/2009 DEBI FURNITURE DETAILER, CINDY S 729.5 Pain In Limb 07/04/2009 DEBI FURNITURE DETAILER, CINDY S 793.89 Other (abnormal) Findings On Radiological Examination Of Breast 07/04/2009 DEBI FURNITURE DETAILER, CINDY S 376.81 Orbital Cysts 07/04/2009 DEBI FURNITURE DETAILER, CINDY S 388.70 Otalgia, Unspecified 07/04/2009 DEBI FURNITURE DETAILER, CINDY S 729.5 Pain In Limb 07/04/2009 DEBI FURNITURE DETAILER, CINDY S 793.89 Other (abnormal) Findings On Radiological Examination Of Breast 07/04/2009 DEBI FURNITURE DETAILER, CINDY S 376.81 Orbital Cysts 07/04/2009 DEBI FURNITURE DETAILER, CINDY S 388.70 Otalgia, Unspecified 07/04/2009 DEBI FURNITURE DETAILER, CINDY S 729.5 Pain In Limb 07/04/2009 DEBI FURNITURE DETAILER, CINDY S 793.89 Other (abnormal) Findings On Radiological Examination Of Breast 07/04/2009 DEBI FURNITURE DETAILER, CINDY S 376.81 Orbital Cysts 07/04/2009 DEBI FURNITURE DETAILER, CINDY S 388.70 Otalgia, Unspecified 07/04/2009 DEBI FURNITURE DETAILER, CINDY S 729.5 Pain In Limb 07/04/2009 DEBI FURNITURE DETAILER, CINDY S 793.89 Other (abnormal) Findings On Radiological Examination Of Breast 07/04/2009 DEBI FURNITURE DETAILER, CINDY S 376.81 Orbital Cysts 07/04/2009 DEBI FURNITURE DETAILER, CINDY S 388.70 Otalgia, Unspecified 07/04/2009 DEBI FURNITURE DETAILER, CINDY S 729.5 Pain In Limb 07/04/2009 DEBI FURNITURE DETAILER, CINDY S 793.89 Other (abnormal) Findings On Radiological Examination Of Breast 07/04/2009 MARLENA FURNITURE DETAILER, ERIC A 376.81 Orbital Cysts 07/04/2009 MARLENA FURNITURE DETAILER, ERIC A 388.70 Otalgia, Unspecified 07/04/2009 MARLENA FURNITURE DETAILER, REIC A 729.5 Pain In Limb 07/04/2009 MARLENA FURNITURE DETAILER, ERIC A 793.89 Other (abnormal) Findings On Radiological Examination Of Breast 07/04/2009 ARTEM BRUNERN ROSIO T 376.81 Orbital Cysts 07/04/2009 ARTEM BRUNERN, ROSIO T 388.70 Otalgia, Unspecified 07/04/2009 ARTEM FURNITURE DETAILER, ROSIO T 729.5 Pain In Limb 07/04/2009 ARTEM FURNITURE DETAILER, ROSIO T 793.89 Other (abnormal) Findings On Radiological Examination Of Breast 07/04/2009 ARTEM FURNITURE DETAILER, ROSIO T 376.81 Orbital Cysts 07/04/2009 ARTEM BRUNERN, ROSIO T 388.70 Otalgia, Unspecified 07/04/2009 ARTEM BRUNERN ROSIO T 729.5 Pain In Limb 07/04/2009 ARTEM FURNITURE DETAILERROSIO T 793.89 Other (abnormal) Findings On Radiological Examination Of Breast 07/04/2009 DEBI FURNITURE DETAILER, CINDY S 376.81 Orbital Cysts 07/04/2009 DEBI FURNITURE DETAILER, CINDY S 388.70 Otalgia, Unspecified 07/04/2009 DEBI FURNITURE DETAILER, CINDY S 729.5 Pain In Limb 07/04/2009 DEBI FURNITURE DETAILER, CINDY S 793.89 Other (abnormal) Findings On Radiological Examination Of Breast 07/04/2009 DEBI FURNITURE DETAILER, CINDY S 376.81 Orbital Cysts 07/04/2009 DEBI FURNITURE DETAILER, CINDY S 388.70 Otalgia, Unspecified 07/04/2009 DEBI FURNITURE DETAILER, CINDY S 729.5 Pain In Limb 07/04/2009 DEBI FURNITURE DETAILER, CINDY S 793.89 Other (abnormal) Findings On Radiological Examination Of Breast 07/04/2009 DEBI FURNITURE DETAILER, CINDY S 376.81 Orbital Cysts 07/04/2009 DEBI FURNITURE DETAILER, CINDY S 388.70 Otalgia, Unspecified 07/04/2009 DEBI FURNITURE DETAILER, CINDY S 729.5 Pain In Limb 07/04/2009 DEBI FURNITURE DETAILER, CINDY S 793.89 Other (abnormal) Findings On Radiological Examination Of Breast 07/04/2009 DEBI FURNITURE DETAILER, CINDY S 376.81 Orbital Cysts 07/04/2009 DEBI FURNITURE DETAILER, CINDY S 388.70 Otalgia, Unspecified 07/04/2009 DEBI FURNITURE DETAILER, CINDY S 729.5 Pain In Limb 07/04/2009 DEBI FURNITURE DETAILER, CINDY S 793.89 Other (abnormal) Findings On Radiological Examination Of Breast 07/04/2009 DEBI FURNITURE DETAILER, CINDY S 376.81 Orbital Cysts 07/04/2009 DEBI FURNITURE DETAILER, CINDY S 388.70 Otalgia, Unspecified 07/04/2009 DEBI FURNITURE DETAILER, CINDY S 729.5 Pain In Limb 07/04/2009 DEBI FURNITURE DETAILER, CINDY S 793.89 Other (abnormal) Findings On Radiological Examination Of Breast 07/04/2009 DEBI FURNITURE DETAILER, CINDY S 376.81 Orbital Cysts 07/04/2009 DEBI FURNITURE DETAILER, CINDY S 388.70 Otalgia, Unspecified 07/04/2009 DEBI FURNITURE DETAILER, CINDY S 729.5 Pain In Limb 07/04/2009 DEBI FURNITURE DETAILER, CINDY S 793.89 Other (abnormal) Findings On Radiological Examination Of Breast 07/04/2009 DEBI FURNITURE DETAILER, CINDY S 376.81 Orbital Cysts 07/04/2009 DEBI FURNITURE DETAILER, CINDY S 388.70 Otalgia, Unspecified 07/04/2009 DEBI FURNITURE DETAILER, CINDY S 729.5 Pain In Limb 07/04/2009 DEBI FURNITURE DETAILER, CINDY S 793.89 Other (abnormal) Findings On Radiological Examination Of Breast 07/04/2009 DEBI FURNITURE DETAILER, CINDY S 376.81 Orbital Cysts 07/04/2009 DEBI FURNITURE DETAILER, CINDY S 388.70 Otalgia, Unspecified 07/04/2009 DEBI FURNITURE DETAILER, CINDY S 729.5 Pain In Limb 07/04/2009 DEBI FURNITURE DETAILER, CINDY S 793.89 Other (abnormal) Findings On Radiological Examination Of Breast 07/04/2009 MARLENA FURNITURE DETAILER, ERIC A 376.81 Orbital Cysts 07/04/2009 MARLENA FURNITURE DETAILER, ERIC A 388.70 Otalgia, Unspecified 07/04/2009 MARLENA FURNITURE DETAILER, ERIC A 729.5 Pain In Limb 07/04/2009 MARLENA FURNITURE DETAILER, ERIC A 793.89 Other (abnormal) Findings On Radiological Examination Of Breast 07/04/2009 MARLENA FURNITURE DETAILER, ERIC A 376.81 Orbital Cysts 07/04/2009 MARLENA FURNITURE DETAILER, ERIC A 388.70 Otalgia, Unspecified 07/04/2009 MARLENA FURNITURE DETAILER, ERIC A 729.5 Pain In Limb 07/04/2009 MARLENA FURNITURE DETAILER, ERIC A 793.89 Other (abnormal) Findings On Radiological Examination Of Breast 07/04/2009 DEBI FURNITURE DETAILER, CINDY S 376.81 Orbital Cysts 07/04/2009 DEBI FURNITURE DETAILER, CINDY S 388.70 Otalgia, Unspecified 07/04/2009 DEBI FURNITURE DETAILER, CINDY S 729.5 Pain In Limb 07/04/2009 DEBI FURNITURE DETAILER, CINDY S 793.89 Other (abnormal) Findings On Radiological Examination Of Breast 07/04/2009 MARLENA FURNITURE DETAILER, ERIC A 376.81 Orbital Cysts 07/04/2009 MARLENA FURNITURE DETAILER, ERIC A 388.70 Otalgia, Unspecified 07/04/2009 MARLENA FURNITURE DETAILER, ERIC A 729.5 Pain In Limb 07/04/2009 MARLENA FURNITURE DETAILER, ERIC A 793.89 Other (abnormal) Findings On Radiological Examination Of Breast 07/04/2009 DEBI FURNITURE DETAILER, CINDY S 376.81 Orbital Cysts 07/04/2009 DEBI FURNITURE DETAILER, CINDY S 388.70 Otalgia, Unspecified 07/04/2009 DEBI FURNITURE DETAILER, CINDY S 729.5 Pain In Limb 07/04/2009 DEBI FURNITURE DETAILER, CINDY S 793.89 Other (abnormal) Findings On Radiological Examination Of Breast 10/20/2009 DEBI FURNITURE DETAILER, CINDY S 465.9 Acute Upper Respiratory Infections Of Unspecified Site 10/20/2009 DEBI FURNITURE DETAILER, CINDY S 465.9 Acute Upper Respiratory Infections Of Unspecified Site 10/20/2009 DEBI FURNITURE DETAILER, CINDY S 465.9 Acute Upper Respiratory Infections Of Unspecified Site 10/20/2009 465.9 Acute Upper Respiratory Infections Of Unspecified Site 10/20/2009 RUBINA FLETCHER DO 465.9 Acute Upper Respiratory Infections Of Unspecified Site 10/20/2009 465.9 Acute Upper Respiratory Infections Of Unspecified Site 10/20/2009 465.9 Acute Upper Respiratory Infections Of Unspecified Site 10/20/2009 465.9 Acute Upper Respiratory Infections Of Unspecified Site 10/20/2009 BENTLEY SOLIZ MD 465.9 Acute Upper Respiratory Infections Of Unspecified Site 10/20/2009 COURTNEY MACARIO APRN 465.9 Acute Upper Respiratory Infections Of Unspecified Site 10/20/2009 DEBI BRUNERN, CINDY S 465.9 Acute Upper Respiratory Infections Of Unspecified Site 10/20/2009 FLETCHER DO, RUBINA K 465.9 Acute Upper Respiratory Infections Of Unspecified Site 10/20/2009 FLETCHER DO, RUBINA K 465.9 Acute Upper Respiratory Infections Of Unspecified Site 10/20/2009 DEBI FURNITURE DETAILER, CINDY S 465.9 Acute Upper Respiratory Infections Of Unspecified Site 10/20/2009 DEBI FURNITURE DETAILER, CINDY S 465.9 Acute Upper Respiratory Infections Of Unspecified Site 10/20/2009 DEBI FURNITURE DETAILER, CINDY S 465.9 Acute Upper Respiratory Infections Of Unspecified Site 10/20/2009 DEBI FURNITURE DETAILER, CINDY S 465.9 Acute Upper Respiratory Infections Of Unspecified Site 10/20/2009 DEBI FURNITURE DETAILER, CINDY S 465.9 Acute Upper Respiratory Infections Of Unspecified Site 10/20/2009 DEBI FURNITURE DETAILER, CINDY S 465.9 Acute Upper Respiratory Infections Of Unspecified Site 10/20/2009 DEBI FURNITURE DETAILER, CINDY S 465.9 Acute Upper Respiratory Infections Of Unspecified Site 10/20/2009 DEBI FURNITURE DETAILER, CINDY S 465.9 Acute Upper Respiratory Infections Of Unspecified Site 10/20/2009 MARLENA FURNITURE DETAILER, ERIC A 465.9 Acute Upper Respiratory Infections Of Unspecified Site 10/20/2009 ARTEM FURNITURE DETAILER, ROSIO T 465.9 Acute Upper Respiratory Infections Of Unspecified Site 10/20/2009 ARTEM FURNITURE DETAILER, ROSIO T 465.9 Acute Upper Respiratory Infections Of Unspecified Site 10/20/2009 DEBI FURNITURE DETAILER, CINDY S 465.9 Acute Upper Respiratory Infections Of Unspecified Site 10/20/2009 DEBI FURNITURE DETAILER, CINDY S 465.9 Acute Upper Respiratory Infections Of Unspecified Site 10/20/2009 DEBI FURNITURE DETAILER, CINDY S 465.9 Acute Upper Respiratory Infections Of Unspecified Site 10/20/2009 DEBI FURNITURE DETAILER, CINDY S 465.9 Acute Upper Respiratory Infections Of Unspecified Site 10/20/2009 DEBI FURNITURE DETAILER, CINDY S 465.9 Acute Upper Respiratory Infections Of Unspecified Site 10/20/2009 DEBI FURNITURE DETAILER, CINDY S 465.9 Acute Upper Respiratory Infections Of Unspecified Site 10/20/2009 DEBI FURNITURE DETAILER, CINDY S 465.9 Acute Upper Respiratory Infections Of Unspecified Site 10/20/2009 DEBI FURNITURE DETAILER, CINDY S 465.9 Acute Upper Respiratory Infections Of Unspecified Site 10/20/2009 MARLENA FURNITURE DETAILER, ERIC A 465.9 Acute Upper Respiratory Infections Of Unspecified Site 10/20/2009 MARLENA FURNITURE DETAILER, ERIC A 465.9 Acute Upper Respiratory Infections Of Unspecified Site 10/20/2009 DEBI FURNITURE DETAILER, CINDY S 465.9 Acute Upper Respiratory Infections Of Unspecified Site 10/20/2009 MARLENA FURNITURE DETAILER, ERIC A 465.9 Acute Upper Respiratory Infections Of Unspecified Site 10/20/2009 DEBI FURNITURE DETAILER, CINDY S 465.9 Acute Upper Respiratory Infections Of Unspecified Site 04/19/2010 DEBI FURNITURE DETAILER, CINDY S 442.9 OTHER ANEURYSM OF UNSPECIFIED SITE 04/19/2010 DEBI FURNITURE DETAILER, CINDY S 442.9 OTHER ANEURYSM OF UNSPECIFIED SITE 04/19/2010 DEBI FURNITURE DETAILER, CINDY S 442.9 OTHER ANEURYSM OF UNSPECIFIED SITE 04/19/2010 442.9 OTHER ANEURYSM OF UNSPECIFIED SITE 04/19/2010 FLETCHER DO, RUBINA K 442.9 OTHER ANEURYSM OF UNSPECIFIED SITE 04/19/2010 442.9 OTHER ANEURYSM OF UNSPECIFIED SITE 04/19/2010 442.9 OTHER ANEURYSM OF UNSPECIFIED SITE 04/19/2010 442.9 OTHER ANEURYSM OF UNSPECIFIED SITE 04/19/2010 BENTLEY SOLIZ MD 442.9 OTHER ANEURYSM OF UNSPECIFIED SITE 04/19/2010 COURTNEY MACARIO APRN 442.9 OTHER ANEURYSM OF UNSPECIFIED SITE 04/19/2010 DEBI FURNITURE DETAILER, CINDY S 442.9 OTHER ANEURYSM OF UNSPECIFIED SITE 04/19/2010 FLETCHER DO, RUBINA K 442.9 OTHER ANEURYSM OF UNSPECIFIED SITE 04/19/2010 FLETCHER DO, RUBINA K 442.9 OTHER ANEURYSM OF UNSPECIFIED SITE 04/19/2010 DEBI FURNITURE DETAILER, CINDY S 442.9 OTHER ANEURYSM OF UNSPECIFIED SITE 04/19/2010 DEBI FURNITURE DETAILER, CINDY S 442.9 OTHER ANEURYSM OF UNSPECIFIED SITE 04/19/2010 DEBI FURNITURE DETAILER, CINDY S 442.9 OTHER ANEURYSM OF UNSPECIFIED SITE 04/19/2010 DEBI FURNITURE DETAILER, CINDY S 442.9 OTHER ANEURYSM OF UNSPECIFIED SITE 04/19/2010 DEBI FURNITURE DETAILER, CINDY S 442.9 OTHER ANEURYSM OF UNSPECIFIED SITE 04/19/2010 DEBI FURNITURE DETAILER, CINDY S 442.9 OTHER ANEURYSM OF UNSPECIFIED SITE 04/19/2010 DEBI FURNITURE DETAILER, CINDY S 442.9 OTHER ANEURYSM OF UNSPECIFIED SITE 04/19/2010 DEBI FURNITURE DETAILER, CINDY S 442.9 OTHER ANEURYSM OF UNSPECIFIED SITE 04/19/2010 MARLENA FURNITURE DETAILER, ERIC A 442.9 OTHER ANEURYSM OF UNSPECIFIED SITE 04/19/2010 ARTEM FURNITURE DETAILER, ROSIO T 442.9 OTHER ANEURYSM OF UNSPECIFIED SITE 04/19/2010 ARTEM FURNITURE DETAILER, ROSIO T 442.9 OTHER ANEURYSM OF UNSPECIFIED SITE 04/19/2010 DEBI FURNITURE DETAILER, CINDY S 442.9 OTHER ANEURYSM OF UNSPECIFIED SITE 04/19/2010 DEBI FURNITURE DETAILER, CINDY S 442.9 OTHER ANEURYSM OF UNSPECIFIED SITE 04/19/2010 DEBI FURNITURE DETAILER, CINDY S 442.9 OTHER ANEURYSM OF UNSPECIFIED SITE 04/19/2010 DEBI FURNITURE DETAILER, CINDY S 442.9 OTHER ANEURYSM OF UNSPECIFIED SITE 04/19/2010 DEBI FURNITURE DETAILER, CINDY S 442.9 OTHER ANEURYSM OF UNSPECIFIED SITE 04/19/2010 DEBI FURNITURE DETAILER, CINDY S 442.9 OTHER ANEURYSM OF UNSPECIFIED SITE 04/19/2010 DEBI FURNITURE DETAILER, CINDY S 442.9 OTHER ANEURYSM OF UNSPECIFIED SITE 04/19/2010 DEBI FURNITURE DETAILER, CINDY S 442.9 OTHER ANEURYSM OF UNSPECIFIED SITE 04/19/2010 MARLENA FURNITURE DETAILER, ERIC A 442.9 OTHER ANEURYSM OF UNSPECIFIED SITE 04/19/2010 MARLENA FURNITURE DETAILER, ERIC A 442.9 OTHER ANEURYSM OF UNSPECIFIED SITE 04/19/2010 DEBI FURNITURE DETAILER, CINDY S 442.9 OTHER ANEURYSM OF UNSPECIFIED SITE 04/19/2010 MARLENA FURNITURE DETAILER, ERIC A 442.9 OTHER ANEURYSM OF UNSPECIFIED SITE 04/19/2010 DEBI FURNITURE DETAILER, CINDY S 442.9 OTHER ANEURYSM OF UNSPECIFIED SITE 05/02/2010 DEBI WARD, ICNDY S 305.1 NONDEPENDENT TOBACCO USE DISORDER 05/02/2010 DEBI WARD, CINDY S 305.1 NONDEPENDENT TOBACCO USE DISORDER 05/02/2010 DEBI BRUNERN, CINDY S 305.1 NONDEPENDENT TOBACCO USE DISORDER 05/02/2010 305.1 NONDEPENDENT TOBACCO USE DISORDER 05/02/2010 FLETCHER DO, RUBINA K 305.1 NONDEPENDENT TOBACCO USE DISORDER 05/02/2010 305.1 NONDEPENDENT TOBACCO USE DISORDER 05/02/2010 305.1 NONDEPENDENT TOBACCO USE DISORDER 05/02/2010 305.1 NONDEPENDENT TOBACCO USE DISORDER 05/02/2010 BENTLEY SOLIZ MD 305.1 NONDEPENDENT TOBACCO USE DISORDER 05/02/2010 COURTNEY MACARIO APRN 305.1 NONDEPENDENT TOBACCO USE DISORDER 05/02/2010 DEBI WARD, CINDY S 305.1 NONDEPENDENT TOBACCO USE DISORDER 05/02/2010 FLETCHER DO, RUBINA K 305.1 NONDEPENDENT TOBACCO USE DISORDER 05/02/2010 FLETCHER DO, RUBINA K 305.1 NONDEPENDENT TOBACCO USE DISORDER 05/02/2010 DEBI WARD, CINDY S 305.1 NONDEPENDENT TOBACCO USE DISORDER 05/02/2010 DEBI WARD, CINDY S 305.1 NONDEPENDENT TOBACCO USE DISORDER 05/02/2010 DEBI WARD, CINDY S 305.1 NONDEPENDENT TOBACCO USE DISORDER 05/02/2010 DEBI WARD, CINDY S 305.1 NONDEPENDENT TOBACCO USE DISORDER 05/02/2010 DEBI WARD, CINDY S 305.1 NONDEPENDENT TOBACCO USE DISORDER 05/02/2010 DEBI WARD, CINDY S 305.1 NONDEPENDENT TOBACCO USE DISORDER 05/02/2010 DEBI WARD, CINDY S 305.1 NONDEPENDENT TOBACCO USE DISORDER 05/02/2010 DEBI WARD, CINDY S 305.1 NONDEPENDENT TOBACCO USE DISORDER 05/02/2010 ERIC MENDIOLA APRN 305.1 NONDEPENDENT TOBACCO USE DISORDER 05/02/2010 ROSIO MCGILL APRN 305.1 NONDEPENDENT TOBACCO USE DISORDER 05/02/2010 ROSIO MCGILL APRN 305.1 NONDEPENDENT TOBACCO USE DISORDER 05/02/2010 DEBI FURNITURE DETAILER, CINDY S 305.1 NONDEPENDENT TOBACCO USE DISORDER 05/02/2010 DEBI FURNITURE DETAILER, CINDY S 305.1 NONDEPENDENT TOBACCO USE DISORDER 05/02/2010 DEBI FURNITURE DETAILER, CINDY S 305.1 NONDEPENDENT TOBACCO USE DISORDER 05/02/2010 DEBI FURNITURE DETAILER, CINDY S 305.1 NONDEPENDENT TOBACCO USE DISORDER 05/02/2010 DEBI FURNITURE DETAILER, CINDY S 305.1 NONDEPENDENT TOBACCO USE DISORDER 05/02/2010 DEBI FURNITURE DETAILER, CINDY S 305.1 NONDEPENDENT TOBACCO USE DISORDER 05/02/2010 DEBI FURNITURE DETAILER, CINDY S 305.1 NONDEPENDENT TOBACCO USE DISORDER 05/02/2010 DEBI FURNITURE DETAILER, CINDY S 305.1 NONDEPENDENT TOBACCO USE DISORDER 05/02/2010 MARLENA FURNITURE DETAILER, ERIC A 305.1 NONDEPENDENT TOBACCO USE DISORDER 05/02/2010 MARLENA FURNITURE DETAILER, ERIC A 305.1 NONDEPENDENT TOBACCO USE DISORDER 05/02/2010 DEBI FURNITURE DETAILER, CINDY S 305.1 NONDEPENDENT TOBACCO USE DISORDER 05/02/2010 MARLENA FURNITURE DETAILER, ERIC A 305.1 NONDEPENDENT TOBACCO USE DISORDER 05/02/2010 DEBI BRUNERN, CINDY S 305.1 NONDEPENDENT TOBACCO USE DISORDER 10/27/2010 DEBI WARD, CINDY S 380.10 Infective Otitis Externa Unspecified 10/27/2010 DEBI WARD, CINDY S 380.10 Infective Otitis Externa Unspecified 10/27/2010 DEBI WARD, CINDY S 380.10 Infective Otitis Externa Unspecified 10/27/2010 380.10 Infective Otitis Externa Unspecified 10/27/2010 RUBINA FLETCHER DO 380.10 Infective Otitis Externa Unspecified 10/27/2010 380.10 Infective Otitis Externa Unspecified 10/27/2010 380.10 Infective Otitis Externa Unspecified 10/27/2010 380.10 Infective Otitis Externa Unspecified 10/27/2010 HEYDI LAMAR, BENTLEY 380.10 Infective Otitis Externa Unspecified 10/27/2010 MACARIO FURNITURE DETAILER, COURTNEY R 380.10 Infective Otitis Externa Unspecified 10/27/2010 DEBI FURNITURE DETAILER, CINDY S 380.10 Infective Otitis Externa Unspecified 10/27/2010 FLETCHER DO, RUBINA K 380.10 Infective Otitis Externa Unspecified 10/27/2010 FLETCHER DO, RUBINA K 380.10 Infective Otitis Externa Unspecified 10/27/2010 DEBI FURNITURE DETAILER, CINDY S 380.10 Infective Otitis Externa Unspecified 10/27/2010 DEBI FURNITURE DETAILER, CINDY S 380.10 Infective Otitis Externa Unspecified 10/27/2010 DEBI FURNITURE DETAILER, CINDY S 380.10 Infective Otitis Externa Unspecified 10/27/2010 DEBI FURNITURE DETAILER, CINDY S 380.10 Infective Otitis Externa Unspecified 10/27/2010 DEBI FURNITURE DETAILER, CINDY S 380.10 Infective Otitis Externa Unspecified 10/27/2010 DEBI FURNITURE DETAILER, CINDY S 380.10 Infective Otitis Externa Unspecified 10/27/2010 DEBI FURNITURE DETAILER, CINDY S 380.10 Infective Otitis Externa Unspecified 10/27/2010 DEBI FURNITURE DETAILER, CINDY S 380.10 Infective Otitis Externa Unspecified 10/27/2010 MARLENA FURNITURE DETAILER, ERIC A 380.10 Infective Otitis Externa Unspecified 10/27/2010 ARTEM FURNITURE DETAILERROSIO T 380.10 Infective Otitis Externa Unspecified 10/27/2010 ARTEM FURNITURE DETAILERROSIO T 380.10 Infective Otitis Externa Unspecified 10/27/2010 DEBI FURNITURE DETAILER, CINDY S 380.10 Infective Otitis Externa Unspecified 10/27/2010 DEBI FURNITURE DETAILER, CINDY S 380.10 Infective Otitis Externa Unspecified 10/27/2010 DEBI FURNITURE DETAILER, CINDY S 380.10 Infective Otitis Externa Unspecified 10/27/2010 DEBI FURNITURE DETAILER, CINDY S 380.10 Infective Otitis Externa Unspecified 10/27/2010 DEBI FURNITURE DETAILER, CINDY S 380.10 Infective Otitis Externa Unspecified 10/27/2010 DEBI FURNITURE DETAILER, CINDY S 380.10 Infective Otitis Externa Unspecified 10/27/2010 DEBI FURNITURE DETAILER, CINDY S 380.10 Infective Otitis Externa Unspecified 10/27/2010 DEBI FURNITURE DETAILER, CINDY S 380.10 Infective Otitis Externa Unspecified 10/27/2010 MARLENA FURNITURE DETAILER, ERIC A 380.10 Infective Otitis Externa Unspecified 10/27/2010 MARLENA FURNITURE DETAILER, ERIC A 380.10 Infective Otitis Externa Unspecified 10/27/2010 DEBI FURNITURE DETAILER, CINDY S 380.10 Infective Otitis Externa Unspecified 10/27/2010 MARLENA FURNITURE DETAILER, ERIC A 380.10 Infective Otitis Externa Unspecified 10/27/2010 DEBI FURNITURE DETAILER, CINDY S 380.10 Infective Otitis Externa Unspecified 11/01/2010 DEBI FURNITURE DETAILER, CINDY S 796.2 Elevated Blood Pressure Reading Without Diagnosis Of Hypertension 11/01/2010 DEBI FURNITURE DETAILER, CINDY S V72.31 Printer Floor Covering Assistant Exam, Routine 11/01/2010 DEBI FURNITURE DETAILERRUCHI GarciaNDA S 796.2 Elevated Blood Pressure Reading Without Diagnosis Of Hypertension 11/01/2010 RUCHI CARRERA APRNNDA S V72.31 Printer Floor Covering Assistant Exam, Routine 11/01/2010 DEBI FURNITURE DETAILERRUCHI GarciaNDA S 796.2 Elevated Blood Pressure Reading Without Diagnosis Of Hypertension 11/01/2010 DEBI FURNITURE DETAILER, CINDY S V72.31 Printer Floor Covering Assistant Exam, Routine 11/01/2010 796.2 Elevated Blood Pressure Reading Without Diagnosis Of Hypertension 11/01/2010 V72.31 Printer Floor Covering Assistant Exam, Routine 11/01/2010 RUBINA FLETCHER DO K 796.2 Elevated Blood Pressure Reading Without Diagnosis Of Hypertension 11/01/2010 RUBINA FLETCHER DO K V72.31 Printer Floor Covering Assistant Exam, Routine 11/01/2010 796.2 Elevated Blood Pressure Reading Without Diagnosis Of Hypertension 11/01/2010 V72.31 Printer Floor Covering Assistant Exam, Routine 11/01/2010 796.2 Elevated Blood Pressure Reading Without Diagnosis Of Hypertension 11/01/2010 V72.31 Printer Floor Covering Assistant Exam, Routine 11/01/2010 796.2 Elevated Blood Pressure Reading Without Diagnosis Of Hypertension 11/01/2010 V72.31 Printer Floor Covering Assistant Exam, Routine 11/01/2010 BENTLEY SOLIZ MD 796.2 Elevated Blood Pressure Reading Without Diagnosis Of Hypertension 11/01/2010 BENTLEY SOLIZ MD V72.31 Printer Floor Covering Assistant Exam, Routine 11/01/2010 MACARIO FURNITURE DETAILER, COURTNEY R 796.2 Elevated Blood Pressure Reading Without Diagnosis Of Hypertension 11/01/2010 MACARIO FURNITURE DETAILER, COURTNEY R V72.31 Printer Floor Covering Assistant Exam, Routine 11/01/2010 DEBI FURNITURE DETAILER, CINDY S 796.2 Elevated Blood Pressure Reading Without Diagnosis Of Hypertension 11/01/2010 DEBI FURNITURE DETAILER, CINDY S V72.31 Printer Floor Covering Assistant Exam, Routine 11/01/2010 FLETCHER DO, RUBINA K 796.2 Elevated Blood Pressure Reading Without Diagnosis Of Hypertension 11/01/2010 FLETCHER DO, RUBINA K V72.31 Printer Floor Covering Assistant Exam, Routine 11/01/2010 FLETCHER DO, RUBINA K 796.2 Elevated Blood Pressure Reading Without Diagnosis Of Hypertension 11/01/2010 FLETCHER DO, RUBINA K V72.31 Printer Floor Covering Assistant Exam, Routine 11/01/2010 DEBI FURNITURE DETAILER, CINDY S 796.2 Elevated Blood Pressure Reading Without Diagnosis Of Hypertension 11/01/2010 DEBI FURNITURE DETAILER, CINDY S V72.31 Printer Floor Covering Assistant Exam, Routine 11/01/2010 DEBI FURNITURE DETAILER, CINDY S 796.2 Elevated Blood Pressure Reading Without Diagnosis Of Hypertension 11/01/2010 DEBI FURNITURE DETAILER, CINDY S V72.31 Printer Floor Covering Assistant Exam, Routine 11/01/2010 DEBI FURNITURE DETAILER, CINDY S 796.2 Elevated Blood Pressure Reading Without Diagnosis Of Hypertension 11/01/2010 DEBI FURNITURE DETAILER, CINDY S V72.31 Printer Floor Covering Assistant Exam, Routine 11/01/2010 DEBI FURNITURE DETAILER, CINDY S 796.2 Elevated Blood Pressure Reading Without Diagnosis Of Hypertension 11/01/2010 DEBI FURNITURE DETAILER, CINDY S V72.31 Printer Floor Covering Assistant Exam, Routine 11/01/2010 DEBI FURNITURE DETAILER, CINDY S 796.2 Elevated Blood Pressure Reading Without Diagnosis Of Hypertension 11/01/2010 DEBI FURNITURE DETAILER, CINDY S V72.31 Printer Floor Covering Assistant Exam, Routine 11/01/2010 DEBI FURNITURE DETAILER, CINDY S 796.2 Elevated Blood Pressure Reading Without Diagnosis Of Hypertension 11/01/2010 [employer]BI FURNITURE DETAILER, CINDY S V72.31 Printer Floor Covering Assistant Exam, Routine 11/01/2010 [employer]BI FURNITURE DETAILER, CINDY S 796.2 Elevated Blood Pressure Reading Without Diagnosis Of Hypertension 11/01/2010 [employer]BI FURNITURE DETAILER, CINDY S V72.31 Printer Floor Covering Assistant Exam, Routine 11/01/2010 [employer]BI FURNITURE DETAILER, CINDY S 796.2 Elevated Blood Pressure Reading Without Diagnosis Of Hypertension 11/01/2010 [employer] FURNITURE DETAILER, CINDY S V72.31 Printer Floor Covering Assistant Exam, Routine 11/01/2010 MARLENA FURNITURE DETAILER, ERIC A 796.2 Elevated Blood Pressure Reading Without Diagnosis Of Hypertension 11/01/2010 MARLENA FURNITURE DETAILER, ERIC A V72.31 Printer Floor Covering Assistant Exam, Routine 11/01/2010 [employer]EM FURNITURE DETAILER, ROSIO T 796.2 Elevated Blood Pressure Reading Without Diagnosis Of Hypertension 11/01/2010 [employer]EM FURNITURE DETAILER, ROSIO T V72.31 Printer Floor Covering Assistant Exam, Routine 11/01/2010 ARTEM FURNITURE DETAILER, ROSIO T 796.2 Elevated Blood Pressure Reading Without Diagnosis Of Hypertension 11/01/2010 ARTEM FURNITURE DETAILER, ROSIO T V72.31 Printer Floor Covering Assistant Exam, Routine 11/01/2010 DEBI FURNITURE DETAILER, CINDY S 796.2 Elevated Blood Pressure Reading Without Diagnosis Of Hypertension 11/01/2010 DEBI FURNITURE DETAILER, CNIDY S V72.31 Printer Floor Covering Assistant Exam, Routine 11/01/2010 DEBI FURNITURE DETAILER, CINDY S 796.2 Elevated Blood Pressure Reading Without Diagnosis Of Hypertension 11/01/2010 DEBI FURNITURE DETAILER, CINDY S V72.31 Printer Floor Covering Assistant Exam, Routine 11/01/2010 DEBI FURNITURE DETAILER, CINDY S 796.2 Elevated Blood Pressure Reading Without Diagnosis Of Hypertension 11/01/2010 DEBI FURNITURE DETAILER, CINDY S V72.31 Printer Floor Covering Assistant Exam, Routine 11/01/2010 DEBI FURNITURE DETAILER, CINDY S 796.2 Elevated Blood Pressure Reading Without Diagnosis Of Hypertension 11/01/2010 DEBI FURNITURE DETAILER, CINDY S V72.31 Printer Floor Covering Assistant Exam, Routine 11/01/2010 DEBI FURNITURE DETAILER, CINDY S 796.2 Elevated Blood Pressure Reading Without Diagnosis Of Hypertension 11/01/2010 DEBI FURNITURE DETAILER, CINDY S V72.31 Printer Floor Covering Assistant Exam, Routine 11/01/2010 DEBI FURNITURE DETAILER, CINDY S 796.2 Elevated Blood Pressure Reading Without Diagnosis Of Hypertension 11/01/2010 DEBI FURNITURE DETAILER, CINDY S V72.31 Printer Floor Covering Assistant Exam, Routine 11/01/2010 DEBI FURNITURE DETAILER, CINDY S 796.2 Elevated Blood Pressure Reading Without Diagnosis Of Hypertension 11/01/2010 DEBI FURNITURE DETAILER, CINDY S V72.31 Printer Floor Covering Assistant Exam, Routine 11/01/2010 DEBI FURNITURE DETAILER, CINDY S 796.2 Elevated Blood Pressure Reading Without Diagnosis Of Hypertension 11/01/2010 DEBI FURNITURE DETAILER, CINDY S V72.31 Printer Floor Covering Assistant Exam, Routine 11/01/2010 MARLENA FURNITURE DETAILER, ERIC A 796.2 Elevated Blood Pressure Reading Without Diagnosis Of Hypertension 11/01/2010 MARLENA FURNITURE DETAILER, ERIC A V72.31 Printer Floor Covering Assistant Exam, Routine 11/01/2010 MARLENA FURNITURE DETAILER, ERIC A 796.2 Elevated Blood Pressure Reading Without Diagnosis Of Hypertension 11/01/2010 MARLENA FURNITURE DETAILER, ERIC A V72.31 Printer Floor Covering Assistant Exam, Routine 11/01/2010 DEBI FURNITURE DETAILER, CINDY S 796.2 Elevated Blood Pressure Reading Without Diagnosis Of Hypertension 11/01/2010 DEBI FURNITURE DETAILER, CINDY S V72.31 Printer Floor Covering Assistant Exam, Routine 11/01/2010 MARLENA FURNITURE DETAILER, ERIC A 796.2 Elevated Blood Pressure Reading Without Diagnosis Of Hypertension 11/01/2010 MARLENA FURNITURE DETAILER, ERIC A V72.31 Printer Floor Covering Assistant Exam, Routine 11/01/2010 DEBI FURNITURE DETAILER, CINDY S 796.2 Elevated Blood Pressure Reading Without Diagnosis Of Hypertension 11/01/2010 DEBI FURNITURE DETAILER, CINDY S V72.31 Printer Floor Covering Assistant Exam, Routine 03/08/2011 DEBI FURNITURE DETAILER, CINDY S NODX NO DIAGNOSIS 03/08/2011 DEBI FURNITURE DETAILER CINDY S NODX NO DIAGNOSIS 03/08/2011 DEBI FURNITURE DETAILER, CINDY S NODX NO DIAGNOSIS 03/08/2011 NODX NO DIAGNOSIS 03/08/2011 RUBINA FLETCHER DO NODX NO DIAGNOSIS 03/08/2011 NODX NO DIAGNOSIS 03/08/2011 NODX NO DIAGNOSIS 03/08/2011 NODX NO DIAGNOSIS 03/08/2011 HEYDI LAMAR, BENTLEY NODX NO DIAGNOSIS 03/08/2011 COURTNEY MACARIO APRN NODX NO DIAGNOSIS 03/08/2011 DEBI FURNITURE DETAILER, CINDY S NODX NO DIAGNOSIS 03/08/2011 FLETCHER DO, RUBINA K NODX NO DIAGNOSIS 03/08/2011 FLETCHER DO, RUBINA K NODX NO DIAGNOSIS 03/08/2011 DEBI FURNITURE DETAILER, CINDY S NODX NO DIAGNOSIS 03/08/2011 DEIB FURNITURE DETAILER, CINDY S NODX NO DIAGNOSIS 03/08/2011 DEBI FURNITURE DETAILER, CINDY S NODX NO DIAGNOSIS 03/08/2011 DEBI FURNITURE DETAILER, CINDY S NODX NO DIAGNOSIS 03/08/2011 DEBI FURNITURE DETAILER, CINDY S NODX NO DIAGNOSIS 03/08/2011 DEBI FURNITURE DETAILER, CINDY S NODX NO DIAGNOSIS 03/08/2011 DEBI FURNITURE DETAILER, CINDY S NODX NO DIAGNOSIS 03/08/2011 DEBI FURNITURE DETAILER, CINDY S NODX NO DIAGNOSIS 03/08/2011 MARLENA FURNITURE DETAILER, ERIC A NODX NO DIAGNOSIS 03/08/2011 ARTEM FURNITURE DETAILER, ROSIO Anderson NODX NO DIAGNOSIS 03/08/2011 ARTEM FURNITURE DETAILER, ROSIO T NODX NO DIAGNOSIS 03/08/2011 DEBI FURNITURE DETAILER, CINDY S NODX NO DIAGNOSIS 03/08/2011 DEBI FURNITURE DETAILER, CINDY S NODX NO DIAGNOSIS 03/08/2011 DEBI FURNITURE DETAILER, CINDY S NODX NO DIAGNOSIS 03/08/2011 DEBI FURNITURE DETAILER, CINDY S NODX NO DIAGNOSIS 03/08/2011 DEBI FURNITURE DETAILER, CINDY S NODX NO DIAGNOSIS 03/08/2011 DEBI FURNITURE DETAILER, CINDY S NODX NO DIAGNOSIS 03/08/2011 DEBI FURNITURE DETAILER, CINDY S NODX NO DIAGNOSIS 03/08/2011 DEBI FURNITURE DETAILER, CINDY S NODX NO DIAGNOSIS 03/08/2011 MARLENA FURNITURE DETAILER, ERIC A NODX NO DIAGNOSIS 03/08/2011 MARLENA FURNITURE DETAILER, ERIC A NODX NO DIAGNOSIS 03/08/2011 DEBI FURNITURE DETAILER, CINDY S NODX NO DIAGNOSIS 03/08/2011 MARLENA FURNITURE DETAILER, ERIC A NODX NO DIAGNOSIS 03/08/2011 DEBI FURNITURE DETAILER, CINDY S NODX NO DIAGNOSIS 03/13/2011 DEBI FURNITURE DETAILER, CINDY S 278.02 OVERWEIGHT 03/13/2011 DEBI FURNITURE DETAILER, CINDY S 356.9 UNSPECIFIED IDIOPATHIC PERIPHERAL NEUROPATHY 03/13/2011 DEBI FURNITURE DETAILER, CINDY S 278.02 OVERWEIGHT 03/13/2011 DEBI FURNITURE DETAILER, CINDY S 356.9 UNSPECIFIED IDIOPATHIC PERIPHERAL NEUROPATHY 03/13/2011 DEBI FURNITURE DETAILER, CINDY S 278.02 OVERWEIGHT 03/13/2011 DEBI FURNITURE DETAILER, CINDY S 356.9 UNSPECIFIED IDIOPATHIC PERIPHERAL NEUROPATHY 03/13/2011 278.02 OVERWEIGHT 03/13/2011 356.9 UNSPECIFIED IDIOPATHIC PERIPHERAL NEUROPATHY 03/13/2011 FLETCHER DO, RUBINA K 278.02 OVERWEIGHT 03/13/2011 FLETCHER DO, RUBINA K 356.9 UNSPECIFIED IDIOPATHIC PERIPHERAL NEUROPATHY 03/13/2011 278.02 OVERWEIGHT 03/13/2011 356.9 UNSPECIFIED IDIOPATHIC PERIPHERAL NEUROPATHY 03/13/2011 278.02 OVERWEIGHT 03/13/2011 356.9 UNSPECIFIED IDIOPATHIC PERIPHERAL NEUROPATHY 03/13/2011 278.02 OVERWEIGHT 03/13/2011 356.9 UNSPECIFIED IDIOPATHIC PERIPHERAL NEUROPATHY 03/13/2011 BENTLEY SOLIZ MD 278.02 OVERWEIGHT 03/13/2011 BENTLEY SOLIZ MD 356.9 UNSPECIFIED IDIOPATHIC PERIPHERAL NEUROPATHY 03/13/2011 AMIRAH WARD, COURTNEY R 278.02 OVERWEIGHT 03/13/2011 AMIRAH WARD COURTNEY R 356.9 UNSPECIFIED IDIOPATHIC PERIPHERAL NEUROPATHY 03/13/2011 DEBI WARD CINDY S 278.02 OVERWEIGHT 03/13/2011 DEBI WARD, CINDY S 356.9 UNSPECIFIED IDIOPATHIC PERIPHERAL NEUROPATHY 03/13/2011 FLETCHER DO, RUBINA K 278.02 OVERWEIGHT 03/13/2011 FLETCHER DO, RUBINA K 356.9 UNSPECIFIED IDIOPATHIC PERIPHERAL NEUROPATHY 03/13/2011 FLETCHER DO, RUBINA K 278.02 OVERWEIGHT 03/13/2011 FLETCHER DO, RUBINA K 356.9 UNSPECIFIED IDIOPATHIC PERIPHERAL NEUROPATHY 03/13/2011 DEBI WARD, CINDY S 278.02 OVERWEIGHT 03/13/2011 DEBI FURNITURE DETAILER, CINDY S 356.9 UNSPECIFIED IDIOPATHIC PERIPHERAL NEUROPATHY 03/13/2011 DEBI BRUNERN, CINDY S 278.02 OVERWEIGHT 03/13/2011 DEBI BRUNERN, CINDY S 356.9 UNSPECIFIED IDIOPATHIC PERIPHERAL NEUROPATHY 03/13/2011 DEBI FURNITURE DETAILER, CINDY S 278.02 OVERWEIGHT 03/13/2011 DEBI FURNITURE DETAILER, CINDY S 356.9 UNSPECIFIED IDIOPATHIC PERIPHERAL NEUROPATHY 03/13/2011 DEBI FURNITURE DETAILER, CINDY S 278.02 OVERWEIGHT 03/13/2011 DEBI FURNITURE DETAILER, CINDY S 356.9 UNSPECIFIED IDIOPATHIC PERIPHERAL NEUROPATHY 03/13/2011 DEBI FURNITURE DETAILER, CINDY S 278.02 OVERWEIGHT 03/13/2011 DEBI FURNITURE DETAILER, CINDY S 356.9 UNSPECIFIED IDIOPATHIC PERIPHERAL NEUROPATHY 03/13/2011 DEBI FURNITURE DETAILER, CINDY S 278.02 OVERWEIGHT 03/13/2011 DEBI FURNITURE DETAILER, CINDY S 356.9 UNSPECIFIED IDIOPATHIC PERIPHERAL NEUROPATHY 03/13/2011 DEBI FURNITURE DETAILER, CINDY S 278.02 OVERWEIGHT 03/13/2011 DEBI FURNITURE DETAILER, CINDY S 356.9 UNSPECIFIED IDIOPATHIC PERIPHERAL NEUROPATHY 03/13/2011 DBEI FURNITURE DETAILER, CINDY S 278.02 OVERWEIGHT 03/13/2011 DEBI FURNITURE DETAILER, CINDY S 356.9 UNSPECIFIED IDIOPATHIC PERIPHERAL NEUROPATHY 03/13/2011 MARLENA FURNITURE DETAILER, ERIC A 278.02 OVERWEIGHT 03/13/2011 MARLENA FURNITURE DETAILER, ERIC A 356.9 UNSPECIFIED IDIOPATHIC PERIPHERAL NEUROPATHY 03/13/2011 ARTEM FURNITURE DETAILER, ROSIO T 278.02 OVERWEIGHT 03/13/2011 ARTEM FURNITURE DETAILER, ROSIO T 356.9 UNSPECIFIED IDIOPATHIC PERIPHERAL NEUROPATHY 03/13/2011 ARTEM FURNITURE DETAILER, ROSIO T 278.02 OVERWEIGHT 03/13/2011 ARTEM FURNITURE DETAILER, ROSIO T 356.9 UNSPECIFIED IDIOPATHIC PERIPHERAL NEUROPATHY 03/13/2011 DEBI FURNITURE DETAILER, CINDY S 278.02 OVERWEIGHT 03/13/2011 DEBI FURNITURE DETAILER, CINDY S 356.9 UNSPECIFIED IDIOPATHIC PERIPHERAL NEUROPATHY 03/13/2011 DEBI FURNITURE DETAILER, CINDY S 278.02 OVERWEIGHT 03/13/2011 DEBI FURNITURE DETAILER, CINDY S 356.9 UNSPECIFIED IDIOPATHIC PERIPHERAL NEUROPATHY 03/13/2011 DEBI FURNITURE DETAILER, CINDY S 278.02 OVERWEIGHT 03/13/2011 DEBI FURNITURE DETAILER, CINDY S 356.9 UNSPECIFIED IDIOPATHIC PERIPHERAL NEUROPATHY 03/13/2011 DEBI FURNITURE DETAILER, CINDY S 278.02 OVERWEIGHT 03/13/2011 DEBI FURNITURE DETAILER, CINDY S 356.9 UNSPECIFIED IDIOPATHIC PERIPHERAL NEUROPATHY 03/13/2011 DEBI FURNITURE DETAILER, CINDY S 278.02 OVERWEIGHT 03/13/2011 DEBI FURNITURE DETAILER, CINDY S 356.9 UNSPECIFIED IDIOPATHIC PERIPHERAL NEUROPATHY 03/13/2011 DEBI FURNITURE DETAILER, CINDY S 278.02 OVERWEIGHT 03/13/2011 DEBI FURNITURE DETAILER, CINDY S 356.9 UNSPECIFIED IDIOPATHIC PERIPHERAL NEUROPATHY 03/13/2011 DEBI FURNITURE DETAILER, CINDY S 278.02 OVERWEIGHT 03/13/2011 DEBI FURNITURE DETAILER, CINDY S 356.9 UNSPECIFIED IDIOPATHIC PERIPHERAL NEUROPATHY 03/13/2011 DEBI FURNITURE DETAILER, CINDY S 278.02 OVERWEIGHT 03/13/2011 DEBI FURNITURE DETAILER, CINDY S 356.9 UNSPECIFIED IDIOPATHIC PERIPHERAL NEUROPATHY 03/13/2011 MARLENA FURNITURE DETAILER, ERIC A 278.02 OVERWEIGHT 03/13/2011 MARLENA FURNITURE DETAILER, ERIC A 356.9 UNSPECIFIED IDIOPATHIC PERIPHERAL NEUROPATHY 03/13/2011 MARLENA FURNITURE DETAILER, ERIC A 278.02 OVERWEIGHT 03/13/2011 MARLENA FURNITURE DETAILER, ERIC A 356.9 UNSPECIFIED IDIOPATHIC PERIPHERAL NEUROPATHY 03/13/2011 DEBI FURNITURE DETAILER, CINDY S 278.02 OVERWEIGHT 03/13/2011 DEBI FURNITURE DETAILER, CINDY S 356.9 UNSPECIFIED IDIOPATHIC PERIPHERAL NEUROPATHY 03/13/2011 MARLENA FURNITURE DETAILER, ERIC A 278.02 OVERWEIGHT 03/13/2011 MARLENA FURNITURE DETAILER, ERIC A 356.9 UNSPECIFIED IDIOPATHIC PERIPHERAL NEUROPATHY 03/13/2011 DEBI FURNITURE DETAILER, CINDY S 278.02 OVERWEIGHT 03/13/2011 DEBI FURNITURE DETAILER, CINDY S 356.9 UNSPECIFIED IDIOPATHIC PERIPHERAL NEUROPATHY 07/02/2011 DEBI FURNITURE DETAILER, CINDY S 785.6 ENLARGEMENT OF LYMPH NODES 07/02/2011 DEBI FURNITURE DETAILER, CINDY S 785.6 ENLARGEMENT OF LYMPH NODES 07/02/2011 DEBI FURNITURE DETAILER, CINDY S 785.6 ENLARGEMENT OF LYMPH NODES 07/02/2011 785.6 ENLARGEMENT OF LYMPH NODES 07/02/2011 RBUINA FLETCHER DO 785.6 ENLARGEMENT OF LYMPH NODES 07/02/2011 785.6 ENLARGEMENT OF LYMPH NODES 07/02/2011 785.6 ENLARGEMENT OF LYMPH NODES 07/02/2011 785.6 ENLARGEMENT OF LYMPH NODES 07/02/2011 HEYDI LAMAR, BENTLEY 785.6 ENLARGEMENT OF LYMPH NODES 07/02/2011 AMIRAH FURNITURE DETAILER, COURTNEY Turner 785.6 ENLARGEMENT OF LYMPH NODES 07/02/2011 DEBI FURNITURE DETAILER, CINDY S 785.6 ENLARGEMENT OF LYMPH NODES 07/02/2011 FLETCHER DO, RUBINA K 785.6 ENLARGEMENT OF LYMPH NODES 07/02/2011 FLETCHER DO, RUBINA K 785.6 ENLARGEMENT OF LYMPH NODES 07/02/2011 DEBI FURNITURE DETAILER, CINDY S 785.6 ENLARGEMENT OF LYMPH NODES 07/02/2011 DEBI FURNITURE DETAILER, CINDY S 785.6 ENLARGEMENT OF LYMPH NODES 07/02/2011 DEBI FURNITURE DETAILER, CINDY S 785.6 ENLARGEMENT OF LYMPH NODES 07/02/2011 DEBI FURNITURE DETAILER, CINDY S 785.6 ENLARGEMENT OF LYMPH NODES 07/02/2011 DEBI FURNITURE DETAILER, CINDY S 785.6 ENLARGEMENT OF LYMPH NODES 07/02/2011 DEBI FURNITURE DETAILER, CINDY S 785.6 ENLARGEMENT OF LYMPH NODES 07/02/2011 DEBI FURNITURE DETAILER, CINDY S 785.6 ENLARGEMENT OF LYMPH NODES 07/02/2011 DEBI FURNITURE DETAILER, CINDY S 785.6 ENLARGEMENT OF LYMPH NODES 07/02/2011 MARLENA BRUNERN, ERIC A 785.6 ENLARGEMENT OF LYMPH NODES 07/02/2011 ARTEM BRUNERNROSIO T 785.6 ENLARGEMENT OF LYMPH NODES 07/02/2011 ARTEM FURNITURE DETAILERROSIO T 785.6 ENLARGEMENT OF LYMPH NODES 07/02/2011 DEBI FURNITURE DETAILER, CINDY S 785.6 ENLARGEMENT OF LYMPH NODES 07/02/2011 DEBI FURNITURE DETAILER, CINDY S 785.6 ENLARGEMENT OF LYMPH NODES 07/02/2011 DEBI FURNITURE DETAILER, CINDY S 785.6 ENLARGEMENT OF LYMPH NODES 07/02/2011 DEBI FURNITURE DETAILER, CINDY S 785.6 ENLARGEMENT OF LYMPH NODES 07/02/2011 DEBI FURNITURE DETAILER, CINDY S 785.6 ENLARGEMENT OF LYMPH NODES 07/02/2011 DEBI FURNITURE DETAILER, CINDY S 785.6 ENLARGEMENT OF LYMPH NODES 07/02/2011 DEBI FURNITURE DETAILER, ICNDY S 785.6 ENLARGEMENT OF LYMPH NODES 07/02/2011 DEBI FURNITURE DETAILER, CINDY S 785.6 ENLARGEMENT OF LYMPH NODES 07/02/2011 MARLENA FURNITURE DETAILER, ERIC A 785.6 ENLARGEMENT OF LYMPH NODES 07/02/2011 MARLENA FURNITURE DETAILER, ERIC A 785.6 ENLARGEMENT OF LYMPH NODES 07/02/2011 DEBI FURNITURE DETAILER, CINDY S 785.6 ENLARGEMENT OF LYMPH NODES 07/02/2011 MARLENA FURNITURE DETAILER, ERIC A 785.6 ENLARGEMENT OF LYMPH NODES 07/02/2011 DEBI FURNITURE DETAILER, CINDY S 785.6 ENLARGEMENT OF LYMPH NODES 07/27/2011 DEBI FURNITURE DETAILER, CINDY S 784.0 HEADACHE 07/27/2011 DEBI FURNITURE DETAILER, CINDY S 784.0 HEADACHE 07/27/2011 DEBI FURNITURE DETAILER, CINDY S 784.0 HEADACHE 07/27/2011 784.0 HEADACHE 07/27/2011 FLETCHER DO, RUBINA K 784.0 HEADACHE 07/27/2011 784.0 HEADACHE 07/27/2011 784.0 HEADACHE 07/27/2011 784.0 HEADACHE 07/27/2011 BENTLEY SOLIZ MD 784.0 HEADACHE 07/27/2011 COURTNEY MACARIO APRN 784.0 HEADACHE 07/27/2011 DEBI FURNITURE DETAILER, CINDY S 784.0 HEADACHE 07/27/2011 FLETCHER DO, RUBINA K 784.0 HEADACHE 07/27/2011 FLETCHER DO, RUBINA K 784.0 HEADACHE 07/27/2011 DEBI FURNITURE DETAILER, CINDY S 784.0 HEADACHE 07/27/2011 DEBI FURNITURE DETAILER, CINDY S 784.0 HEADACHE 07/27/2011 DEBI FURNITURE DETAILER, CINDY S 784.0 HEADACHE 07/27/2011 DEBI FURNITURE DETAILER, CINDY S 784.0 HEADACHE 07/27/2011 DEBI FURNITURE DETAILER, CINDY S 784.0 HEADACHE 07/27/2011 DEBI FURNITURE DETAILER, CINDY S 784.0 HEADACHE 07/27/2011 DEBI FURNITURE DETAILER, CINDY S 784.0 HEADACHE 07/27/2011 DEBI FURNITURE DETAILER, CINDY S 784.0 HEADACHE 07/27/2011 MARLENA FURNITURE DETAILER, ERIC A 784.0 HEADACHE 07/27/2011 ARTEM FURNITURE DETAILER, ROSIO T 784.0 HEADACHE 07/27/2011 ARTEM FURNITURE DETAILER, ROSIO T 784.0 HEADACHE 07/27/2011 DEBI FURNITURE DETAILER, CINDY S 784.0 HEADACHE 07/27/2011 DEBI FURNITURE DETAILER, CINDY S 784.0 HEADACHE 07/27/2011 DEBI FURNITURE DETAILER, CINDY S 784.0 HEADACHE 07/27/2011 DEBI FURNITURE DETAILER, CINDY S 784.0 HEADACHE 07/27/2011 DEBI FURNITURE DETAILER, CINDY S 784.0 HEADACHE 07/27/2011 DEBI FURNITURE DETAILER, CINDY S 784.0 HEADACHE 07/27/2011 DEBI FURNITURE DETAILER, CINDY S 784.0 HEADACHE 07/27/2011 DEBI FURNITURE DETAILER, CINDY S 784.0 HEADACHE 07/27/2011 MARLENA FURNITURE DETAILER, ERIC A 784.0 HEADACHE 07/27/2011 MARLENA FURNITURE DETAILER, ERIC A 784.0 HEADACHE 07/27/2011 DEBI FURNITURE DETAILER, CINDY S 784.0 HEADACHE 07/27/2011 MARLENA FURNITURE DETAILER, ERIC A 784.0 HEADACHE 07/27/2011 DEBI FURNITURE DETAILER, CINDY S 784.0 HEADACHE 08/18/2011 DEBI FURNITURE DETAILER, CINDY S 373.11 STYE (HORDEOLUM EXTERNUM) 08/18/2011 DEBI FURNITURE DETAILER, CINDY S 373.11 STYE (HORDEOLUM EXTERNUM) 08/18/2011 DEBI FURNITURE DETAILER, CINDY S 373.11 STYE (HORDEOLUM EXTERNUM) 08/18/2011 373.11 STYE (HORDEOLUM EXTERNUM) 08/18/2011 RUBINA FLETCHER DO 373.11 STYE (HORDEOLUM EXTERNUM) 08/18/2011 373.11 STYE (HORDEOLUM EXTERNUM) 08/18/2011 373.11 STYE (HORDEOLUM EXTERNUM) 08/18/2011 373.11 STYE (HORDEOLUM EXTERNUM) 08/18/2011 HEYDI LAMAR, BENTLEY 373.11 STYE (HORDEOLUM EXTERNUM) 08/18/2011 COURTNEY MACARIO APRN 373.11 STYE (HORDEOLUM EXTERNUM) 08/18/2011 DEBI FURNITURE DETAILER, CINDY S 373.11 STYE (HORDEOLUM EXTERNUM) 08/18/2011 FLETCHER DO, RUBINA K 373.11 STYE (HORDEOLUM EXTERNUM) 08/18/2011 FLETCHER DO, RUBINA K 373.11 STYE (HORDEOLUM EXTERNUM) 08/18/2011 DEBI BRUNERN, CINDY S 373.11 STYE (HORDEOLUM EXTERNUM) 08/18/2011 DEBI BRUNERN, CINDY S 373.11 STYE (HORDEOLUM EXTERNUM) 08/18/2011 DEBI WARD, CINDY S 373.11 STYE (HORDEOLUM EXTERNUM) 08/18/2011 DEBI FURNITURE DETAILER, CINDY S 373.11 STYE (HORDEOLUM EXTERNUM) 08/18/2011 DEBI BRUNERN, CINDY S 373.11 STYE (HORDEOLUM EXTERNUM) 08/18/2011 DEBI BRUNERN, CINDY S 373.11 STYE (HORDEOLUM EXTERNUM) 08/18/2011 DEBI BRUNERN, CINDY S 373.11 STYE (HORDEOLUM EXTERNUM) 08/18/2011 DEBI BRUNERN, CINDY S 373.11 STYE (HORDEOLUM EXTERNUM) 08/18/2011 ERIC MENDIOLA APRN 373.11 STYE (HORDEOLUM EXTERNUM) 08/18/2011 ROSIO MCGILL APRN 373.11 STYE (HORDEOLUM EXTERNUM) 08/18/2011 ROSIO MCGILL APRN 373.11 STYE (HORDEOLUM EXTERNUM) 08/18/2011 MARGARITA CARRERA APRNA S 373.11 STYE (HORDEOLUM EXTERNUM) 08/18/2011 DEBI WARD CINDY S 373.11 STYE (HORDEOLUM EXTERNUM) 08/18/2011 DEBI FURNITURE DETAILER, CINDY S 373.11 STYE (HORDEOLUM EXTERNUM) 08/18/2011 DEBI FURNITURE DETAILER, CINDY S 373.11 STYE (HORDEOLUM EXTERNUM) 08/18/2011 DEBI FURNITURE DETAILER, CINDY S 373.11 STYE (HORDEOLUM EXTERNUM) 08/18/2011 DEBI FURNITURE DETAILER, CINDY S 373.11 STYE (HORDEOLUM EXTERNUM) 08/18/2011 DEBI FURNITURE DETAILER, CINDY S 373.11 STYE (HORDEOLUM EXTERNUM) 08/18/2011 DEBI FURNITURE DETAILER, CINDY S 373.11 STYE (HORDEOLUM EXTERNUM) 08/18/2011 MARLENA FURNITURE DETAILER, ERIC A 373.11 STYE (HORDEOLUM EXTERNUM) 08/18/2011 MARLENA FURNITURE DETAILER, ERIC A 373.11 STYE (HORDEOLUM EXTERNUM) 08/18/2011 DEBI FURNITURE DETAILER, CINDY S 373.11 STYE (HORDEOLUM EXTERNUM) 08/18/2011 MARLENA FURNITURE DETAILER, EIRC A 373.11 STYE (HORDEOLUM EXTERNUM) 08/18/2011 DEBI FURNITURE DETAILER, CINDY S 373.11 STYE (HORDEOLUM EXTERNUM) 12/18/2011 CINDY CARRERA APRN S V76.10 BREAST SCREENING UNSPECIFIED 12/18/2011 CINDY CARRERA APRN S V76.10 BREAST SCREENING UNSPECIFIED 12/18/2011 CINDY CARRERA APRN S V76.10 BREAST SCREENING UNSPECIFIED 12/18/2011 V76.10 BREAST SCREENING UNSPECIFIED 12/18/2011 RUBINA FLETCHER DO V76.10 BREAST SCREENING UNSPECIFIED 12/18/2011 V76.10 BREAST SCREENING UNSPECIFIED 12/18/2011 V76.10 BREAST SCREENING UNSPECIFIED 12/18/2011 V76.10 BREAST SCREENING UNSPECIFIED 12/18/2011 HEYDI LAMAR, BENTLEY V76.10 BREAST SCREENING UNSPECIFIED 12/18/2011 COURTNEY MACARIO APRN V76.10 BREAST SCREENING UNSPECIFIED 12/18/2011 DEBI FURNITURE DETAILER, CINDY S V76.10 BREAST SCREENING UNSPECIFIED 12/18/2011 FLETCHER DO, RUBINA K V76.10 BREAST SCREENING UNSPECIFIED 12/18/2011 FLETCHER DO, RUBINA K V76.10 BREAST SCREENING UNSPECIFIED 12/18/2011 DEBI FURNITURE DETAILER, CINDY S V76.10 BREAST SCREENING UNSPECIFIED 12/18/2011 DEBI FURNITURE DETAILER, CINDY S V76.10 BREAST SCREENING UNSPECIFIED 12/18/2011 DEBI FURNITURE DETAILER, CINDY S V76.10 BREAST SCREENING UNSPECIFIED 12/18/2011 DEBI FURNITURE DETAILER, CINDY S V76.10 BREAST SCREENING UNSPECIFIED 12/18/2011 DEBI FURNITURE DETAILER, CINDY S V76.10 BREAST SCREENING UNSPECIFIED 12/18/2011 DEBI FURNITURE DETAILER, CINDY S V76.10 BREAST SCREENING UNSPECIFIED 12/18/2011 DEBI FURNITURE DETAILER, CINDY S V76.10 BREAST SCREENING UNSPECIFIED 12/18/2011 DEBI FURNITURE DETAILER, CINDY S V76.10 BREAST SCREENING UNSPECIFIED 12/18/2011 MARLENA FURNITURE DETAILER, ERIC A V76.10 BREAST SCREENING UNSPECIFIED 12/18/2011 ARTEM FURNITURE DETAILERROSIO T V76.10 BREAST SCREENING UNSPECIFIED 12/18/2011 ARTEM FURNITURE DETAILER ROSIO T V76.10 BREAST SCREENING UNSPECIFIED 12/18/2011 DEBI FURNITURE DETAILER, CINDY S V76.10 BREAST SCREENING UNSPECIFIED 12/18/2011 DEBI FURNITURE DETAILER, CINDY S V76.10 BREAST SCREENING UNSPECIFIED 12/18/2011 DEBI FURNITURE DETAILER, CINDY S V76.10 BREAST SCREENING UNSPECIFIED 12/18/2011 DEBI FURNITURE DETAILER, CINDY S V76.10 BREAST SCREENING UNSPECIFIED 12/18/2011 DEBI FURNITURE DETAILER, CINDY S V76.10 BREAST SCREENING UNSPECIFIED 12/18/2011 DEBI FURNITURE DETAILER, CINDY S V76.10 BREAST SCREENING UNSPECIFIED 12/18/2011 DEBI FURNITURE DETAILER, CINDY S V76.10 BREAST SCREENING UNSPECIFIED 12/18/2011 DEBI FURNITURE DETAILER, CINDY S V76.10 BREAST SCREENING UNSPECIFIED 12/18/2011 MARLENA FURNITURE DETAILER, ERIC A V76.10 BREAST SCREENING UNSPECIFIED 12/18/2011 MARLENA FURNITURE DETAILER, ERIC A V76.10 BREAST SCREENING UNSPECIFIED 12/18/2011 DEBI FURNITURE DETAILER, CINDY S V76.10 BREAST SCREENING UNSPECIFIED 12/18/2011 MARLENA FURNITURE DETAILER, ERIC A V76.10 BREAST SCREENING UNSPECIFIED 12/18/2011 DEBI FURNITURE DETAILER, CINDY S V76.10 BREAST SCREENING UNSPECIFIED 02/09/2012 DEBI FURNITURE DETAILER, CINDY S 781.3 LACK OF COORDINATION 02/09/2012 DEBI FURNITURE DETAILER, CINDY S 781.3 LACK OF COORDINATION 02/09/2012 DEBI FURNITURE DETAILER, CINDY S 781.3 LACK OF COORDINATION 02/09/2012 781.3 LACK OF COORDINATION 02/09/2012 RUBINA FLETCHER DO 781.3 LACK OF COORDINATION 02/09/2012 781.3 LACK OF COORDINATION 02/09/2012 781.3 LACK OF COORDINATION 02/09/2012 781.3 LACK OF COORDINATION 02/09/2012 BENTLEY SOLIZ MD 781.3 LACK OF COORDINATION 02/09/2012 COURTNEY MACARIO APRN 781.3 LACK OF COORDINATION 02/09/2012 DEIB FURNITURE DETAILER, CINDY S 781.3 LACK OF COORDINATION 02/09/2012 RUBINA FLETCHER DO 781.3 LACK OF COORDINATION 02/09/2012 RUBINA FLETCHER DO 781.3 LACK OF COORDINATION 02/09/2012 DEBI FURNITURE DETAILER, CINDY S 781.3 LACK OF COORDINATION 02/09/2012 DEBI FURNITURE DETAILER, CINDY S 781.3 LACK OF COORDINATION 02/09/2012 DEBI FURNITURE DETAILER, CINDY S 781.3 LACK OF COORDINATION 02/09/2012 DEBI FURNITURE DETAILER, CINDY S 781.3 LACK OF COORDINATION 02/09/2012 DEBI FURNITURE DETAILER, CINDY S 781.3 LACK OF COORDINATION 02/09/2012 DEBI FURNITURE DETAILER, CINDY S 781.3 LACK OF COORDINATION 02/09/2012 DEBI FURNITURE DETAILER, CINDY S 781.3 LACK OF COORDINATION 02/09/2012 DEBI FURNITURE DETAILER, CINDY S 781.3 LACK OF COORDINATION 02/09/2012 MARLENA FURNITURE DETAILER, ERIC A 781.3 LACK OF COORDINATION 02/09/2012 ARTEM BRUNERN, ROSIO T 781.3 LACK OF COORDINATION 02/09/2012 ARTEM BRUNERN, ROSIO T 781.3 LACK OF COORDINATION 02/09/2012 DEBI FURNITURE DETAILER, CINDY S 781.3 LACK OF COORDINATION 02/09/2012 DEBI FURNITURE DETAILER, CINDY S 781.3 LACK OF COORDINATION 02/09/2012 DEBI FURNITURE DETAILER, CINDY S 781.3 LACK OF COORDINATION 02/09/2012 DEBI FURNITURE DETAILER, CINDY S 781.3 LACK OF COORDINATION 02/09/2012 DEBI FURNITURE DETAILER, CINDY S 781.3 LACK OF COORDINATION 02/09/2012 DEBI FURNITURE DETAILER, CINDY S 781.3 LACK OF COORDINATION 02/09/2012 DEBI FURNITURE DETAILER, CINDY S 781.3 LACK OF COORDINATION 02/09/2012 DEBI FURNITURE DETAILER, CINDY S 781.3 LACK OF COORDINATION 02/09/2012 MARLENA FURNITURE DETAILER, ERIC A 781.3 LACK OF COORDINATION 02/09/2012 MARLENA FURNITURE DETAILER, ERIC A 781.3 LACK OF COORDINATION 02/09/2012 DEBI FURNITURE DETAILER, CINDY S 781.3 LACK OF COORDINATION 02/09/2012 MARLENA FURNITURE DETAILER, ERIC A 781.3 LACK OF COORDINATION 02/09/2012 DEBI FURNITURE DETAILER, CINDY S 781.3 LACK OF COORDINATION 05/15/2012 Ot 780.2 09/04/2012 782.1 RASH AND OTHER NONSPECIFIC SKIN ERUPTION 09/04/2012 788.30 URINARY INCONTINENCE UNSPECIFIED 09/04/2012 RUBINA FLETCHER DO 782.1 RASH AND OTHER NONSPECIFIC SKIN ERUPTION 09/04/2012 RUBINA FLETCHER DO 788.30 URINARY INCONTINENCE UNSPECIFIED 09/04/2012 782.1 RASH AND OTHER NONSPECIFIC SKIN ERUPTION 09/04/2012 788.30 URINARY INCONTINENCE UNSPECIFIED 09/04/2012 782.1 RASH AND OTHER NONSPECIFIC SKIN ERUPTION 09/04/2012 788.30 URINARY INCONTINENCE UNSPECIFIED 09/04/2012 782.1 RASH AND OTHER NONSPECIFIC SKIN ERUPTION 09/04/2012 788.30 URINARY INCONTINENCE UNSPECIFIED 09/04/2012 BENTLEY SOLIZ MD 782.1 RASH AND OTHER NONSPECIFIC SKIN ERUPTION 09/04/2012 BENTLEY SOLIZ MD 788.30 URINARY INCONTINENCE UNSPECIFIED 09/04/2012 HIMANSHU MACARIO APRNRICIA R 782.1 RASH AND OTHER NONSPECIFIC SKIN ERUPTION 09/04/2012 CARMELA MACARIO APRNIA R 788.30 URINARY INCONTINENCE UNSPECIFIED 09/04/2012 DEBI FURNITURE DETAILER, CINDY S 782.1 RASH AND OTHER NONSPECIFIC SKIN ERUPTION 09/04/2012 DEBI FURNITURE DETAILER, CINDY S 788.30 URINARY INCONTINENCE UNSPECIFIED 09/04/2012 FLETCHER DO, RUBINA K 782.1 RASH AND OTHER NONSPECIFIC SKIN ERUPTION 09/04/2012 FLETCHER DO, RUBINA K 788.30 URINARY INCONTINENCE UNSPECIFIED 09/04/2012 FLETCHER DO, RUBINA K 782.1 RASH AND OTHER NONSPECIFIC SKIN ERUPTION 09/04/2012 FLETCHER DO, RUBINA K 788.30 URINARY INCONTINENCE UNSPECIFIED 09/04/2012 DEBI FURNITURE DETAILER, CINDY S 782.1 RASH AND OTHER NONSPECIFIC SKIN ERUPTION 09/04/2012 DEBI FURNITURE DETAILER, CINDY S 788.30 URINARY INCONTINENCE UNSPECIFIED 09/04/2012 DEBI FURNITURE DETAILER, CINDY S 782.1 RASH AND OTHER NONSPECIFIC SKIN ERUPTION 09/04/2012 DEBI FURNITURE DETAILER, CINDY S 788.30 URINARY INCONTINENCE UNSPECIFIED 09/04/2012 DEBI FURNITURE DETAILER, CINDY S 782.1 RASH AND OTHER NONSPECIFIC SKIN ERUPTION 09/04/2012 DEBI FURNITURE DETAILER, CINDY S 788.30 URINARY INCONTINENCE UNSPECIFIED 09/04/2012 DEBI FURNITURE DETAILER, CINDY S 782.1 RASH AND OTHER NONSPECIFIC SKIN ERUPTION 09/04/2012 DEBI FURNITURE DETAILER, CINDY S 788.30 URINARY INCONTINENCE UNSPECIFIED 09/04/2012 DEBI FURNITURE DETAILER, CINDY S 782.1 RASH AND OTHER NONSPECIFIC SKIN ERUPTION 09/04/2012 DEBI FURNITURE DETAILER, CINDY S 788.30 URINARY INCONTINENCE UNSPECIFIED 09/04/2012 DEBI FURNITURE DETAILER, CINDY S 782.1 RASH AND OTHER NONSPECIFIC SKIN ERUPTION 09/04/2012 DEBI FURNITURE DETAILER, CINDY S 788.30 URINARY INCONTINENCE UNSPECIFIED 09/04/2012 DEBI FURNITURE DETAILER, CINDY S 782.1 RASH AND OTHER NONSPECIFIC SKIN ERUPTION 09/04/2012 DEBI FURNITURE DETAILER, CINDY S 788.30 URINARY INCONTINENCE UNSPECIFIED 09/04/2012 DEBI FURNITURE DETAILER, CINDY S 782.1 RASH AND OTHER NONSPECIFIC SKIN ERUPTION 09/04/2012 DEBI FURNITURE DETAILER, CINDY S 788.30 URINARY INCONTINENCE UNSPECIFIED 09/04/2012 MARLENA FURNITURE DETAILER, ERIC A 782.1 RASH AND OTHER NONSPECIFIC SKIN ERUPTION 09/04/2012 MARLENA FURNITURE DETAILER, ERIC A 788.30 URINARY INCONTINENCE UNSPECIFIED 09/04/2012 ARTEM FURNITURE DETAILER ROSIO T 782.1 RASH AND OTHER NONSPECIFIC SKIN ERUPTION 09/04/2012 ARTEM FURNITURE DETAILER, ROSIO T 788.30 URINARY INCONTINENCE UNSPECIFIED 09/04/2012 ARTEM FURNITURE DETAILER, ROSIO T 782.1 RASH AND OTHER NONSPECIFIC SKIN ERUPTION 09/04/2012 ARTEM FURNITURE DETAILER ROSIO T 788.30 URINARY INCONTINENCE UNSPECIFIED 09/04/2012 DEBI FURNITURE DETAILER, CINDY S 782.1 RASH AND OTHER NONSPECIFIC SKIN ERUPTION 09/04/2012 DEBI FURNITURE DETAILER, CINDY S 788.30 URINARY INCONTINENCE UNSPECIFIED 09/04/2012 DEBI FURNITURE DETAILER, CINDY S 782.1 RASH AND OTHER NONSPECIFIC SKIN ERUPTION 09/04/2012 DEBI FURNITURE DETAILER, CINDY S 788.30 URINARY INCONTINENCE UNSPECIFIED 09/04/2012 DEBI FURNITURE DETAILER, CINDY S 782.1 RASH AND OTHER NONSPECIFIC SKIN ERUPTION 09/04/2012 DEBI FURNITURE DETAILER, CINDY S 788.30 URINARY INCONTINENCE UNSPECIFIED 09/04/2012 DEBI FURNITURE DETAILER, CINDY S 782.1 RASH AND OTHER NONSPECIFIC SKIN ERUPTION 09/04/2012 DEBI FURNITURE DETAILER, CINDY S 788.30 URINARY INCONTINENCE UNSPECIFIED 09/04/2012 DEBI FURNITURE DETAILER, CINDY S 782.1 RASH AND OTHER NONSPECIFIC SKIN ERUPTION 09/04/2012 DEBI FURNITURE DETAILER, CINDY S 788.30 URINARY INCONTINENCE UNSPECIFIED 09/04/2012 DEBI FURNITURE DETAILER, CINDY S 782.1 RASH AND OTHER NONSPECIFIC SKIN ERUPTION 09/04/2012 DEBI FURNITURE DETAILER, CINDY S 788.30 URINARY INCONTINENCE UNSPECIFIED 09/04/2012 DEBI FURNITURE DETAILER, CINDY S 782.1 RASH AND OTHER NONSPECIFIC SKIN ERUPTION 09/04/2012 DEBI FURNITURE DETAILER, CINDY S 788.30 URINARY INCONTINENCE UNSPECIFIED 09/04/2012 DEBI FURNITURE DETAILER, CINDY S 782.1 RASH AND OTHER NONSPECIFIC SKIN ERUPTION 09/04/2012 DEBI FURNITURE DETAILER, CINDY S 788.30 URINARY INCONTINENCE UNSPECIFIED 09/04/2012 MARLENA FURNITURE DETAILER, ERIC A 782.1 RASH AND OTHER NONSPECIFIC SKIN ERUPTION 09/04/2012 MARLENA FURNITURE DETAILER, ERIC A 788.30 URINARY INCONTINENCE UNSPECIFIED 09/04/2012 MARLENA FURNITURE DETAILER, ERIC A 782.1 RASH AND OTHER NONSPECIFIC SKIN ERUPTION 09/04/2012 MARLENA FURNITURE DETAILER, ERIC A 788.30 URINARY INCONTINENCE UNSPECIFIED 09/04/2012 DEBI FURNITURE DETAILER CINDY S 782.1 RASH AND OTHER NONSPECIFIC SKIN ERUPTION 09/04/2012 DEIB FURNITURE DETAILER, CINDY S 788.30 URINARY INCONTINENCE UNSPECIFIED 09/04/2012 MARLENA FURNITURE DETAILER, ERIC A 782.1 RASH AND OTHER NONSPECIFIC SKIN ERUPTION 09/04/2012 MARLENA FURNITURE DETAILER, ERIC A 788.30 URINARY INCONTINENCE UNSPECIFIED 09/04/2012 DEBI FURNITURE DETAILERRUCHICINDY S 782.1 RASH AND OTHER NONSPECIFIC SKIN ERUPTION 09/04/2012 DEBI FURNITURE DETAILER CINDY S 788.30 URINARY INCONTINENCE UNSPECIFIED 03/20/2013 COURTNEY MACARIO APRN 692.9 CONTACT DERMATITIS AND OTHER ECZEMA UNSPECIFIED CAUSE 03/20/2013 RUCHI CARRERA APRNNDA S 692.9 CONTACT DERMATITIS AND OTHER ECZEMA UNSPECIFIED CAUSE 03/20/2013 FLETCHER DO, RUBINA K 692.9 CONTACT DERMATITIS AND OTHER ECZEMA UNSPECIFIED CAUSE 03/20/2013 FLETCHER DO, RUBINA K 692.9 CONTACT DERMATITIS AND OTHER ECZEMA UNSPECIFIED CAUSE 03/20/2013 RUCHI CARRERA APRNNDA S 692.9 CONTACT DERMATITIS AND OTHER ECZEMA UNSPECIFIED CAUSE 03/20/2013 RUCHI CARRERA APRNNDA S 692.9 CONTACT DERMATITIS AND OTHER ECZEMA UNSPECIFIED CAUSE 03/20/2013 DEBI FURNITURE DETAILER, CINDY S 692.9 CONTACT DERMATITIS AND OTHER ECZEMA UNSPECIFIED CAUSE 03/20/2013 DEBI FURNITURE DETAILER, CINDY S 692.9 CONTACT DERMATITIS AND OTHER ECZEMA UNSPECIFIED CAUSE 03/20/2013 DEBI FURNITURE DETAILER, CINDY S 692.9 CONTACT DERMATITIS AND OTHER ECZEMA UNSPECIFIED CAUSE 03/20/2013 DEBI FURNITURE DETAILER, CINDY S 692.9 CONTACT DERMATITIS AND OTHER ECZEMA UNSPECIFIED CAUSE 03/20/2013 DEBI FURNITURE DETAILER, CINDY S 692.9 CONTACT DERMATITIS AND OTHER ECZEMA UNSPECIFIED CAUSE 03/20/2013 DEBI FURNITURE DETAILER, CINDY S 692.9 CONTACT DERMATITIS AND OTHER ECZEMA UNSPECIFIED CAUSE 03/20/2013 MARLENA FURNITURE DETAILER, ERIC A 692.9 CONTACT DERMATITIS AND OTHER ECZEMA UNSPECIFIED CAUSE 03/20/2013 ROSIO MCGILL APRN 692.9 CONTACT DERMATITIS AND OTHER ECZEMA UNSPECIFIED CAUSE 03/20/2013 ARTEM BRUNERNROSIO 692.9 CONTACT DERMATITIS AND OTHER ECZEMA UNSPECIFIED CAUSE 03/20/2013 DEBI FURNITURE DETAILER, CINDY S 692.9 CONTACT DERMATITIS AND OTHER ECZEMA UNSPECIFIED CAUSE 03/20/2013 DEBI FURNITURE DETAILER, CINDY S 692.9 CONTACT DERMATITIS AND OTHER ECZEMA UNSPECIFIED CAUSE 03/20/2013 DEBI FURNITURE DETAILER, CINDY S 692.9 CONTACT DERMATITIS AND OTHER ECZEMA UNSPECIFIED CAUSE 03/20/2013 DEBI FURNITURE DETAILER, CINDY S 692.9 CONTACT DERMATITIS AND OTHER ECZEMA UNSPECIFIED CAUSE 03/20/2013 DEBI FURNITURE DETAILER, CINDY S 692.9 CONTACT DERMATITIS AND OTHER ECZEMA UNSPECIFIED CAUSE 03/20/2013 DEBI FURNITURE DETAILER, CINDY S 692.9 CONTACT DERMATITIS AND OTHER ECZEMA UNSPECIFIED CAUSE 03/20/2013 DEBI FURNITURE DETAILER, CINDY S 692.9 CONTACT DERMATITIS AND OTHER ECZEMA UNSPECIFIED CAUSE 03/20/2013 DEBI FURNITURE DETAILER, CINDY S 692.9 CONTACT DERMATITIS AND OTHER ECZEMA UNSPECIFIED CAUSE 03/20/2013 MARLENA FURNITURE DETAILER, ERIC A 692.9 CONTACT DERMATITIS AND OTHER ECZEMA UNSPECIFIED CAUSE 03/20/2013 MARLENA FURNITURE DETAILER, ERIC A 692.9 CONTACT DERMATITIS AND OTHER ECZEMA UNSPECIFIED CAUSE 03/20/2013 DEBI FURNITURE DETAILER, CINDY S 692.9 CONTACT DERMATITIS AND OTHER ECZEMA UNSPECIFIED CAUSE 03/20/2013 MARLENA FURNITURE DETAILER, EIRC A 692.9 CONTACT DERMATITIS AND OTHER ECZEMA UNSPECIFIED CAUSE 03/20/2013 DEBI FURNITURE DETAILER, CINDY S 692.9 CONTACT DERMATITIS AND OTHER ECZEMA UNSPECIFIED CAUSE 04/13/2013 DEBI FURNITURE DETAILER, CINDY S 702.19 SEBORRHEIC KERATOSIS 04/13/2013 FLETCHER DO, RUBINA K 702.19 SEBORRHEIC KERATOSIS 04/13/2013 FLETCHER DO, RUBINA K 702.19 SEBORRHEIC KERATOSIS 04/13/2013 DEBI FURNITURE DETAILER, CINDY S 702.19 SEBORRHEIC KERATOSIS 04/13/2013 DEBI FURNITURE DETAILER, CINDY S 702.19 SEBORRHEIC KERATOSIS 04/13/2013 DEBI FURNITURE DETAILER, CINDY S 702.19 SEBORRHEIC KERATOSIS 04/13/2013 DEBI FURNITURE DETAILER, CINDY S 702.19 SEBORRHEIC KERATOSIS 04/13/2013 DEBI FURNITURE DETAILER, CINDY S 702.19 SEBORRHEIC KERATOSIS 04/13/2013 DEBI FURNITURE DETAILER, CINDY S 702.19 SEBORRHEIC KERATOSIS 04/13/2013 DEBI FURNITURE DETAILER, CINDY S 702.19 SEBORRHEIC KERATOSIS 04/13/2013 DEBI FURNITURE DETAILER, CINDY S 702.19 SEBORRHEIC KERATOSIS 04/13/2013 MARLENA FURNITURE DETAILER, ERIC A 702.19 SEBORRHEIC KERATOSIS 04/13/2013 ARTEM BRUNERN, ROSIO T 702.19 SEBORRHEIC KERATOSIS 04/13/2013 ARTEM FURNITURE DETAILER, ROSIO T 702.19 SEBORRHEIC KERATOSIS 04/13/2013 DEBI FURNITURE DETAILER, CINDY S 702.19 SEBORRHEIC KERATOSIS 04/13/2013 DEBI FURNITURE DETAILER, CINDY S 702.19 SEBORRHEIC KERATOSIS 04/13/2013 DEBI FURNITURE DETAILER, CINDY S 702.19 SEBORRHEIC KERATOSIS 04/13/2013 DEBI FURNITURE DETAILER, CINDY S 702.19 SEBORRHEIC KERATOSIS 04/13/2013 DEBI FURNITURE DETAILER, CINDY S 702.19 SEBORRHEIC KERATOSIS 04/13/2013 DEBI FURNITURE DETAILER, CINDY S 702.19 SEBORRHEIC KERATOSIS 04/13/2013 DEBI FURNITURE DETAILER, CINDY S 702.19 SEBORRHEIC KERATOSIS 04/13/2013 DEBI FURNITURE DETAILER, CINDY S 702.19 SEBORRHEIC KERATOSIS 04/13/2013 MARLENA FURNITURE DETAILER, ERIC A 702.19 SEBORRHEIC KERATOSIS 04/13/2013 MARLENA FURNITURE DETAILER, ERIC A 702.19 SEBORRHEIC KERATOSIS 04/13/2013 DEBI FURNITURE DETAILER, CINDY S 702.19 SEBORRHEIC KERATOSIS 04/13/2013 MARLENA FURNITURE DETAILER, ERIC A 702.19 SEBORRHEIC KERATOSIS 04/13/2013 DEBI FURNITURE DETAILER, CINDY S 702.19 SEBORRHEIC KERATOSIS 04/24/2013 RUBINA FLETCHER DO K 945.10 ERYTHEMA DUE TO BURN (FIRST DEGREE) OF UNSPECIFIED SITE OF LOWER LIMB (LEG) 04/24/2013 RUBINA FLETCHER DO K 945.10 ERYTHEMA DUE TO BURN (FIRST DEGREE) OF UNSPECIFIED SITE OF LOWER LIMB (LEG) 04/24/2013 DEBI WARD, CINDY S 945.10 ERYTHEMA DUE TO BURN (FIRST DEGREE) OF UNSPECIFIED SITE OF LOWER LIMB (LEG) 04/24/2013 DEBI WARD, CINDY S 945.10 ERYTHEMA DUE TO BURN (FIRST DEGREE) OF UNSPECIFIED SITE OF LOWER LIMB (LEG) 04/24/2013 DEBI FURNITURE DETAILER, CINDY S 945.10 ERYTHEMA DUE TO BURN (FIRST DEGREE) OF UNSPECIFIED SITE OF LOWER LIMB (LEG) 04/24/2013 DEBI FURNITURE DETAILER, CINDY S 945.10 ERYTHEMA DUE TO BURN (FIRST DEGREE) OF UNSPECIFIED SITE OF LOWER LIMB (LEG) 04/24/2013 DEBI FURNITURE DETAILER, CINDY S 945.10 ERYTHEMA DUE TO BURN (FIRST DEGREE) OF UNSPECIFIED SITE OF LOWER LIMB (LEG) 04/24/2013 DEBI WARD, CINDY S 945.10 ERYTHEMA DUE TO BURN (FIRST DEGREE) OF UNSPECIFIED SITE OF LOWER LIMB (LEG) 04/24/2013 RUCHI CARRERA APRNNDA S 945.10 ERYTHEMA DUE TO BURN (FIRST DEGREE) OF UNSPECIFIED SITE OF LOWER LIMB (LEG) 04/24/2013 DEBI WARD CINDY S 945.10 ERYTHEMA DUE TO BURN (FIRST DEGREE) OF UNSPECIFIED SITE OF LOWER LIMB (LEG) 04/24/2013 ERIC MENDIOLA APRN 945.10 ERYTHEMA DUE TO BURN (FIRST DEGREE) OF UNSPECIFIED SITE OF LOWER LIMB (LEG) 04/24/2013 ROSIO MCGILL APRN 945.10 ERYTHEMA DUE TO BURN (FIRST DEGREE) OF UNSPECIFIED SITE OF LOWER LIMB (LEG) 04/24/2013 ROSIO MCGILL APRN 945.10 ERYTHEMA DUE TO BURN (FIRST DEGREE) OF UNSPECIFIED SITE OF LOWER LIMB (LEG) 04/24/2013 RUCHI CARRERA APRNNDA S 945.10 ERYTHEMA DUE TO BURN (FIRST DEGREE) OF UNSPECIFIED SITE OF LOWER LIMB (LEG) 04/24/2013 RUCHI CARRERA APRNNDA S 945.10 ERYTHEMA DUE TO BURN (FIRST DEGREE) OF UNSPECIFIED SITE OF LOWER LIMB (LEG) 04/24/2013 DEBI WARD CINDY S 945.10 ERYTHEMA DUE TO BURN (FIRST DEGREE) OF UNSPECIFIED SITE OF LOWER LIMB (LEG) 04/24/2013 DEBI WARD, CINDY S 945.10 ERYTHEMA DUE TO BURN (FIRST DEGREE) OF UNSPECIFIED SITE OF LOWER LIMB (LEG) 04/24/2013 DEBI WARD CINDY S 945.10 ERYTHEMA DUE TO BURN (FIRST DEGREE) OF UNSPECIFIED SITE OF LOWER LIMB (LEG) 04/24/2013 DEBI WARD, CINDY S 945.10 ERYTHEMA DUE TO BURN (FIRST DEGREE) OF UNSPECIFIED SITE OF LOWER LIMB (LEG) 04/24/2013 DEBI WARD CINDY S 945.10 ERYTHEMA DUE TO BURN (FIRST DEGREE) OF UNSPECIFIED SITE OF LOWER LIMB (LEG) 04/24/2013 DEBI WARD CINDY S 945.10 ERYTHEMA DUE TO BURN (FIRST DEGREE) OF UNSPECIFIED SITE OF LOWER LIMB (LEG) 04/24/2013 MARLENA FURNITURE DETAILER, ERIC A 945.10 ERYTHEMA DUE TO BURN (FIRST DEGREE) OF UNSPECIFIED SITE OF LOWER LIMB (LEG) 04/24/2013 MARLENA FURNITURE DETAILER, ERIC A 945.10 ERYTHEMA DUE TO BURN (FIRST DEGREE) OF UNSPECIFIED SITE OF LOWER LIMB (LEG) 04/24/2013 DEBI FURNITURE DETAILER, CINDY S 945.10 ERYTHEMA DUE TO BURN (FIRST DEGREE) OF UNSPECIFIED SITE OF LOWER LIMB (LEG) 04/24/2013 MARLENALOLITA BRUNERN, ERIC A 945.10 ERYTHEMA DUE TO BURN (FIRST DEGREE) OF UNSPECIFIED SITE OF LOWER LIMB (LEG) 04/24/2013 DEBI FURNITURE DETAILER, CINDY S 945.10 ERYTHEMA DUE TO BURN (FIRST DEGREE) OF UNSPECIFIED SITE OF LOWER LIMB (LEG) 06/10/2013 DEBI FURNITURE DETAILER, CINDY S 691.8 ECZEMA 06/10/2013 DEBI FURNITURE DETAILER, CINDY S 729.5 PAIN- FINGERS 06/10/2013 DEBI FURNITURE DETAILER, CINDY S 785.6 LYMPH NODES ENLARGEMENT 06/10/2013 DEBI FURNITURE DETAILER, CINDY S 691.8 ECZEMA 06/10/2013 DEBI FURNITURE DETAILER, CINDY S 729.5 PAIN- FINGERS 06/10/2013 DEBI FURNITURE DETAILER, CINDY S 785.6 LYMPH NODES ENLARGEMENT 06/10/2013 DEBI FURNITURE DETAILER, CINDY S 691.8 ECZEMA 06/10/2013 DEBI FURNITURE DETAILER, CINDY S 729.5 PAIN- FINGERS 06/10/2013 DEBI FURNITURE DETAILER, CINDY S 785.6 LYMPH NODES ENLARGEMENT 06/10/2013 DEBI FURNITURE DETAILER, CINDY S 691.8 ECZEMA 06/10/2013 DEBI FURNITURE DETAILER, CINDY S 729.5 PAIN- FINGERS 06/10/2013 DEBI FURNITURE DETAILER, CINDY S 785.6 LYMPH NODES ENLARGEMENT 06/10/2013 DEBI FURNITURE DETAILER, CINDY S 691.8 ECZEMA 06/10/2013 DEBI FURNITURE DETAILER, CINDY S 729.5 PAIN- FINGERS 06/10/2013 DEBI FURNITURE DETAILER, CINDY S 785.6 LYMPH NODES ENLARGEMENT 06/10/2013 DEBI FURNITURE DETAILER, CINDY S 691.8 ECZEMA 06/10/2013 DEBI FURNITURE DETAILER, CINDY S 729.5 PAIN- FINGERS 06/10/2013 DEBI FURNITURE DETAILER, CINDY S 785.6 LYMPH NODES ENLARGEMENT 06/10/2013 DEBI FURNITURE DETAILER, CINDY S 691.8 ECZEMA 06/10/2013 DEBI FURNITURE DETAILER, CINDY S 729.5 PAIN- FINGERS 06/10/2013 DEBI FURNITURE DETAILER, CINDY S 785.6 LYMPH NODES ENLARGEMENT 06/10/2013 DEBI FURNITURE DETAILER, CINDY S 691.8 ECZEMA 06/10/2013 DEBI FURNITURE DETAILER, CINDY S 729.5 PAIN- FINGERS 06/10/2013 DEBI FURNITURE DETAILER, CINDY S 785.6 LYMPH NODES ENLARGEMENT 06/10/2013 MARLENA FURNITURE DETAILER, ERIC A 691.8 ECZEMA 06/10/2013 MARLENA FURNITURE DETAILER, ERIC A 729.5 PAIN- FINGERS 06/10/2013 MARLENA FURNITURE DETAILER, ERIC A 785.6 LYMPH NODES ENLARGEMENT 06/10/2013 ARTEM WARD, ROSIO T 691.8 ECZEMA 06/10/2013 ARTEM FURNITURE DETAILER, ROSIO T 729.5 PAIN- FINGERS 06/10/2013 ARTEM BRUNERN, ROSIO T 785.6 LYMPH NODES ENLARGEMENT 06/10/2013 ARTME BRUNERN, ROSIO T 691.8 ECZEMA 06/10/2013 ARTEM BRUNERN, ROSIO T 729.5 PAIN- FINGERS 06/10/2013 ARTEM BRUNERN, ROSIO T 785.6 LYMPH NODES ENLARGEMENT 06/10/2013 DEBI FURNITURE DETAILER, CINDY S 691.8 ECZEMA 06/10/2013 DEBI FURNITURE DETAILER, CINDY S 729.5 PAIN- FINGERS 06/10/2013 DEBI FURNITURE DETAILER, CINDY S 785.6 LYMPH NODES ENLARGEMENT 06/10/2013 DEBI FURNITURE DETAILER, CINDY S 691.8 ECZEMA 06/10/2013 DEBI FURNITURE DETAILER, CINDY S 729.5 PAIN- FINGERS 06/10/2013 DEBI FURNITURE DETAILER, CINDY S 785.6 LYMPH NODES ENLARGEMENT 06/10/2013 DEBI FURNITURE DETAILER, CINDY S 691.8 ECZEMA 06/10/2013 DEBI FURNITURE DETAILER, CINDY S 729.5 PAIN- FINGERS 06/10/2013 DEBI FURNITURE DETAILER, CINDY S 785.6 LYMPH NODES ENLARGEMENT 06/10/2013 DEBI FURNITURE DETAILER, CINYD S 691.8 ECZEMA 06/10/2013 DEBI FURNITURE DETAILER, CINDY S 729.5 PAIN- FINGERS 06/10/2013 DEBI FURNITURE DETAILER, CINDY S 785.6 LYMPH NODES ENLARGEMENT 06/10/2013 DEBI FURNITURE DETAILER, CINDY S 691.8 ECZEMA 06/10/2013 DEBI FURNITURE DETAILER, CINDY S 729.5 PAIN- FINGERS 06/10/2013 DEBI FURNITURE DETAILER, CINDY S 785.6 LYMPH NODES ENLARGEMENT 06/10/2013 DEBI FURNITURE DETAILER, CINDY S 691.8 ECZEMA 06/10/2013 DEBI FURNITURE DETAILER, CINDY S 729.5 PAIN- FINGERS 06/10/2013 DEBI FURNITURE DETAILER, CINDY S 785.6 LYMPH NODES ENLARGEMENT 06/10/2013 DEBI FURNITURE DETAILER, CINDY S 691.8 ECZEMA 06/10/2013 DEBI FURNITURE DETAILER, CINDY S 729.5 PAIN- FINGERS 06/10/2013 DEBI FURNITURE DETAILER, CINDY S 785.6 LYMPH NODES ENLARGEMENT 06/10/2013 DEBI FURNITURE DETAILER, CINDY S 691.8 ECZEMA 06/10/2013 DEBI FURNITURE DETAILER, CINDY S 729.5 PAIN- FINGERS 06/10/2013 DEBI FURNITURE DETAILER, CINDY S 785.6 LYMPH NODES ENLARGEMENT 06/10/2013 MARLENA FURNITURE DETAILER, ERIC A 691.8 ECZEMA 06/10/2013 MARLENA FURNITURE DETAILER, ERIC A 729.5 PAIN- FINGERS 06/10/2013 MARLENA FURNITURE DETAILER, ERIC A 785.6 LYMPH NODES ENLARGEMENT 06/10/2013 MARLENA FURNITURE DETAILER, ERIC A 691.8 ECZEMA 06/10/2013 MARLENA FURNITURE DETAILER, ERIC A 729.5 PAIN- FINGERS 06/10/2013 MARLENA FURNITURE DETAILER, ERIC A 785.6 LYMPH NODES ENLARGEMENT 06/10/2013 DEBI FURNITURE DETAILER, CINDY S 691.8 ECZEMA 06/10/2013 DEBI FURNITURE DETAILER, CINDY S 729.5 PAIN- FINGERS 06/10/2013 DEBI FURNITURE DETAILER, CINDY S 785.6 LYMPH NODES ENLARGEMENT 06/10/2013 MARLENA FURNITURE DETAILER, ERIC A 691.8 ECZEMA 06/10/2013 MARLENA FURNITURE DETAILER, ERIC A 729.5 PAIN- FINGERS 06/10/2013 MARLENA FURNITURE DETAILER, ERIC A 785.6 LYMPH NODES ENLARGEMENT 06/10/2013 DEBI FURNITURE DETAILER, CINDY S 691.8 ECZEMA 06/10/2013 DEBI FURNITURE DETAILER, CINDY S 729.5 PAIN- FINGERS 06/10/2013 DEBI FURNITURE DETAILER, CINDY S 785.6 LYMPH NODES ENLARGEMENT 07/15/2013 DEBI BRUNERN, CINDY S V73.81 HPV SCREENING 07/15/2013 DEBI WARD, CINDY S V76.10 BREAST CANCER SCREENING 07/15/2013 DEBI WARD, CINDY S V76.2 CERVICAL CANCER SCREENING (PAP SMEAR) 07/15/2013 DEBI WARD, CINDY S V73.81 HPV SCREENING 07/15/2013 DEBI FURNITURE DETAILER, CINDY S V76.10 BREAST CANCER SCREENING 07/15/2013 DEBI WARD, CINDY S V76.2 CERVICAL CANCER SCREENING (PAP SMEAR) 07/15/2013 DEBI FURNITURE DETAILER, CINDY S V73.81 HPV SCREENING 07/15/2013 DEBI FURNITURE DETAILER, CINDY S V76.10 BREAST CANCER SCREENING 07/15/2013 DEBI WARD, CINDY S V76.2 CERVICAL CANCER SCREENING (PAP SMEAR) 07/15/2013 DEBI FURNITURE DETAILER, CINDY S V73.81 HPV SCREENING 07/15/2013 DEBI FURNITURE DETAILER, CINDY S V76.10 BREAST CANCER SCREENING 07/15/2013 DEBI FURNITURE DETAILER, CINDY S V76.2 CERVICAL CANCER SCREENING (PAP SMEAR) 07/15/2013 DEBI FURNITURE DETAILER, CINDY S V73.81 HPV SCREENING 07/15/2013 DEBI FURNITURE DETAILER, CINDY S V76.10 BREAST CANCER SCREENING 07/15/2013 DEBI WARD, CINDY S V76.2 CERVICAL CANCER SCREENING (PAP SMEAR) 07/15/2013 DEBI FURNITURE DETAILER, CINDY S V73.81 HPV SCREENING 07/15/2013 DEBI FURNITURE DETAILER, CINDY S V76.10 BREAST CANCER SCREENING 07/15/2013 DEBI FURNITURE DETAILER, CINDY S V76.2 CERVICAL CANCER SCREENING (PAP SMEAR) 07/15/2013 DEBI FURNITURE DETAILER, CINDY S V73.81 HPV SCREENING 07/15/2013 DEBI FURNITURE DETAILER, CINDY S V76.10 BREAST CANCER SCREENING 07/15/2013 DEBI FURNITURE DETAILER, CINDY S V76.2 CERVICAL CANCER SCREENING (PAP SMEAR) 07/15/2013 MARLENA WARD, ERIC A V73.81 HPV SCREENING 07/15/2013 MARLENA FURNITURE DETAILER, ERIC A V76.10 BREAST CANCER SCREENING 07/15/2013 MARLENA WARD, ERIC A V76.2 CERVICAL CANCER SCREENING (PAP SMEAR) 07/15/2013 ARTEM WARD ROSIO T V73.81 HPV SCREENING 07/15/2013 ARTEM WARD ROSIO T V76.10 BREAST CANCER SCREENING 07/15/2013 ARTEM WARD ROSIO T V76.2 CERVICAL CANCER SCREENING (PAP SMEAR) 07/15/2013 ARTEM WARD ROSIO T V73.81 HPV SCREENING 07/15/2013 ARTEM WARD ROSIO T V76.10 BREAST CANCER SCREENING 07/15/2013 ARTEM WARD ROSIO T V76.2 CERVICAL CANCER SCREENING (PAP SMEAR) 07/15/2013 DEBI WARD, CINDY S V73.81 HPV SCREENING 07/15/2013 DEBI FURNITURE DETAILER, CINDY S V76.10 BREAST CANCER SCREENING 07/15/2013 DEBI FURNITURE DETAILER, CINDY S V76.2 CERVICAL CANCER SCREENING (PAP SMEAR) 07/15/2013 DEBI FURNITURE DETAILER, CINDY S V73.81 HPV SCREENING 07/15/2013 DEBI FURNITURE DETAILER, CINDY S V76.10 BREAST CANCER SCREENING 07/15/2013 DEBI FURNITURE DETAILER, CINDY S V76.2 CERVICAL CANCER SCREENING (PAP SMEAR) 07/15/2013 DEBI FURNITURE DETAILER, CINDY S V73.81 HPV SCREENING 07/15/2013 DEBI FURNITURE DETAILER, CINDY S V76.10 BREAST CANCER SCREENING 07/15/2013 DEBI FURNITURE DETAILER, CINDY S V76.2 CERVICAL CANCER SCREENING (PAP SMEAR) 07/15/2013 DEBI FURNITURE DETAILER, CINDY S V73.81 HPV SCREENING 07/15/2013 DEBI FURNITURE DETAILER, CINDY S V76.10 BREAST CANCER SCREENING 07/15/2013 DEBI FURNITURE DETAILER, CINDY S V76.2 CERVICAL CANCER SCREENING (PAP SMEAR) 07/15/2013 DEBI FURNITURE DETAILER, CINDY S V73.81 HPV SCREENING 07/15/2013 DEBI FURNITURE DETAILER, CINDY S V76.10 BREAST CANCER SCREENING 07/15/2013 DEBI FURNITURE DETAILER, CINDY S V76.2 CERVICAL CANCER SCREENING (PAP SMEAR) 07/15/2013 DEBI FURNITURE DETAILER, CINDY S V73.81 HPV SCREENING 07/15/2013 DEBI FURNITURE DETAILER, CINDY S V76.10 BREAST CANCER SCREENING 07/15/2013 DEBI FURNITURE DETAILER, CINDY S V76.2 CERVICAL CANCER SCREENING (PAP SMEAR) 07/15/2013 DEBI FURNITURE DETAILER, CINDY S V73.81 HPV SCREENING 07/15/2013 DEBI FURNITURE DETAILER, CINDY S V76.10 BREAST CANCER SCREENING 07/15/2013 DEBI FURNITURE DETAILER, CINDY S V76.2 CERVICAL CANCER SCREENING (PAP SMEAR) 07/15/2013 DEBI FURNITURE DETAILER, CINDY S V73.81 HPV SCREENING 07/15/2013 DEBI FURNITURE DETAILER, CINDY S V76.10 BREAST CANCER SCREENING 07/15/2013 DEBI FURNITURE DETAILER, CINDY S V76.2 CERVICAL CANCER SCREENING (PAP SMEAR) 07/15/2013 MARLENA FURNITURE DETAILER, ERIC A V73.81 HPV SCREENING 07/15/2013 MARLENA FURNITURE DETAILER, ERIC A V76.10 BREAST CANCER SCREENING 07/15/2013 MARLENA FURNITURE DETAILER, ERIC A V76.2 CERVICAL CANCER SCREENING (PAP SMEAR) 07/15/2013 MARLENA FURNITURE DETAILER, ERIC A V73.81 HPV SCREENING 07/15/2013 MARLENA FURNITURE DETAILER, ERIC A V76.10 BREAST CANCER SCREENING 07/15/2013 MARLENA FURNITURE DETAILER, ERIC A V76.2 CERVICAL CANCER SCREENING (PAP SMEAR) 07/15/2013 DEBI FURNITURE DETAILER, CINDY S V73.81 HPV SCREENING 07/15/2013 DEBI FURNITURE DETAILER, CINDY S V76.10 BREAST CANCER SCREENING 07/15/2013 DEBI FURNITURE DETAILER, CINDY S V76.2 CERVICAL CANCER SCREENING (PAP SMEAR) 07/15/2013 MARLENA FURNITURE DETAILER, ERIC A V73.81 HPV SCREENING 07/15/2013 MARLENA FURNITURE DETAILER, ERIC A V76.10 BREAST CANCER SCREENING 07/15/2013 MARLENA FURNITURE DETAILER, ERIC A V76.2 CERVICAL CANCER SCREENING (PAP SMEAR) 07/15/2013 DEBI FURNITURE DETAILER, CINDY S V73.81 HPV SCREENING 07/15/2013 DEBI WARD, CINDY S V76.10 BREAST CANCER SCREENING 07/15/2013 DEBI FURNITURE DETAILER, CINDY S V76.2 CERVICAL CANCER SCREENING (PAP SMEAR) 11/11/2013 RUCHI CARRERA APRNNDA S 300.00 ANXIETY UNSPEC 11/11/2013 RUCHI CARRERA APRNNDA S 300.00 ANXIETY UNSPEC 11/11/2013 DEBI WARD CINDY S 300.00 ANXIETY UNSPEC 11/11/2013 ERIC MENDIOLA APRN A 300.00 ANXIETY UNSPEC 11/11/2013 ROSIO MCGILL APRN 300.00 ANXIETY UNSPEC 11/11/2013 ROSIO MCGILL APRN 300.00 ANXIETY UNSPEC 11/11/2013 RUCHI CARRERA APRNNDA S 300.00 ANXIETY UNSPEC 11/11/2013 DEBI WARD CINDY S 300.00 ANXIETY UNSPEC 11/11/2013 DEBI BRUNERN CINDY S 300.00 ANXIETY UNSPEC 11/11/2013 DEBI BRUNERN, CINDY S 300.00 ANXIETY UNSPEC 11/11/2013 DEBI WARD, CINDY S 300.00 ANXIETY UNSPEC 11/11/2013 DEBI BRUNERN, CINDY S 300.00 ANXIETY UNSPEC 11/11/2013 DEBI WARD CINDY S 300.00 ANXIETY UNSPEC 11/11/2013 DEBI WARD CINDY S 300.00 ANXIETY UNSPEC 11/11/2013 MARLENA FURNITURE DETAILER, ERIC A 300.00 ANXIETY UNSPEC 11/11/2013 MARLENA FURNITURE DETAILER, ERIC A 300.00 ANXIETY UNSPEC 11/11/2013 DEBI FURNITURE DETAILER, CINDY S 300.00 ANXIETY UNSPEC 11/11/2013 MARLENA FURNITURE DETAILER, ERIC A 300.00 ANXIETY UNSPEC 11/11/2013 DEBI FURNITURE DETAILER, CINDY S 300.00 ANXIETY UNSPEC 11/24/2013 JAYRO LAMAR, JERICHO Loving Ot 331.4 OBSTRUCTIV HYDROCEPHALUS 11/24/2013 JAYRO LAMAR, JERICHO Loving Ot 599.0 URIN TRACT INFECTION NOS 11/24/2013 JAYRO LAMAR, JERICHO Loving Ot 780.4 DIZZINESS AND GIDDINESS 12/03/2013 DEBI FURNITURE DETAILER, CINDY S 599.0 URINARY TRACT INFECTION 12/03/2013 DEBI FURNITURE DETAILER, CINDY S 599.0 URINARY TRACT INFECTION 12/03/2013 MARLENA FURNITURE DETAILER, ERIC A 599.0 URINARY TRACT INFECTION 12/03/2013 ARTEM FURNITURE DETAILER, ROSIO T 599.0 URINARY TRACT INFECTION 12/03/2013 ARTEM WARD, ROSIO T 599.0 URINARY TRACT INFECTION 12/03/2013 DEBI FURNITURE DETAILER, CINDY S 599.0 URINARY TRACT INFECTION 12/03/2013 DEBI FURNITURE DETAILER, CINDY S 599.0 URINARY TRACT INFECTION 12/03/2013 DEBI FURNITURE DETAILER, CINDY S 599.0 URINARY TRACT INFECTION 12/03/2013 DEBI FURNITURE DETAILER, CINDY S 599.0 URINARY TRACT INFECTION 12/03/2013 DEBI FURNITURE DETAILER, CINDY S 599.0 URINARY TRACT INFECTION 12/03/2013 DEBI FURNITURE DETAILER, CINDY S 599.0 URINARY TRACT INFECTION 12/03/2013 DEBI FURNITURE DETAILER, CINDY S 599.0 URINARY TRACT INFECTION 12/03/2013 DEBI FURNITURE DETAILER, CINDY S 599.0 URINARY TRACT INFECTION 12/03/2013 MARLENA FURNITURE DETAILER, ERIC A 599.0 URINARY TRACT INFECTION 12/03/2013 MARLENA FURNITURE DETAILER, ERIC A 599.0 URINARY TRACT INFECTION 12/03/2013 DEBI FURNITURE DETAILER, CINDY S 599.0 URINARY TRACT INFECTION 12/03/2013 MARLENA FURNITURE DETAILER, ERIC A 599.0 URINARY TRACT INFECTION 12/03/2013 DEBI FURNITURE DETAILER, CINDY S 599.0 URINARY TRACT INFECTION 01/18/2014 DEBI FURNITURE DETAILER, CINDY S 173.90 UNSPECIFIED MALIGNANT NEOPLASM OF SKIN SITE UNSPECIFIED 01/18/2014 DEBI FURNITURE DETAILER, CINDY S 702.19 SEBORRHEIC KERATOSIS 01/18/2014 MARLENA FURNITURE DETAILER, ERIC A 173.90 UNSPECIFIED MALIGNANT NEOPLASM OF SKIN SITE UNSPECIFIED 01/18/2014 MARLENA FURNITURE DETAILER, ERIC A 702.19 SEBORRHEIC KERATOSIS 01/18/2014 ROSIO MCGILL APRN T 173.90 UNSPECIFIED MALIGNANT NEOPLASM OF SKIN SITE UNSPECIFIED 01/18/2014 ARTEM BRUNERNROSIO T 702.19 SEBORRHEIC KERATOSIS 01/18/2014 ARTEM FURNITURE DETAILER ROSIO T 173.90 UNSPECIFIED MALIGNANT NEOPLASM OF SKIN SITE UNSPECIFIED 01/18/2014 ROSIO MCGILL APRN T 702.19 SEBORRHEIC KERATOSIS 01/18/2014 DEBI BRUNERN, CINDY S 173.90 UNSPECIFIED MALIGNANT NEOPLASM OF SKIN SITE UNSPECIFIED 01/18/2014 DEBI FURNITURE DETAILER, CINDY S 702.19 SEBORRHEIC KERATOSIS 01/18/2014 DEBI BRUNERN, CINDY S 173.90 UNSPECIFIED MALIGNANT NEOPLASM OF SKIN SITE UNSPECIFIED 01/18/2014 DEBI FURNITURE DETAILER, CINDY S 702.19 SEBORRHEIC KERATOSIS 01/18/2014 DEBI FURNITURE DETAILER, CINDY S 173.90 UNSPECIFIED MALIGNANT NEOPLASM OF SKIN SITE UNSPECIFIED 01/18/2014 DEBI FURNITURE DETAILER, CINDY S 702.19 SEBORRHEIC KERATOSIS 01/18/2014 DEBI FURNITURE DETAILER, CINDY S 173.90 UNSPECIFIED MALIGNANT NEOPLASM OF SKIN SITE UNSPECIFIED 01/18/2014 DEBI FURNITURE DETAILER, CINDY S 702.19 SEBORRHEIC KERATOSIS 01/18/2014 DEBI FURNITURE DETAILER, CINDY S 173.90 UNSPECIFIED MALIGNANT NEOPLASM OF SKIN SITE UNSPECIFIED 01/18/2014 DEBI FURNITURE DETAILER, CINDY S 702.19 SEBORRHEIC KERATOSIS 01/18/2014 DEBI FURNITURE DETAILER, CINDY S 173.90 UNSPECIFIED MALIGNANT NEOPLASM OF SKIN SITE UNSPECIFIED 01/18/2014 DEBI FURNITURE DETAILER, CINDY S 702.19 SEBORRHEIC KERATOSIS 01/18/2014 DEBI BRUNERN, CINDY S 173.90 UNSPECIFIED MALIGNANT NEOPLASM OF SKIN SITE UNSPECIFIED 01/18/2014 DEBI FURNITURE DETAILER, CINDY S 702.19 SEBORRHEIC KERATOSIS 01/18/2014 RUCHI CARRERA APRNNDA S 173.90 UNSPECIFIED MALIGNANT NEOPLASM OF SKIN SITE UNSPECIFIED 01/18/2014 DEBI FURNITURE DETAILER, CINDY S 702.19 SEBORRHEIC KERATOSIS 01/18/2014 MARLENA FURNITURE DETAILER, ERIC A 173.90 UNSPECIFIED MALIGNANT NEOPLASM OF SKIN SITE UNSPECIFIED 01/18/2014 MARLENA FURNITURE DETAILER, ERIC A 702.19 SEBORRHEIC KERATOSIS 01/18/2014 MARLENA FURNITURE DETAILER, ERIC A 173.90 UNSPECIFIED MALIGNANT NEOPLASM OF SKIN SITE UNSPECIFIED 01/18/2014 MARLENA FURNITURE DETAILER, ERIC A 702.19 SEBORRHEIC KERATOSIS 01/18/2014 DEBI WARD, CINDY S 173.90 UNSPECIFIED MALIGNANT NEOPLASM OF SKIN SITE UNSPECIFIED 01/18/2014 RUCHI CARRERA APRNNDA S 702.19 SEBORRHEIC KERATOSIS 01/18/2014 MARLENA FURNITURE DETAILER, ERIC A 173.90 UNSPECIFIED MALIGNANT NEOPLASM OF SKIN SITE UNSPECIFIED 01/18/2014 MARLENA FURNITURE DETAILER, ERIC A 702.19 SEBORRHEIC KERATOSIS 01/18/2014 RUCHI CARRERA APRNNDA S 173.90 UNSPECIFIED MALIGNANT NEOPLASM OF SKIN SITE UNSPECIFIED 01/18/2014 RUCHI CARRERA APRNNDA S 702.19 SEBORRHEIC KERATOSIS 02/16/2014 ROSIO MCGILL APRN 709.9 UNSPECIFIED DISORDER OF SKIN AND SUBCUTANEOUS TISSUE 02/16/2014 ROSIO MCGILL APRN 709.9 UNSPECIFIED DISORDER OF SKIN AND SUBCUTANEOUS TISSUE 02/16/2014 CINDY CARRERA APRN S 709.9 UNSPECIFIED DISORDER OF SKIN AND SUBCUTANEOUS TISSUE 02/16/2014 MARGARITA CARRERA APRNA S 709.9 UNSPECIFIED DISORDER OF SKIN AND SUBCUTANEOUS TISSUE 02/16/2014 RUCHI CARRERA APRNNDA S 709.9 UNSPECIFIED DISORDER OF SKIN AND SUBCUTANEOUS TISSUE 02/16/2014 DEBI FURNITURE DETAILERRUCHI GarciaNDA S 709.9 UNSPECIFIED DISORDER OF SKIN AND SUBCUTANEOUS TISSUE 02/16/2014 DEBI BRUNERNRUCHICINDY S 709.9 UNSPECIFIED DISORDER OF SKIN AND SUBCUTANEOUS TISSUE 02/16/2014 RUCHI CARRERA APRNNDA S 709.9 UNSPECIFIED DISORDER OF SKIN AND SUBCUTANEOUS TISSUE 02/16/2014 RUCHI CARRERA APRNNDA S 709.9 UNSPECIFIED DISORDER OF SKIN AND SUBCUTANEOUS TISSUE 02/16/2014 DEBI BRUNERNRUCHICINDY S 709.9 UNSPECIFIED DISORDER OF SKIN AND SUBCUTANEOUS TISSUE 02/16/2014 MARLENA FURNITURE DETAILER, ERIC A 709.9 UNSPECIFIED DISORDER OF SKIN AND SUBCUTANEOUS TISSUE 02/16/2014 MARLENA FURNITURE DETAILER, ERIC A 709.9 UNSPECIFIED DISORDER OF SKIN AND SUBCUTANEOUS TISSUE 02/16/2014 RUCHI CARRERA APRNNDA S 709.9 UNSPECIFIED DISORDER OF SKIN AND SUBCUTANEOUS TISSUE 02/16/2014 MARLENA FURNITURE DETAILER, ERIC A 709.9 UNSPECIFIED DISORDER OF SKIN AND SUBCUTANEOUS TISSUE 02/16/2014 RUCHI CARRERA APRNNDA S 709.9 UNSPECIFIED DISORDER OF SKIN AND SUBCUTANEOUS TISSUE 04/07/2014 RUCHI CARRERA APRNNDA S 331.4 OBSTRUCTIVE HYDROCEPHALUS 04/07/2014 RUCHI CARRERA APRNNDA S 331.4 OBSTRUCTIVE HYDROCEPHALUS 04/07/2014 RUCHI CARRERA APRNNDA S 331.4 OBSTRUCTIVE HYDROCEPHALUS 04/07/2014 DEBI WARD CINDY S 331.4 OBSTRUCTIVE HYDROCEPHALUS 04/07/2014 DEBI BRUNERN, CINDY S 331.4 OBSTRUCTIVE HYDROCEPHALUS 04/07/2014 DEBI BRUNERN CINDY S 331.4 OBSTRUCTIVE HYDROCEPHALUS 04/07/2014 DEBI WARD CINDY S 331.4 OBSTRUCTIVE HYDROCEPHALUS 04/07/2014 DEBI BRUNERN, CINDY S 331.4 OBSTRUCTIVE HYDROCEPHALUS 04/07/2014 MARLENA FURNITURE DETAILER, ERIC A 331.4 OBSTRUCTIVE HYDROCEPHALUS 04/07/2014 MARLENA FURNITURE DETAILER, ERIC A 331.4 OBSTRUCTIVE HYDROCEPHALUS 04/07/2014 DEBI FURNITURE DETAILER, CINDY S 331.4 OBSTRUCTIVE HYDROCEPHALUS 04/07/2014 MARLENA FURNITURE DETAILER, ERIC A 331.4 OBSTRUCTIVE HYDROCEPHALUS 04/07/2014 DEBI FURNITURE DETAILER, CINDY S 331.4 OBSTRUCTIVE HYDROCEPHALUS 05/11/2014 DEBI FURNITURE DETAILER, CINDY S 008.8 GASTROENTERITIS, VIRAL 05/11/2014 DEBI FURNITURE DETAILER, CINDY S 599.70 HEMATURIA 05/11/2014 DEBI FURNITURE DETAILER, CINDY S 008.8 GASTROENTERITIS, VIRAL 05/11/2014 DEBI FURNITURE DETAILER, CINDY S 599.70 HEMATURIA 05/11/2014 DEBI FURNITURE DETAILER, CINDY S 008.8 GASTROENTERITIS, VIRAL 05/11/2014 DEBI FURNITURE DETAILER, CINDY S 599.70 HEMATURIA 05/11/2014 DEBI FURNITURE DETAILER, CINDY S 008.8 GASTROENTERITIS, VIRAL 05/11/2014 DEBI FURNITURE DETAILER, CINDY S 599.70 HEMATURIA 05/11/2014 DEBI FURNITURE DETAILER, CINDY S 008.8 GASTROENTERITIS, VIRAL 05/11/2014 DEBI FURNITURE DETAILER, CINDY S 599.70 HEMATURIA 05/11/2014 DEBI FURNITURE DETAILER, CINDY S 008.8 GASTROENTERITIS, VIRAL 05/11/2014 DEBI FURNITURE DETAILER, CINDY S 599.70 HEMATURIA 05/11/2014 DEBI FURNITURE DETAILER, CINDY S 008.8 GASTROENTERITIS, VIRAL 05/11/2014 DEBI FURNITURE DETAILER, CINDY S 599.70 HEMATURIA 05/11/2014 MARLENA FURNITURE DETAILER, ERIC A 008.8 GASTROENTERITIS, VIRAL 05/11/2014 MARLENA FURNITURE DETAILER, ERIC A 599.70 HEMATURIA 05/11/2014 MARLENA FURNITURE DETAILER, ERIC A 008.8 GASTROENTERITIS, VIRAL 05/11/2014 MARLENA FURNITURE DETAILER, ERIC A 599.70 HEMATURIA 05/11/2014 DEBI FURNITURE DETAILER, CINDY S 008.8 GASTROENTERITIS, VIRAL 05/11/2014 DEBI FURNITURE DETAILER, CINDY S 599.70 HEMATURIA 05/11/2014 MARLENA FURNITURE DETAILER, ERIC A 008.8 GASTROENTERITIS, VIRAL 05/11/2014 MARLENA FURNITURE DETAILER, ERIC A 599.70 HEMATURIA 05/11/2014 DEBI FURNITURE DETAILER, CINDY S 008.8 GASTROENTERITIS, VIRAL 05/11/2014 CINDY CARRERA APRN S 599.70 HEMATURIA 07/28/2014 CINDY CARRERA APRN S V70.0 EXAM - ROUTINE H&P 07/28/2014 CINDY CARRERA APRN S V77.91 SCREENING FOR LIPOID DISORDERS 07/28/2014 CINDY CARRERA APRN S V70.0 EXAM - ROUTINE H&P 07/28/2014 CINDY CARRERA APRN S V77.91 SCREENING FOR LIPOID DISORDERS 07/28/2014 MARLENA APRN, ERIC A V70.0 EXAM - ROUTINE H&P 07/28/2014 MARLENA WARD ERIC A V77.91 SCREENING FOR LIPOID DISORDERS 07/28/2014 MARLENA WARD, ERIC A V70.0 EXAM - ROUTINE H&P 07/28/2014 MARLENASHWETA Garcia APRNIDI A V77.91 SCREENING FOR LIPOID DISORDERS 07/28/2014 CINDY CARRERA APRN S V70.0 EXAM - ROUTINE H&P 07/28/2014 CINDY CARRERA APRN S V77.91 SCREENING FOR LIPOID DISORDERS 07/28/2014 MARLENA APRN, ERIC A V70.0 EXAM - ROUTINE H&P 07/28/2014 MARLENA APRN, ERIC A V77.91 SCREENING FOR LIPOID DISORDERS 07/28/2014 CINDY CARRERA APRN S V70.0 EXAM - ROUTINE H&P 07/28/2014 CINDY CARRERA APRN S V77.91 SCREENING FOR LIPOID DISORDERS 09/09/2014 MARLENA WARD, ERIC A V05.8 ZOSTAVAX DX 09/09/2014 MARLENA APRN, ERIC A V76.10 BREAST CANCER SCREENING 09/09/2014 MARLENA APRN, ERIC A V76.51 COLON CANCER SCREENING 09/09/2014 MARLENA APRN, ERIC A V05.8 ZOSTAVAX DX 09/09/2014 MARLENA APRN, ERIC A V76.10 BREAST CANCER SCREENING 09/09/2014 MARLENA WARD, ERIC A V76.51 COLON CANCER SCREENING 09/09/2014 DEBI WARD, CINDY S V05.8 ZOSTAVAX DX 09/09/2014 DEBI BRUNERN, CINDY S V76.10 BREAST CANCER SCREENING 09/09/2014 DEBI BRUNERN, CINDY S V76.51 COLON CANCER SCREENING 09/09/2014 MARLENA FURNITURE DETAILER, ERIC A V05.8 ZOSTAVAX DX 09/09/2014 MARLENA FURNITURE DETAILER, ERIC A V76.10 BREAST CANCER SCREENING 09/09/2014 MARLENA FURNITURE DETAILER, ERIC A V76.51 COLON CANCER SCREENING 09/09/2014 DEBI BRUNERN, CINDY S V05.8 ZOSTAVAX DX 09/09/2014 DEBI WARD, CINDY S V76.10 BREAST CANCER SCREENING 09/09/2014 DEBI WARD, CINDY S V76.51 COLON CANCER SCREENING 09/21/2014 RUCHI CARRERA APRNNDA S 789.00 ABDOMINAL PAIN UNSPECIFIED SITE 09/21/2014 MARLENA WARD, ERIC A 789.00 ABDOMINAL PAIN UNSPECIFIED SITE 09/21/2014 DEBI WARD, CINDY S 789.00 ABDOMINAL PAIN UNSPECIFIED SITE 09/22/2014 Ot 610.0 09/22/2014 Ot 793.81 09/22/2014 Ot V67.9 09/22/2014 Ot 722.4 09/22/2014 Ot 724.02 09/22/2014 Ot 724.4 09/22/2014 Ot 738.4 09/22/2014 Ot 793.81 09/22/2014 Ot V67.9 09/22/2014 Ot 793.82 09/22/2014 Ot 793.89 09/22/2014 Ot V16.3 09/22/2014 Ot V76.12 09/22/2014 Ot 784.0 09/22/2014 Ot V12.59 09/22/2014 Ot 793.89 09/22/2014 Ot V76.12 09/22/2014 Ot 793.80 09/22/2014 Ot 437.3 09/22/2014 Ot 437.3 09/22/2014 Ot 780.2 09/22/2014 Ot 442.9 09/22/2014 Ot 722.11 09/22/2014 CINDY CARRERA TECH INTERN Ot 793.82 09/22/2014 CINDY CARRERA TECH INTERN Ot V76.12 09/22/2014 ERIC MENDIOLA FURNITURE DETAILER Ot 793.89 09/22/2014 ERIC MENDIOLA FURNITURE DETAILER Ot V76.12 09/22/2014 ERIC MENDIOLA FURNITURE DETAILER Ot 793.80 09/22/2014 ADAN LAMAR, BRITTANY R Ot 781.2 09/22/2014 ADAN LAMAR, BRITTANY R Ot V15.88 09/27/2014 CINDY CARRERA APRN S 008.5 BACTERIAL ENTERITIS UNSPECIFIED 09/27/2014 CINDY CARRERA APRN S 787.91 DIARRHEA 09/30/2014 CINDY CARRERA TECH INTERN Ot 780.60 09/30/2014 CINDY CARRERA TECH INTERN Ot 789.00 10/09/2014 ARTUR LAMAR, LORI Anderson Ot 300.00 ANXIETY STATE NOS 10/09/2014 ARTUR LAMAR, LORI T Ot 493.90 ASTHMA, UNSPECIFIED 10/09/2014 ARTUR LAMAR, LORI T Ot 786.50 CHEST PAIN NOS 10/09/2014 ARTUR LAMAR, LORI T Ot 786.59 CHEST PAIN NEC 10/09/2014 ARTUR LAMAR, LORI T Ot V13.02 PERSONAL HISTORY, URINARY (TRACT) INFECT 10/09/2014 ARTUR LAMAR, LORI Anderson Ot V58.69 OTH MED,LT,CURRENT USE 10/13/2014 ARTUR LAMAR, LORI T Ot 300.00 10/13/2014 LORI SIDIDQUI MD T Ot 493.90 10/13/2014 LORI SIDDIQUI MD T Ot 786.50 10/13/2014 LORI SIDDIQUI MD T Ot 786.59 10/13/2014 LORI SIDDIQUI MD T Ot V13.02 10/13/2014 LORI SIDDIQUI MD T Ot V58.69 10/22/2014 LORI SIDDIQUI MD T Ot 300.00 10/22/2014 LORI SIDDIQUI MD T Ot 493.90 10/22/2014 ARTUR LAMAR, LORI T Ot 786.50 10/22/2014 ARTUR LAMAR, LORI T Ot 786.59 10/22/2014 ARTUR LAMAR, LORI T Ot V13.02 10/22/2014 ARTUR LAMAR, LORI T Ot V58.69 11/15/2014 CINDY CARRERA Ot 780.60 11/15/2014 CINDY CARRERA Ot 789.00 09/14/2015 Ot F41.9 09/14/2015 Ot I47.2 09/14/2015 Ot I67.1 09/14/2015 Ot R06.02 09/14/2015 Ot R07.89 09/15/2015 Ot 793.81 09/15/2015 Ot V67.9 09/15/2015 Ot 793.82 09/15/2015 Ot 793.89 09/15/2015 Ot V16.3 09/15/2015 Ot V76.12 09/15/2015 Ot 784.0 09/15/2015 Ot V12.59 09/15/2015 Ot 793.89 09/15/2015 Ot V76.12 09/15/2015 Ot 793.80 09/15/2015 Ot 437.3 09/15/2015 Ot 437.3 09/15/2015 Ot 780.2 09/15/2015 Ot 442.9 09/15/2015 Ot 722.11 09/15/2015 CINDY CARRERA Ot 793.82 09/15/2015 CINDY CARRERA Ot V76.12 09/15/2015 ERIC MENDIOLA FURNITURE DETAILER Ot 793.89 09/15/2015 ERIC MENDIOLA FURNITURE DETAILER Ot V76.12 09/15/2015 ERIC MENDIOLA FURNITURE DETAILER Ot 793.80 09/15/2015 ADAN LAMAR, BRITTANY Turner Ot 781.2 09/15/2015 ADAN LAMAR, BRITTANY Turner Ot V15.88 09/15/2015 CINDY CARRERA Ot 780.60 09/15/2015 CINDY CARRERA Ot 789.00 09/15/2015 Ot F41.9 09/15/2015 Ot I47.2 09/15/2015 Ot I67.1 09/15/2015 Ot R06.02 09/15/2015 Ot R07.89 09/15/2015 OPAL KIMBLE MD Ot I65.29 09/29/2015 OPAL KIMBLE MD Ot F41.9 ANXIETY DISORDER, UNSPECIFIED 09/29/2015 OPAL KIMBLE MD Ot I47.2 VENTRICULAR TACHYCARDIA 09/29/2015 OPAL KIMBLE MD Ot I67.1 CEREBRAL ANEURYSM, NONRUPTURED 09/29/2015 OPAL KIMBLE MD Ot R06.02 SHORTNESS OF BREATH 09/29/2015 OPAL KIMBLE MD Ot R07.89 OTHER CHEST PAIN 09/30/2015 OPAL KIMBLE MD Ot F41.9 ANXIETY DISORDER, UNSPECIFIED 09/30/2015 OPAL KIMBLE MD Ot I47.2 VENTRICULAR TACHYCARDIA 09/30/2015 OPAL KIMBLE MD Ot I67.1 CEREBRAL ANEURYSM, NONRUPTURED 09/30/2015 OPAL KIMBLE MD Ot R06.02 SHORTNESS OF BREATH 09/30/2015 OPAL KIMBLE MD Ot R07.89 OTHER CHEST PAIN 10/04/2015 OPAL KIMBLE MD Ot I65.29 OCCLUSION AND STENOSIS OF UNSPECIFIED CA 10/13/2015 OPAL KIMBLE MD Ot F41.9 ANXIETY DISORDER, UNSPECIFIED 10/13/2015 OPAL KIMBLE MD Ot I47.2 VENTRICULAR TACHYCARDIA 10/13/2015 OPAL KIMBLE MD Ot I67.1 CEREBRAL ANEURYSM, NONRUPTURED 10/13/2015 OPAL KIMBLE MD Ot R06.02 SHORTNESS OF BREATH 10/13/2015 OPAL KIMBLE MD Ot R07.89 OTHER CHEST PAIN 10/18/2015 OPAL KIMBLE MD Ot F41.9 ANXIETY DISORDER, UNSPECIFIED 10/18/2015 OPAL KIMBLE MD Ot I47.2 VENTRICULAR TACHYCARDIA 10/18/2015 OPAL KIMBLE MD Ot I67.1 CEREBRAL ANEURYSM, NONRUPTURED 10/18/2015 OPAL KIMBLE MD Ot R06.02 SHORTNESS OF BREATH 10/18/2015 OPAL KIMBLE MD Ot R07.89 OTHER CHEST PAIN 10/27/2015 OPAL KIMBLE MD Ot F41.9 ANXIETY DISORDER, UNSPECIFIED 10/27/2015 OPAL KIMBLE MD Ot I47.2 VENTRICULAR TACHYCARDIA 10/27/2015 OPAL KIMBLE MD Ot I67.1 CEREBRAL ANEURYSM, NONRUPTURED 10/27/2015 OPAL KIMBLE MD Ot R06.02 SHORTNESS OF BREATH 10/27/2015 OPAL KIMBLE MD Ot R07.89 OTHER CHEST PAIN 02/25/2017 Alondra Balderas 913.0 ABRASION OR FRICTION BURN OF ELBOW, FOREARM, AND WRIST, WITHOUT MENTION OF INFECTION 02/25/2017 Aolndra Balderas S50.811A ABRASION OF RIGHT FOREARM, INITIAL ENCOUNTER 02/25/2017 Alondra Balderas V05.9 NEED FOR PROPHYLACTIC VACCINATION AND INOCULATION AGAINST UNSPECIFIED SINGLE DISEASE 02/25/2017 Alondra Balderas Z23 ENCOUNTER FOR IMMUNIZATION 02/26/2017 Bello Vergara 881.00 OPEN WOUND OF FOREARM, WITHOUT MENTION OF COMPLICATION 02/26/2017 Bello Vergara S51.811A LACERATION W/O FOREIGN BODY OF RIGHT FOREARM, INIT ENCNTR 05/22/2017 Bello Vergara 558.9 OTHER AND UNSPECIFIED NONINFECTIOUS GASTROENTERITIS AND COLITIS 05/22/2017 Bello Vergara K52.9 NONINFECTIVE GASTROENTERITIS AND COLITIS, UNSPECIFIED 11/06/2017 Ot 442.9 ANEURYSM NOS 11/06/2017 Ot 722.11 THORACIC DISC DISPLACMNT 11/06/2017 CINDY CARRERA TECH INTERN Ot 793.82 INCONCLUSIVE MAMMOGRAM 11/06/2017 CINDY CARRERA TECH INTERN Ot V76.12 OTH SCREEN MAMMO-MALIGN NEOPLASM OF MICHELET 11/06/2017 ERIC MENDIOLA APRN Ot 793.89 OTH (ABN) FINDINGS ON RADIOLOGICAL EXAMI 11/06/2017 ERIC MENDIOLA APRN Ot V76.12 OTH SCREEN MAMMO-MALIGN NEOPLASM OF MICHELET 11/06/2017 ERIC MENDIOLA FURNITURE DETAILER Ot 793.80 UNSPEC ABNORMAL MAMMOGRAM 11/06/2017 ADAN LAMAR, BRITTANY Turner Ot 781.2 ABNORMALITY OF GAIT 11/06/2017 ADAN LAMAR, BRITTANY Turner Ot V15.88 HISTORY OF FALL 11/06/2017 CINDY CARRERA Ot 780.60 FEVER, UNSPECIFIED 11/06/2017 CINDY CARRERA Ot 789.00 ABDOMINAL PAIN, UNSPECIFIED SITE 11/06/2017 OPAL KIMBLE MD Ot F41.9 ANXIETY DISORDER, UNSPECIFIED 11/06/2017 OPAL KIMBLE MD Ot I47.2 VENTRICULAR TACHYCARDIA 11/06/2017 OPAL KIMBLE MD Ot I67.1 CEREBRAL ANEURYSM, NONRUPTURED 11/06/2017 OPAL KIMBLE MD Ot R06.02 SHORTNESS OF BREATH 11/06/2017 OPAL KIMBLE MD Ot R07.89 OTHER CHEST PAIN 11/06/2017 Ot F41.9 ANXIETY DISORDER, UNSPECIFIED 11/06/2017 Ot I47.2 VENTRICULAR TACHYCARDIA 11/06/2017 Ot I67.1 CEREBRAL ANEURYSM, NONRUPTURED 11/06/2017 Ot R06.02 SHORTNESS OF BREATH 11/06/2017 Ot R07.89 OTHER CHEST PAIN 11/06/2017 OPAL KIMBLE MD Ot I65.29 OCCLUSION AND STENOSIS OF UNSPECIFIED CA 11/06/2017 OPAL KIMBLE MD Ot F41.9 ANXIETY DISORDER, UNSPECIFIED 11/06/2017 OPAL KIMBLE MD Ot I47.2 VENTRICULAR TACHYCARDIA 11/06/2017 OPAL KIMBLE MD Ot I67.1 CEREBRAL ANEURYSM, NONRUPTURED 11/06/2017 OPAL KIMBLE MD Ot R06.02 SHORTNESS OF BREATH 11/06/2017 OPAL KIMBLE MD Ot R07.89 OTHER CHEST PAIN 11/06/2017 FOUZIA JIMENEZ MD Ot L98.9 DISORDER OF THE SKIN AND SUBCUTANEOUS TI 11/06/2017 FOUZIA JIMENEZ MD Ot Z01.810 ENCOUNTER FOR PREPROCEDURAL CARDIOVASCUL 11/06/2017 FOUZIA JIMENEZ MD Ot Z01.811 ENCOUNTER FOR PREPROCEDURAL RESPIRATORY 11/06/2017 FOUZIA JIMENEZ MD Ot Z01.812 ENCOUNTER FOR PREPROCEDURAL LABORATORY E 11/06/2017 FOUZIA JIMENEZ MD Ot Z11.2 ENCOUNTER FOR SCREENING FOR OTHER BACTER 11/12/2017 FOUZIA JIMENEZ MD Ot L98.9 DISORDER OF THE SKIN AND SUBCUTANEOUS TI 11/12/2017 BARBARA LAMAR, FOUZIA Aguilar Ot Z01.810 ENCOUNTER FOR PREPROCEDURAL CARDIOVASCUL 11/12/2017 FOUZIA JIMENEZ MD Ot Z01.811 ENCOUNTER FOR PREPROCEDURAL RESPIRATORY 11/12/2017 FOUZIA JIMENEZ MD Ot Z01.812 ENCOUNTER FOR PREPROCEDURAL LABORATORY E 11/12/2017 FOUZIA JIMENEZ MD Ot Z11.2 ENCOUNTER FOR SCREENING FOR OTHER BACTER 11/14/2017 Ot 442.9 ANEURYSM NOS 11/14/2017 Ot 722.11 THORACIC DISC DISPLACMNT 11/14/2017 CINDY CARRERA TECH INTERN Ot 793.82 INCONCLUSIVE MAMMOGRAM 11/14/2017 CINDY CARRERAP Ot V76.12 OTH SCREEN MAMMO-MALIGN NEOPLASM OF MICHELET 11/14/2017 MARLENAERIC MCHUGH FURNITURE DETAILER Ot 793.89 OTH (ABN) FINDINGS ON RADIOLOGICAL EXAMI 11/14/2017 ERIC MENDIOLA FURNITURE DETAILER Ot V76.12 OTH SCREEN MAMMO-MALIGN NEOPLASM OF MICHELET 11/14/2017 ERIC MENDIOLA FURNITURE DETAILER Ot 793.80 UNSPEC ABNORMAL MAMMOGRAM 11/14/2017 ADAN LAMAR, BRITTANY Turner Ot 781.2 ABNORMALITY OF GAIT 11/14/2017 ADAN LAMAR, BRITTANY Turner Ot V15.88 HISTORY OF FALL 11/14/2017 CINDY CARRERA TECH INTERN Ot 780.60 FEVER, UNSPECIFIED 11/14/2017 CINDY CARRERA TECH INTERN Ot 789.00 ABDOMINAL PAIN, UNSPECIFIED SITE 11/14/2017 OPAL KIMBLE MD Ot F41.9 ANXIETY DISORDER, UNSPECIFIED 11/14/2017 OPAL KIMBLE MD Ot I47.2 VENTRICULAR TACHYCARDIA 11/14/2017 OPAL KIMBLE MD Ot I67.1 CEREBRAL ANEURYSM, NONRUPTURED 11/14/2017 OPAL KIMBLE MD Ot R06.02 SHORTNESS OF BREATH 11/14/2017 OPAL KIMBLE MD Ot R07.89 OTHER CHEST PAIN 11/14/2017 Ot F41.9 ANXIETY DISORDER, UNSPECIFIED 11/14/2017 Ot I47.2 VENTRICULAR TACHYCARDIA 11/14/2017 Ot I67.1 CEREBRAL ANEURYSM, NONRUPTURED 11/14/2017 Ot R06.02 SHORTNESS OF BREATH 11/14/2017 Ot R07.89 OTHER CHEST PAIN 11/14/2017 OPAL KIMBLE MD Ot I65.29 OCCLUSION AND STENOSIS OF UNSPECIFIED CA 11/14/2017 OPAL KIMBLE MD Ot F41.9 ANXIETY DISORDER, UNSPECIFIED 11/14/2017 OPAL KIMBLE MD Ot I47.2 VENTRICULAR TACHYCARDIA 11/14/2017 OPAL KIMBLE MD Ot I67.1 CEREBRAL ANEURYSM, NONRUPTURED 11/14/2017 OPAL KIMBLE MD Ot R06.02 SHORTNESS OF BREATH 11/14/2017 OPAL KIMBLE MD Ot R07.89 OTHER CHEST PAIN 11/15/2017 BARBARA LAMAR, FOUZIA Aguilar Ot J45.909 UNSPECIFIED ASTHMA, UNCOMPLICATED 11/15/2017 FOUZIA JIMENEZ MD Ot L98.9 DISORDER OF THE SKIN AND SUBCUTANEOUS TI 11/15/2017 FOUZIA JIMENEZ MD Ot Z87.891 PERSONAL HISTORY OF NICOTINE DEPENDENCE 11/15/2017 FOUZIA JIMENEZ MD Ot Z98.2 PRESENCE OF CEREBROSPINAL FLUID DRAINAGE 12/28/2017 Bello Vergara 535.00 ACUTE GASTRITIS, WITHOUT MENTION OF HEMORRHAGE 12/28/2017 Bello Vergara W 784.0 HEADACHE 12/28/2017 Bello Vergara K29.00 ACUTE GASTRITIS WITHOUT BLEEDING 12/28/2017 Bello Vergara R51 HEADACHE 01/01/2018 Jerson Leslie V70.0 ROUTINE GENERAL MEDICAL EXAMINATION AT A HEALTH CARE FACILITY 01/01/2018 Jerson Leslie Z00.00 ENCOUNTER FOR GENERAL ADULT MEDICAL EXAMINATION WITHOUT ABNORMAL FINDINGS 01/01/2018 Jerson Leslie V70.0 ROUTINE GENERAL MEDICAL EXAMINATION AT A HEALTH CARE FACILITY 01/01/2018 Jerson Leslie Z00.00 ENCOUNTER FOR GENERAL ADULT MEDICAL EXAMINATION WITHOUT ABNORMAL FINDINGS 01/01/2018 Jerson Leslie V70.0 ROUTINE GENERAL MEDICAL EXAMINATION AT A HEALTH CARE FACILITY 01/01/2018 Jerson Leslie Z00.00 ENCOUNTER FOR GENERAL ADULT MEDICAL EXAMINATION WITHOUT ABNORMAL FINDINGS 01/29/2018 Jeannine Schroeder V76.51 SCREENING FOR MALIGNANT NEOPLASMS OF COLON 01/29/2018 Jeannine Schroeder Z12.11 ENCOUNTER FOR SCREENING FOR MALIGNANT NEOPLASM OF COLON 03/13/2018 Jerson Leslie V70.0 ROUTINE GENERAL MEDICAL EXAMINATION AT A HEALTH CARE FACILITY 03/13/2018 Jerson Leslie W Z00.00 ENCOUNTER FOR GENERAL ADULT MEDICAL EXAMINATION WITHOUT ABNORMAL FINDINGS 03/13/2018 Jerson Leslie V70.0 ROUTINE GENERAL MEDICAL EXAMINATION AT A HEALTH CARE FACILITY 03/13/2018 Jerson Leslie Z00.00 ENCOUNTER FOR GENERAL ADULT MEDICAL EXAMINATION WITHOUT ABNORMAL FINDINGS 05/07/2018 Jerson Leslie W 786.2 COUGH 05/07/2018 Jerson Leslie W R05 COUGH 05/07/2018 Jerson Leslie W 786.2 COUGH 05/07/2018 Jerson Leslie W R05 COUGH 09/24/2018 CE DIAZ MD Ot Z01.818 ENCOUNTER FOR OTHER PREPROCEDURAL EXAMIN 09/26/2018 CE DIAZ MD Ot H25.12 AGE-RELATED NUCLEAR CATARACT, LEFT EYE 09/26/2018 CE DIAZ MD Ot J45.909 UNSPECIFIED ASTHMA, UNCOMPLICATED 09/26/2018 CE DIAZ MD Ot K21.9 GASTRO-ESOPHAGEAL REFLUX DISEASE WITHOUT 09/26/2018 CE DIAZ MD Ot Z79.899 OTHER LONG-TERM (CURRENT) DRUG THERAPY 09/26/2018 CE DIAZ MD Ot Z86.79 PERSONAL HISTORY OF OTHER DISEASES OF 09/26/2018 CE DIAZ MD Ot Z87.891 PERSONAL HISTORY OF NICOTINE DEPENDENCE 09/29/2018 CE DIAZ MD Ot H25.12 AGE-RELATED NUCLEAR CATARACT, LEFT EYE 09/29/2018 CE DIAZ MD Ot J45.909 UNSPECIFIED ASTHMA, UNCOMPLICATED 09/29/2018 CE DIAZ MD Ot K21.9 GASTRO-ESOPHAGEAL REFLUX DISEASE WITHOUT 09/29/2018 CE DIAZ MD Ot 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 09/29/2018 CE DIAZ MD Ot Z86.79 PERSONAL HISTORY OF OTHER DISEASES OF 09/29/2018 CE DIAZ MD Ot Z87.891 PERSONAL HISTORY OF NICOTINE DEPENDENCE 10/08/2018 Lisa Joseph W 880.03 OPEN WOUND OF UPPER ARM, WITHOUT MENTION OF COMPLICATION 10/08/2018 Lisa Joseph W S41.111A LACERATION W/O FOREIGN BODY OF RIGHT UPPER ARM, INIT ENCNTR 10/08/2018 Lisa Joseph W S41.112A LACERATION W/O FOREIGN BODY OF LEFT UPPER ARM, INIT ENCNTR 10/14/2018 W 724.2 LUMBAGO 10/14/2018 W 729.5 PAIN IN LIMB 10/14/2018 W M54.5 LOW BACK PAIN 10/14/2018 W M79.604 PAIN IN RIGHT LEG Procedures Code Description Performed By Performed On J3301 KENALOG INJ, PER 10 MG 09/04/2012 08616 THERAPUTIC INJ SQ/IM 09/04/2012 70947 THERAPUTIC INJ SQ/IM 09/10/2012 J2550 PHENERGAN INJECTION UP TO 50 MG 09/10/2012 J1885 TORADOL INJ 09/10/2012 77303 MAMMOGRAM DX, LEFT 09/19/2012 93564 ROUTINE VENIPUNCTURE 09/25/2012 79429 CBC 09/25/2012 83511 CMP 09/25/2012 97567 LIPID PANEL 09/25/2012 5076148 GFR CALC (RESULT ONLY) 09/25/2012 08655 TSH 09/25/2012 92731 VITAMIN D 25-HYDROXY (D2,D3, TOTAL) 09/25/2012 J3301 KENALOG INJ, PER 10 MG 01/20/2013 10179 THERAPUTIC INJ SQ/IM 01/20/2013 01664 MAMMOGRAM, SCREENING 01/22/2013 31031 ROUTINE VENIPUNCTURE 07/15/2013 45805 CMP 07/15/2013 75826 LIPID PANEL 07/15/2013 05611 TSH 07/15/2013 19761 CBC 07/15/2013 Q0091 PAP SMEAR OBTAIN SMEAR 07/15/2013 47882 HEMOCCULT 07/15/2013 41399 PAP SMEAR 07/20/2013 79495 THERAPUTIC INJ SQ/IM 09/22/2013 J3301 KENALOG INJ, PER 10 MG 09/22/2013 97995 WART DESTRUCT 1-14 (CRYO) 01/18/2014 09647 MAMMOGRAM, SCREENING 02/04/2014 05239 MAMMOGRAM DX, RIGHT 02/16/2014 40861 BIOPSY SKIN LESION (SINGLE) 02/16/2014 17621 EXCISION BENIGN LESION 2.1-3 cm (specify location in [facility] description) 02/16/2014 06449 THERAPUTIC INJ SQ/IM 02/26/2014 J3301 KENALOG INJ, PER 10 MG 02/26/2014 48408 ROUTINE VENIPUNCTURE 05/11/2014 41883 CULTURE URINE 05/11/2014 23003 CBC 05/11/2014 27174 UA W/ CULTURE IF INDICATED 05/11/2014 6805344 GFR CALC (RESULT ONLY) 05/11/2014 21459 CMP 05/11/2014 45082 UA LONG DIP 05/17/2014 46104 UA W/ CULTURE IF INDICATED 06/01/2014 11435 CULTURE URINE 06/02/2014 82267 UA W/ CULTURE IF INDICATED 06/17/2014 31525 ROUTINE VENIPUNCTURE 07/28/2014 30332 LIPID PANEL 07/28/2014 69451 THERAPUTIC INJ SQ/IM 08/25/2014 J3301 KENALOG INJ, PER 10 MG 08/25/2014 77686 HEMOCCULT 09/13/2014 69621 HEMOCCULT 09/13/2014 54520 ROUTINE VENIPUNCTURE 09/21/2014 31082 CBC 09/21/2014 32314 SED/ESR RATE RML 09/21/[address] ABDOMEN & PELVIS W/ & W/O CONTRAST 09/22/2014 61286 KUB 09/22/2014 24620 UA W/ CULTURE IF INDICATED 09/22/2014 [id number] ROUTINE VENIPUNCTURE 09/27/2014 [id number] SED/ESR RATE (IN HOUSE) 09/27/2014 [id number] CBC 09/27/2014 Results Test Result Range Comprehensive Metabolic Panel - 05/21/17 22:59 Albumin 4.5 g/dL 3.6-5.1 ALP 97 U/L 35-130 ALT 27 U/L 6-45 Anion Gap 19 6-14 AST 38 U/L 2-40 BUN 15 mg/dL 5-25 Calcium 10.0 mg/dL 8.3-10.4 Chloride 106 mmol/L 95-114 CO2 19 mEq/L 22-33 Creat 0.78 mg/dL 0.50-1.50 eGFR 75 mL/min/1.73m2 >59 Globulin 3.9 g/dL 2.3-3.5 Glucose 145 mg/dL 70-110 Osmo 292 280-295 Potassium 4.0 mmol/L 3.5-5.3 Sodium 140 mmol/L 134-148 TBil 0.5 mg/dL 0.2-1.2 TP 8.4 g/dL 6.0-8.3 Complete blood count (CBC) with automated white blood cell (WBC) differential - 11/06/17 08:42 Blood leukocytes automated count (number/volume) 9.8 10*3/uL 4.3-11.0 Blood erythrocytes automated count (number/volume) 4.67 10*6/uL 4.35-5.85 Venous blood hemoglobin measurement (mass/volume) 14.9 g/dL 11.5-16.0 Blood hematocrit (volume fraction) 43 % 35-52 Automated erythrocyte mean corpuscular volume 93 [foz_us] 80-99 Automated erythrocyte mean corpuscular hemoglobin (mass per erythrocyte) 32 pg 25-34 Automated erythrocyte mean corpuscular hemoglobin concentration measurement (mass/volume) 35 g/dL 32-36 Automated erythrocyte distribution width ratio 13.0 % 10.0- 14.5 Automated blood platelet count (count/volume) 239 10*3/uL 130-400 Automated blood platelet mean volume measurement 9.8 [foz_us] 7.4-10.4 Automated blood neutrophils/100 leukocytes 72 % 42-75 Automated blood lymphocytes/100 leukocytes 20 % 12-44 Blood monocytes/100 leukocytes 7 % 0-12 Automated blood eosinophils/100 leukocytes 1 % 0-10 Automated blood basophils/100 leukocytes 0 % 0-10 Blood neutrophils automated count (number/volume) 7.1 10*3 1.8-7.8 Blood lymphocytes automated count (number/volume) 1.9 10*3 1.0-4.0 Blood monocytes automated count (number/volume) 0.7 10*3 0.0- 1.0 Automated eosinophil count 0.1 10*3/uL 0.0-0.3 Automated blood basophil count (count/volume) 0.0 10*3/uL 0.0-0.1 Whole blood basic metabolic panel - 11/06/17 08:42 Serum or plasma sodium measurement (moles/volume) 143 mmol/L 135-145 Serum or plasma potassium measurement (moles/volume) 4.2 mmol/L 3.6-5.0 Serum or plasma chloride measurement (moles/volume) 111 mmol/L 98-107 Carbon dioxide 24 mmol/L 21-32 Serum or plasma anion gap determination (moles/volume) 8 mmol/L 5-14 Serum or plasma urea nitrogen measurement (mass/volume) 11 mg/dL 7-18 Serum or plasma creatinine measurement (mass/volume) 0.72 mg/dL 0.60-1.30 Serum or plasma urea nitrogen/creatinine mass ratio 15 NRG Serum or plasma creatinine measurement with calculation of estimated glomerular filtration rate > NRG Serum or plasma glucose measurement (mass/volume) 95 mg/dL 70-105 Serum or plasma calcium measurement (mass/volume) 9.4 mg/dL 8.5-10.1 Methicillin resistant Staphylococcus aureus (MRSA) screening culture - 11/06/17 08:42 Methicillin resistant Staphylococcus aureus (MRSA) screening culture NEG NRG Lipase - 12/28/17 14:10 Lipase 14 U/L 7-59 Thyroid Stimulating Hormone - 01/01/18 07:47 TSH 0.64 mIU/mL 0.32-5.00 Urinalysis - 01/01/18 07:47 Icotest N/A Negative Urine Volume Urine Volume Insufficient (<10mL) May Affect Microscopic Exam Urine Yeast No Yeast present Urine-Appearance Slightly Cloudy Clear Urine-Bacteria 2+ Urine-Bilirubin Negative Negative Urine-Blood Negative Negative Urine-Color Yellow Colorless-Lt. Yellow Urine-Epithelial Cells 5-10/HPF Urine-Glucose Negative Negative Urine-Ketones Negative Negative Urine-Leukocytes 2+ Negative Urine-Nitrite Negative Negative Urine-Other Culture to follow Urine-pH 7.5 5-8.5 Urine-Protein Negative Negative Urine-RBC 0-2/HPF Urine-Specific [place] 1.020 1.000-1.030 Urine-WBC 5-10/HPF Urobilinogen 0.2 0.2-1.0 Protime - 01/21/18 13:45 INR 1.0 1.0-4.0 Protime 11.1 Sec 9.9-12.8 Encounters ACCT No. Visit Date/Time Discharge Status Pt. Type Provider Facility Loc./Unit Complaint [id number] 09/27/2014 14:28:00 09/27/2014 23:59:59 CLS Outpatient CINDY CARRERA APRN [id number] 09/22/2014 14:40:00 09/22/2014 23:59:59 CLS Outpatient CINDY CARRERA APRN [id number] 09/13/2014 16:45:00 09/13/2014 23:59:59 CLS Outpatient ERIC MENDIOLA APRN A [id number] 09/09/2014 08:45:00 09/09/2014 23:59:59 CLS Outpatient ERIC MENDIOLA APRN [id number] 09/09/2014 08:45:00 09/09/2014 23:59:59 CLS Outpatient ERIC MENDIOLA APRN A [id number] 08/25/2014 14:13:00 08/25/2014 23:59:59 CLS Outpatient DEBI FURNITURE DETAILER CINDY S [id number] 07/28/2014 09:53:00 07/28/2014 23:59:59 CLS Outpatient DEBI FURNITURE DETAILER, CINDY S [id number] 06/17/2014 15:05:00 06/17/2014 23:59:59 CLS Outpatient DEBI FURNITURE DETAILER, CINDY S [id number] 06/01/2014 14:14:00 06/01/2014 23:59:59 CLS Outpatient DEBI FURNITURE DETAILER, CINDY S [id number] 05/17/2014 08:35:00 05/17/2014 23:59:59 CLS Outpatient DEBI FURNITURE DETAILER, CINDY S [id number] 05/11/2014 14:38:00 05/11/2014 23:59:59 CLS Outpatient DEBI FURNITURE DETAILER, CINDY S [id number] 05/11/2014 14:38:00 05/11/2014 23:59:59 CLS Outpatient DEBI FURNITURE DETAILER, CINDY S [id number] 04/07/2014 13:38:00 04/07/2014 23:59:59 CLS Outpatient DEBI BRUNERN, CINDY S [id number] 02/26/2014 09:40:00 02/26/2014 23:59:59 CLS Outpatient ARTEM BRUNERROSIO Garcia [id number] 02/16/2014 14:30:00 02/16/2014 23:59:59 CLS Outpatient ARTEM BRUNERROSIO Garcia [id number] 02/04/2014 11:31:00 02/04/2014 23:59:59 CLS Outpatient ERIC MENDIOLA APRN [id number] 01/18/2014 09:34:00 01/18/2014 23:59:59 CLS Outpatient RUCHI CARRERA APRNNDA S [id number] 12/03/2013 13:32:00 12/03/2013 23:59:59 CLS Outpatient CINDY CARRERA APRN S [id number] 11/11/2013 10:16:00 11/11/2013 23:59:59 CLS Outpatient CINDY CARRERA APRN S [id number] 09/22/2013 15:33:00 09/22/2013 23:59:59 CLS Outpatient CINDY CARRERA APRN S [id number] 08/11/2013 13:25:00 08/11/2013 23:59:59 CLS Outpatient DEBI BRUNERNCINDY S [id number] 07/15/2013 08:43:00 07/15/2013 23:59:59 CLS Outpatient CINDY CARRERA APRN S [id number] 07/15/2013 08:43:00 07/15/2013 23:59:59 CLS Outpatient CINDY CARRERA APRN S [id number] 06/10/2013 10:42:00 06/10/2013 23:59:59 CLS Outpatient CINDY CARRERA APRN S [id number] 05/04/2013 17:26:00 05/04/2013 23:59:59 CLS Outpatient RUBINA FLETCHER DO [id number] 04/24/2013 14:22:00 04/24/2013 23:59:59 CLS Outpatient RUBINA FLETCHER DO [id number] 04/13/2013 11:58:00 04/13/2013 23:59:59 CLS Outpatient CINDY CARRERA APRN S [id number] 03/20/2013 12:51:00 03/20/2013 23:59:59 CLS Outpatient MACARIO COURTNEY WARD Johnny [id number] 01/20/2013 10:38:00 01/20/2013 23:59:59 CLS Outpatient BENTLEY SOLIZ MD [id number] 09/10/2012 11:26:00 09/10/2012 23:59:59 CLS Outpatient RUBINA FLETCHER DO [id number] 09/04/2012 12:52:00 09/04/2012 23:59:59 CLS Outpatient [id number] 06/26/2012 17:04:00 06/26/2012 23:59:59 CLS Outpatient CINDY CARRERA APRN S [id number] 02/22/2012 11:23:00 02/22/2012 23:59:59 CLS Outpatient CINDY CARRERA APRN [id number] 02/22/2012 11:23:00 02/22/2012 23:59:59 CLS Outpatient CINDY CARRERA APRN [id number] 10/23/2012 11:49:00 Document Registration [id number] 09/25/2012 09:02:00 Document Registration [id number] 09/04/2012 12:52:00 Document Registration [id number] 11/05/2018 05:48:00 11/05/2018 16:20:00 DIS Outpatient CE DIAZ MD [facility] PREOP CATARACT RIGHT EYE [id number] 09/26/2018 06:56:00 09/26/2018 08:39:00 DIS Outpatient CE DIAZ MD [facility] LEFT EYE CATARACT [id number] 09/24/2018 05:38:00 09/24/2018 13:23:00 DIS Outpatient CE DIAZ MD [facility] PREOP LEFT EYE CATARACT [id number] 11/15/2017 06:29:00 11/15/2017 11:10:00 DIS Outpatient FOUZIA JIMENEZ MD [facility] NASAL TIP LESION [id number] 11/06/2017 08:03:00 11/06/2017 09:00:00 DIS Outpatient FOUZIA JIMENEZ MD [facility] PREOP NASAL TIP LESION [id number] 10/12/2015 07:19:00 10/12/2015 23:59:59 CLS Outpatient OPAL KIMBLE MD [facility] CARD CHEST PAIN [id number] 09/28/2015 10:19:00 09/28/2015 23:59:59 CLS Outpatient OPAL KIMBLE MD [facility] CARD CHEST PAIN SYNDROME,SOB,NSVT,ANXIETY [id number] 09/15/2015 08:52:00 09/15/2015 23:59:59 CLS Outpatient OPAL KIMBLE MD [facility] RAD STENOSIS [id number] 10/09/2014 11:33:00 10/09/2014 15:09:00 DIS Emergency ARTUR LAMAR, LORI Justin [facility] ER CHEST PAIN [id number] 09/22/2014 16:07:00 09/22/2014 23:59:59 CLS Outpatient CINDY CARRERA [facility] RAD ABD PAIN UNSPECIFIED [id number] 2014 14:56:00 2014 23:59:59 CLS Outpatient BRITTANY ARELLANO MD [facility] RAD CEREBRAL ANEURYSM [id number] 02/24/2014 13:53:00 02/24/2014 23:59:59 CLS Outpatient MARLENAERIC Garcia FURN[employer]URE [employer]AILER [facility] RAD ABNORMAL MAMMO [id number] 02/15/2014 10:02:00 02/15/2014 23:59:59 CLS Outpatient ERIC MENDIOLA F[employer]URE [employer]ER [facility] RAD SCREENING [id number] 11/24/2013 16:21:00 11/24/2013 18:10:00 DIS Emergency JAYRO LAMAR, JERICHO Loving [facility] ER HEADACHE,DIZZINESS [id number] 02/12/2013 10:09:00 02/12/2013 23:59:59 CLS Outpatient CINDY CARRERA [facility] RAD SCREENING [id number] 11/07/2018 09:00:00 PEN Preadmit CE DIAZ MD [facility] SDC CATARACT RIGHT EYE [id number] 09/01/2015 09:19:00 Document Registration [id number] 09/22/2014 16:07:00 Document Registration [id number] 09/22/2014 16:06:00 Document Registration [id number] 08/01/2012 12:47:00 Document Registration [id number] 05/16/2012 11:00:00 Document Registration [id number] 04/03/2012 08:22:00 Document Registration [id number] 03/28/2012 08:21:00 Document Registration [id number] 02/15/2012 11:14:00 Document Registration [id number] 02/11/2012 13:00:00 Document Registration [id number] 01/07/2012 11:19:00 Document Registration [id number] 07/27/2011 15:07:00 Document Registration [id number] 11/27/2010 09:50:00 Document Registration [id number] 05/02/2010 13:29:00 Document Registration [id number] 10/17/2009 13:57:00 Document Registration [id number] 07/05/2009 12:28:00 Document Registration [id number] 10/08/2018 18:28:00 10/08/2018 19:05:00 DIS Outpatient Lisa Joseph [id number] 05/07/2018 11:00:00 05/07/2018 23:59:00 DIS Outpatient Jerson Leslie [id number] 03/13/2018 09:54:00 03/13/2018 23:59:00 DIS Outpatient Jerson Leslie [id number] 01/29/2018 07:48:00 01/29/2018 10:55:00 DIS Outpatient Jeannine Schroeder [id number] 01/21/2018 13:20:00 01/21/2018 23:59:00 DIS Outpatient Jeannine Schroeder [id number] 01/01/2018 07:44:00 01/01/2018 23:59:00 DIS Outpatient Jerson Leslie [id number] 12/28/2017 13:40:00 12/28/2017 15:58:00 DIS Outpatient Bello Vergara [id number] 12/27/2017 17:37:00 12/27/2017 23:59:00 DIS Outpatient Alondra Balderas [id number] 05/21/2017 21:58:00 05/22/2017 00:08:00 DIS Outpatient Bello Vergara [id number] 03/04/2017 09:03:00 03/04/2017 23:59:00 DIS Outpatient Jerson Leslie [id number] 02/26/2017 14:53:00 02/26/2017 15:20:00 DIS Outpatient Ursula [facility] [id number] 02/25/2017 14:35:00 02/25/2017 18:08:00 DIS Outpatient [facility] [id number] 09/08/2018 12:07:43 Document Registration [id number] 02/25/2017 17:58:23 Document Registration
== END 2018-11-07 09:00 | disposition home or self-care (01) ==
LOC: SDC 07:26
PROVIDERS: ATTEND Specialist
DX: H25.11 Age-related nuclear cataract, right eye (principal); J45.909 Unspecified asthma, uncomplicated; K21.9 Gastro-esophageal reflux disease without esophagitis; Z79.899 Other long term (current) drug therapy

== ENCOUNTER → 2020-07-11 | Outpatient (CLI) | payer MEDICAID ==
[~2020-07-11] MED LIST changes: +NABU-88 PO; -NABU500T PO; +RANI-613 PO; -RANI150T46 PO
--- NOTE | 2020-07-11 14:25 | Diagnostic Imaging Report ---
PROCEDURE: CT head without contrast. TECHNIQUE: Multiple contiguous axial images were obtained through the brain without the use of intravenous contrast. Auto Exposure Controls were utilized during the CT exam to meet ALARA standards for radiation dose reduction. INDICATION: Headache and increasing falls. Patient has had prior aneurysm with coiling. COMPARISON: Correlation is made with prior head CT from 03/18/2014. FINDINGS: Severe artifact from patient's intracranial aneurysm coils is again noted, compromising the study. 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 The ventricles are decompressed compared to prior CT. Moderate periventricular hypodensity is noted consistent with chronic microvascular ischemia. 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 No sulcal effacement or midline shift is identified. No acute intra-axial or extra-axial hemorrhage is detected. Postsurgical changes in right temporal craniectomy are seen. IMPRESSION: Post-therapeutic changes, as described. The overall ventricular dilatation has decreased since prior CT from 2013. There are chronic changes present. No acute intracranial process is identified. Dictated by: Dictated on workstation # [id number]
== END ==
LOC: RAD 13:33
PROVIDERS: ATTEND Nurse Practitioner Community Health
DX: G91.1 Obstructive hydrocephalus (principal); G31.9 Degenerative disease of nervous system, unspecified
CPT/HCPCS: 70450

== ENCOUNTER → 2022-02-01 | Outpatient (CLI) | payer MEDICARE ==
[~2022-02-01] MED LIST changes: -DULO60CA6 PO; +DULO60CA7 PO; -NABU-88 PO; +NABU500T8 PO
== END ==
LOC: CARD 13:00
PROVIDERS: ATTEND Internal Medicine Cardiovascular Disease
DX: I10 Essential (primary) hypertension (principal); I25.10 Atherosclerotic heart disease of native coronary artery without angina pectoris
CPT/HCPCS: 93306

== ENCOUNTER 2022-03-31 19:12 | Emergency (ER) | payer MEDICARE ==
[~2022-03-31] VITALS: Ht 160 cm; Wt 63.5 kg
[2022-03-31 19:14] VITALS: BP 171/88
[2022-03-31 19:30] LABS: BASOPHILS # (AUTO) 0.1 10^3/uL (0.0-0.1); BASOPHILS % (AUTO) 1 % (0-10); EOSINOPHILS # (AUTO) 0.3 10^3/uL (0.0-0.3); EOSINOPHILS % (AUTO) 3 % (0-10); HEMATOCRIT 41 % (35-52); HEMOGLOBIN 12.9 g/dL (11.5-16.0); LYMPHOCYTES # (AUTO) 4.8 10^3/uL (1.0-4.0); LYMPHOCYTES % (AUTO) 50 % (12-44); MEAN CORPUSCULAR HEMOGLOBIN 31 pg (25-34); MEAN CORPUSCULAR HGB CONC 31 g/dL (32-36); MEAN CORPUSCULAR VOLUME 100 fL (80-99); MEAN PLATELET VOLUME 8.6 fL (9.0-12.2); MONOCYTES # (AUTO) 0.6 10^3/uL (0.0-1.0); MONOCYTES % (AUTO) 7 % (0-12); NEUTROPHILS # (AUTO) 3.9 10^3/uL (1.8-7.8); NEUTROPHILS % (AUTO) 40 % (42-75); PLATELET COUNT 305 10^3/uL (130-400); WHITE BLOOD COUNT 9.7 10^3/uL (4.3-11.0)
[2022-03-31] MEDS ORDERED: IOHEXOL 350 MG/ML 100 ML (OMNIPAQUE 350) VIAL IV ONE (19:45)
[2022-03-31] MEDS ORDERED: NS 100 ML (IVPB) BAG IV ONE (19:45)
[2022-03-31] MEDS ORDERED: HOLD METFORMIN - RECEIVED CONTRAST 20 ML VIAL IV SCH (19:45)
[2022-03-31] MEDS ORDERED: CATHETER FLUSH 10 ML SYR IV PRN (19:45)
[2022-03-31 19:59] LABS: BILIRUBIN,TOTAL 0.3 MG/DL (0.1-1.0); CALCIUM 9.1 MG/DL (8.5-10.1); CREATININE SERUM 0.93 MG/DL (0.60-1.30); POTASSIUM 4.6 MMOL/L (3.6-5.0); TOTAL PROTEIN 6.9 GM/DL (6.4-8.2)
--- NOTE | 2022-03-31 20:00 | ED General ---
General Chief Complaint: Neurological Problems Stated Complaint: SEIZURE Nursing Triage Note: pt to room by [facility]. ems reports pt was at a green party and witnesses state she possibly had "seizure activity." friends state they lowered her to floor, no injury occurred per ems report. pt reports hx of tbi and prior seizure. pt just started on gabapentin recently. pt reports she "feels normal" on arrival. speech is normal, A&Ox4 on arrival Source of Information: Patient Exam Limitations: No Limitations History of Present Illness Date Seen by Provider: Mar 31, 2022 Time Seen by Provider: 19:28 Initial Comments 67-year-old female arrives via EMS after possible syncopal episode versus seizure activity. She was at a green party with her friends and they were smoking marijuana. She had what appeared to be seizure-like activity according to bystanders and they lowered her to the ground. On arrival patient states she does not remember the events and feels normal. No pain. No headache or changes in vision. She states she has a remote history of seizure activity from a TBI in 1998 which was the last time of the seizure. She is not on seizure medications and does not have that regularly. She denies any recent trauma or changes. She was started on gabapentin about a week ago for some nerve type pain in her bilateral lower extremities. She denies any changes in her vision, weakness in her upper and lower extremities. She does states she has a history of aneurysms which was her friend's main concern. Allergies and Home Medications Allergies Coded Allergies: morphine (Unverified Allergy, Mild, 09/24/18) Sulfa (Sulfonamide Antibiotics) (Verified Allergy, Unknown, 09/24/18) adhesive tape (Verified Allergy, Unknown, 09/24/18) latex (Verified Allergy, Unknown, 09/24/18) Patient Home Medication List Home Medication List Reviewed: Yes Acetaminophen (Acetaminophen) 500 Mg Tablet, 500 MG PO QID, (Reported) Entered as Reported by: KYLIE VARGAS on 11/06/17926 Albuterol/Ipratropium (Combivent Respimat Inhal [place]) 4 Gm Aero, 2 PUFF IH Q6H PRN for WHEEZING, (Reported) Entered as Reported by: KYLIE VARGAS on 11/06/17926 Butalbital/Aspirin/Caffeine (Fiorinal 50-325-40 mg Capsule) 1 Each Capsule, 1 EACH PO UD PRN for MIGRAINE, (Reported) Entered as Reported by: KYLIE VARGAS on 11/06/17930 Cetirizine HCl (Cetirizine HCl) 10 Mg Tablet, 10 MG PO DAILY, (Reported) Entered as Reported by: KYLIE VARGAS on 11/06/17926 Duloxetine HCl (Cymbalta) 60 Mg Capsule.dr, 60 MG PO BID, (Reported) Entered as Reported by: KYLIE VARGAS on 11/06/17930 Lorazepam (Lorazepam) 1 Mg Tablet, 1 MG PO BID, (Reported) Entered as Reported by: KYLIE VARGAS on 11/06/17926 Nabumetone (Nabumetone) 500 Mg Tablet, 500 MG PO BID, (Reported) Entered as Reported by: NEERU ULLOA on 09/24/18 131 Ranitidine HCl (Zantac) 150 Mg Tablet, 150 MG PO BID, (Reported) Entered as Reported by: NEERU ULLOA on 09/24/18 131 Triamcinolone Acet (Kenalog-10) 50 Mg/5 Ml Inj, 50 MG IJ every 6 months, (Reported) Entered as Reported by: KYLIE VARGAS on 11/06/17930 Review of Systems Review of Systems Constitutional: no symptoms reported EENTM: no symptoms reported Respiratory: no symptoms reported Cardiovascular: no symptoms reported Gastrointestinal: no symptoms reported Genitourinary: no symptoms reported Musculoskeletal: no symptoms reported Skin: no symptoms reported Psychiatric/Neurological: No Symptoms Reported Hematologic/Lymphatic: No Symptoms Reported Immunological/Allergic: no symptoms reported Past Uqrruby-Getxwo-Nipgap Hx Patient Social History Tobacco Use?: No Use of E-Cig and/or Vaping dev: No Substance use?: Yes Substance type: Marijuana Alcohol Use?: Yes Alcohol Frequency: Rarely Immunizations Up To Date Influenza Vaccine Up-to-Date: Yes; Up-to-Date Seasonal Allergies Seasonal Allergies: Yes Past Medical History Brain Shunt, Orthopedic, Vascular Surgery Asthma Aneurysm Reproductive Disorders: No UTI-Chronic Anxiety Adverse Reaction/Blood Tranf: No Family Medical History Reviewed Nursing Family Hx No Pertinent Family Hx Physical Exam Vital Signs Vital Signs - First Documented 03/31/22 19:14 Temp 35.8 Pulse 63 Resp 20 B/P (MAP) 171/88 (115) Pulse Ox 98 Capillary Refill : Height, Weight, BMI Height: 5'3.00" Weight: 143lbs. 0.0oz. 64.796316ud; 24.00 BMI Method:Estimated General Appearance: No Apparent Distress, WD/WN HEENT: PERRL/EOMI, TMs Normal, Normal ENT Inspection, Pharynx Normal Neck: Full Range of Motion, Normal Inspection, Non Tender, Supple Respiratory: Chest Non Tender, Lungs Clear, Normal Breath Sounds, No Accessory Muscle Use, No Respiratory Distress Cardiovascular: Regular Rate, Rhythm, No Edema, No Gallop, No JVD, No Murmur, Normal Peripheral Pulses Gastrointestinal: Normal Bowel Sounds, No Organomegaly, No Pulsatile Mass, Non Tender, Soft Back: Normal Inspection, No CVA Tenderness, No Vertebral Tenderness Extremity: Normal Capillary Refill, Normal Inspection, Normal Range of Motion, Non Tender, No Calf Tenderness Neurologic/Psychiatric: Alert, Oriented x3, No Motor/Sensory Deficits, Normal Mood/Affect, patient information coordinator II-XII Norm as Tested Skin: Normal Color, Warm/Dry Lymphatic: No Adenopathy Progress/Results/Core Measures Suspected Sepsis SIRS Temperature: Pulse: 63 Respiratory Rate: 20 Laboratory Tests 03/31/22 19:20: White Blood Count 9.7 Blood Pressure 171 /88 Mean: 115 Laboratory Tests 03/31/22 19:20: Creatinine 0.93, Platelet Count 305, Total Bilirubin 0.3 Results/Orders Lab Results Laboratory Tests Test 03/31/22 19:20 Range/Units White Blood Count 9.7 4.3-11.0 10^3/uL Red Blood Count 4.12 3.80-5.11 10^6/uL Hemoglobin 12.9 11.5-16.0 g/dL Hematocrit 41 35-52 % Mean Corpuscular Volume 100 H 80-99 fL Mean Corpuscular Hemoglobin 31 25-34 pg Mean Corpuscular Hemoglobin Concent 31 L 32-36 g/dL Red Cell Distribution Width 12.6 10.0-14.5 % Platelet Count 305 130-400 10^3/uL Mean Platelet Volume 8.6 L 9.0-12.2 fL Immature Granulocyte % (Auto) 0 % Neutrophils (%) (Auto) 40 L 42-75 % Lymphocytes (%) (Auto) 50 H 12-44 % Monocytes (%) (Auto) 7 0-12 % Eosinophils (%) (Auto) 3 0-10 % Basophils (%) (Auto) 1 0-10 % Neutrophils # (Auto) 3.9 1.8-7.8 10^3/uL Lymphocytes # (Auto) 4.8 H 1.0-4.0 10^3/uL Monocytes # (Auto) 0.6 0.0-1.0 10^3/uL Eosinophils # (Auto) 0.3 0.0-0.3 10^3/uL Basophils # (Auto) 0.1 0.0-0.1 10^3/uL Immature Granulocyte # (Auto) 0.0 0.0-0.1 10^3/uL Sodium Level 135 135-145 MMOL/L Potassium Level 4.6 3.6-5.0 MMOL/L Chloride Level 104 98-107 MMOL/L Carbon Dioxide Level 19 L 21-32 MMOL/L Anion Gap 12 5-14 MMOL/L Blood Urea Nitrogen 19 H 7-18 MG/DL Creatinine 0.93 0.60-1.30 MG/DL Estimat Glomerular Filtration Rate 68 BUN/Creatinine Ratio 20 Glucose Level 108 H 70-105 MG/DL Calcium Level 9.1 8.5-10.1 MG/DL Corrected Calcium 9.1 8.5-10.1 MG/DL Total Bilirubin 0.3 0.1-1.0 MG/DL Aspartate Amino Transf (AST/SGOT) 17 5-34 U/L Alanine Aminotransferase (ALT/SGPT) 18 0-55 U/L Alkaline Phosphatase 79 40-136 U/L Total Protein 6.9 6.4-8.2 GM/DL Albumin 4.0 3.2-4.5 GM/DL My Orders Orders - VICENTEOPAL DO Cbc With Automated Diff (03/31/22 19:18) Comprehensive Metabolic Panel (03/31/22 19:18) Ekg Tracing (03/31/22 19:18) Ct Angio Head W (03/31/22 19:18) Iohexol Injection (Omnipaque 350 Mg/Ml 1 (03/31/22 19:45) Received Contrast (Hold Metformin- Contr (03/31/22 19:45) Sodium Chloride Flush (Catheter Flush Sy (03/31/22 19:45) Ns (Ivpb) (Sodium Chloride 0.9% Ivpb Bag (03/31/22 19:45) Medications Given in ED Current Medications Medications Dose Ordered Sig/Clarence Route Start Time Stop Time Status Last Admin Dose Admin Iohexol 75 ml ONCE ONCE IV 03/31/22 19:45 03/31/22 19:46 DC 03/31/22 20:15 75 ML Sodium Chloride 100 ml ONCE ONCE IV 03/31/22 19:45 03/31/22 19:46 DC 03/31/22 20:15 100 ML Vital Signs/I&O 03/31/22 19:14 Temp 35.8 Pulse 63 Resp 20 B/P (MAP) 171/88 (115) Pulse Ox 98 Capillary Refill : Blood Pressure Mean: 115 ECG EKG : Comment Sinus bradycardia 58 beats minute. Normal intervals. Normal axis. No ST or T wave abnormalities. No ectopy. No STEMI. Diagnostic Imaging Diagonstic Imaging: CT Plain Films/CT/US/NM/MRI: head Comments [facility], [place] NAME: CHRISTA COLON [facility] REC#: [id number] PT STATUS: REG ER : 1955 PHYSICIAN: OPAL ZHANG DO ADMIT DATE: 03/31/22/ER Draft Date of Exam:03/31/22 CT ANGIO HEAD W INDICATION: Seizure like activity. History of aneurysm. Indwelling shunt. COMPARISON: 07/11/2020. TECHNIQUE: Noncontrast CT head performed. This was then followed by postcontrast CTA of the head. Contrast bolus was injected intravenously and timed for optimal opacification of the arterial structures. Multiplanar and 3D reformats were also created and reviewed. Auto Exposure Controls were utilized during the CT exam to meet ALARA standards for radiation dose reduction. FINDINGS: NONCONTRAST CT HEAD: There is large metallic coil mass superior to the level of the gina consistent with previous aneurysm coil. As a result, there is significant metallic beam-husain artifact. Indwelling left-sided SPRING COVERER shunt is also identified. This has some metallic components as well, which also results in metallic beam-hardening artifact. As a result, evaluation is moderately degraded. Ventricles appear mildly prominent. This, however, is stable compared to prior exam. Biventricular distance measures 3.9 cm on today's study, in comparison to 3.9 cm on exam dated 07/11/2020. The sulci are also mildly prominent. There are also scattered and confluent areas of decreased attenuation within the periventricular and subcortical deep white matter consistent with chronic small vessel ischemic changes. There is no new large area of loss of normal bauer-white matter junction differentiation to suggest evolving acute territorial infarct. No intra-axial or extra-axial intracranial hemorrhage is seen. CTA [place]: Visualized portions of the bilateral distal vertebral arteries are patent. There is focal stenosis of the basilar artery. Metallic foci are noted within this area. Distal basilar artery is heavily obscured due to the coil mass. Please note, recanalization of the aneurysm cannot be assessed on this exam. Within the anterior circulation, there is normal appearance to the distal portions of the bilateral internal carotid arteries. There is severe degradation of evaluation of the bilateral anterior and middle cerebral artery secondary to metallic beam-hardening artifact, but no large aneurysm is seen. Additionally, there is no large vessel occlusion or evidence of vascular malformation. POSTCONTRAST CT HEAD: Postcontrast images show no abnormal areas of enhancement, where visualized. IMPRESSION: 1. There is moderate to severe image degradation secondary to metallic beam-hardening artifact from patient's indwelling SPRING COVERER shunt catheter and metallic coil mass. 2. No gross acute vascular abnormality is seen. Please note, previously, coiled aneurysm could not be assessed for recanalization. If there is concern for recanalization, conventional angiogram is advised. 3. Moderate prominence of the ventricles. Although this does raise concern for malfunction of the indwelling SPRING COVERER shunt catheter, this is stable compared to prior exam. Correlation with a nuclear medicine sonogram may be of benefit. Dictated on workstation # [id number] Dict: 03/31/222041 Trans: 03/31/222105 [facility] [id number] Interpreted by: EMILIO GLASS MD Electronically signed by: Departure Communication (Admissions) Patient is hemodynamically stable. CTA undertaken due to history of aneurysm. This is normal and stable from previous exams. She has no focal neurologic deficits and is asymptomatic at her time of arrival. She is discharged home with close primary care follow-up. She is comfortable with plan. Questions were sought and answered. Impression Primary Impression: Syncope Qualified Codes: R55 - Syncope and collapse Disposition: HOME, SELF-CARE Condition: Stable Departure-Patient Inst. Referrals: BINU HEWITT DO (PCP/Family) Primary Care Physician Patient Instructions: Syncope (Fainting) (DC) Add. Discharge Instructions: Your CT scan is normal. Your lab work and exam are reassuring. It is unclear what happened this evening. I recommend you follow-up with your primary doctor in the next 48 to 72 hours for further evaluation and treatment recommendations. Return to the emergency department for any recurrence of your symptoms or with any symptoms concerning to you. All discharge instructions reviewed with patient and/or family. Voiced understanding. OPAL ZHANG DO Mar 31, 2022 20:00
--- NOTE | 2022-03-31 21:07 | Diagnostic Imaging Report ---
INDICATION: Seizure like activity. History of aneurysm. Indwelling shunt. COMPARISON: 07/11/2020. TECHNIQUE: Noncontrast CT head performed. This was then followed by postcontrast CTA of the head. Contrast bolus was injected intravenously and timed for optimal opacification of the arterial structures. Multiplanar and 3D reformats were also created and reviewed. Auto Exposure Controls were utilized during the CT exam to meet ALARA standards for radiation dose reduction. FINDINGS: NONCONTRAST CT HEAD: There is large metallic coil mass superior to the level of the gina consistent with previous aneurysm coil. As a result, there is significant metallic beam-husain artifact. Indwelling left-sided PNEUDRAULIC SYSTEMS MECHANIC shunt is also identified. This has some metallic components as well, which also results in metallic beam-hardening artifact. As a result, evaluation is moderately degraded. Ventricles appear mildly prominent. This, however, is stable compared to prior exam. Biventricular distance measures 3.9 cm on today's study, in comparison to 3.9 cm on exam dated 07/11/2020. The sulci are also mildly prominent. There are also scattered and confluent areas of decreased attenuation within the periventricular and subcortical deep white matter consistent with chronic small vessel ischemic changes. There is no new large area of loss of normal bauer-white matter junction differentiation to suggest evolving acute territorial infarct. No intra-axial or extra-axial intracranial hemorrhage is seen. CTA [place]: Visualized portions of the bilateral distal vertebral arteries are patent. There is focal stenosis of the basilar artery. Metallic foci are noted within this area. Distal basilar artery is heavily obscured due to the coil mass. Please note, recanalization of the aneurysm cannot be assessed on this exam. Within the anterior circulation, there is normal appearance to the distal portions of the bilateral internal carotid arteries. There is severe degradation of evaluation of the bilateral anterior and middle cerebral artery secondary to metallic beam-hardening artifact, but no large aneurysm is seen. Additionally, there is no large vessel occlusion or evidence of vascular malformation. POSTCONTRAST CT HEAD: Postcontrast images show no abnormal areas of enhancement, where visualized. IMPRESSION: 1. There is moderate to severe image degradation secondary to metallic beam-hardening artifact from patient's indwelling PNEUDRAULIC SYSTEMS MECHANIC shunt catheter and metallic coil mass. 2. No gross acute vascular abnormality is seen. Please note, previously coiled aneurysm cannot be assessed for recanalization. If there is concern for recanalization, conventional angiogram is advised. 3. Moderate prominence of the ventricles. Although this does raise concern for malfunction of the indwelling PNEUDRAULIC SYSTEMS MECHANIC shunt catheter, this is stable compared to prior exam. Correlation with a nuclear medicine sonogram may be of benefit. Dictated by: Dictated on workstation # [id number]
== END 2022-03-31 21:27 | disposition home or self-care (01) ==
LOC: EDUNIT# 19:12 → ER 19:13
DX: R55 Syncope and collapse (principal); Z91.040 Latex allergy status
CPT/HCPCS: 36415; 70496; 80053; 85025; 93005

== ENCOUNTER 2022-10-10 06:35 | Outpatient (CLI) | payer MEDICARE ==
[~2022-10-10] VITALS: Ht 157.5 cm; Wt 67.5 kg
[2022-10-12] MEDS ORDERED: ASPI-1238 PO (14:28)
[2022-10-12] MEDS ORDERED: FLUT15.845 NS (14:28)
[2022-10-12] MEDS ORDERED: GABA-486 PO (14:28)
[2022-10-12] MEDS ORDERED: HYDR12.56 PO (14:28)
[2022-10-12] MEDS ORDERED: PANT40TA52 PO (14:28)
== END 2022-10-12 14:29 | disposition home or self-care (01) ==
LOC: PREOP 06:35
PROVIDERS: ATTEND Surgery
DX: Z01.818 Encounter for other preprocedural examination (principal)

== ENCOUNTER 2022-10-23 10:45 | Day surgery (SDC) | payer MEDICARE ==
[~2022-10-23] VITALS: Ht 157.5 cm; Wt 67.5 kg
[~2022-10-23 10:45] MED LIST changes: +ASPI-1238 PO; +FLUT15.845 NS; +GABA-486 PO; +HYDR12.56 PO; +PANT40TA52 PO
[2022-10-23] MEDS ORDERED: LACTATED RINGERS 1,000 ML IV STA (12:01)
[2022-10-23 12:08] VITALS: BP 140/91
--- NOTE | 2022-10-23 12:42 | Progress Note-Pre Operative ---
Pre-Operative Progress Note Date H&P Reviewed: October 23, 2022 Time H&P Reviewed: 12:42 History & Physical: H&P Reviewed, Patient Examed, No changes noted Pre-Operative Diagnosis: positive occult blood in stool KUSH TY DO October 23, 2022 12:42
[2022-10-23] MEDS ORDERED: PROPOFOL INJECTION 50 ML IV ONE (13:22)
[2022-10-23 13:55] VITALS: BP 103/55
[2022-10-23 14:00] VITALS: BP 104/55
--- NOTE | 2022-10-23 14:01 | Discharge Inst-Simple/Standard ---
Discharge Inst-Standard Patient Instructions/Follow Up Plan of Care/Instructions/FU: follow up with Baldo in two weeks Activity as Tolerated: Yes Discharge Diet: Regular Diet KUSH TY DO October 23, 2022 14:01
--- NOTE | 2022-10-23 14:03 | Progress Note-Post Operative ---
Post-Operative Progess Note Surgeon (s)/Automatic Serging Machine Operator (s) Surgeon KUSH TY DO Automatic Serging Machine Operator: na Pre-Operative Diagnosis positive occult blood in stool Post-Operative Diagnosis colon polyps Procedure & Operative Findings Date of Procedure 10/23/22 Procedure Performed/Findings colonoscopy with hot biopsy polypectomy x2 Anesthesia Type per FAGOTER Estimated Blood Loss Estimated blood loss (mL): none Specimens/Packing Specimens Removed Rectum KUSH TY DO October 23, 2022 14:03
[2022-10-23 14:05] VITALS: BP 123/58
[2022-10-23 14:40] VITALS: BP 123/58
--- NOTE | 2022-10-23 14:51 | Anesthesia-General Post-Op ---
MAC Patient Condition Mental Status/LOC: Same as Preop Cardiovascular: Satisfactory Nausea/Vomiting: Absent Respiratory: Satisfactory Pain: Controlled Complications: Absent Post Op Complications Complications None Follow Up Care/Instructions Patient Instructions None needed. Anesthesiology Discharge Order Discharge Order Patient is doing well, no complaints, stable vital signs, no apparent adverse anesthesia problems. No complications reported per nursing. SANG LOPEZ CRNA October 23, 2022 14:51
--- NOTE | 2022-10-23 21:48 | OPERATIVE REPORT ---
DATE OF SERVICE: 10/23/2022 PREOPERATIVE DIAGNOSIS: Positive occult stool. POSTOPERATIVE DIAGNOSIS: Colon polyps x2. PROCEDURE: Colonoscopy with hot biopsy polypectomy x2. SURGEON: Kush Bland DO ANESTHESIA: Per RN FAMILY PRACTICE. ESTIMATED BLOOD LOSS: None. COMPLICATIONS: None. INDICATIONS: The patient is a 67-year-old female, needing colonoscopy. She understands risks and benefits of procedure and wished to proceed. Consent was signed in chart. DESCRIPTION OF PROCEDURE: The patient was taken to endoscopy suite, placed in left lateral recumbent position. Timeout was performed. Digital rectal exam was performed. No palpable polyps, masses or ulcerations. Scope was inserted in the rectum and advanced all the way to the cecum with minimal difficulty. Prep was adequate. Scope was slowly retracted back. No polyps, masses or ulcerations in the cecum, ascending, transverse, descending and sigmoid colon. In the rectum, had 2 very small polyps, which hot biopsy polypectomy was performed. Hot biopsy polypectomy was performed on both of them. Scope was then continuously retracted back and retroflexed, noting no other pathology. Scope was returned to its normal position, slowly withdrawn until completely removed. The patient tolerated the procedure well without any complications, taken to recovery room in stable condition. RECOMMENDATIONS: The patient will repeat colonoscopy in 5 years. Any issues before that, be seen at that time. She will follow up on pathology in 2 weeks. Job ID: [id number] DocumentID: [id number] Dictated Date: 10/23/2022 14:01:44 [employer] Efficient Automobile Designer Date: 10/23/2022 21:47:00 Dictated By: KUSH BLAND DO
== END 2022-10-23 14:40 | disposition home or self-care (01) ==
LOC: ENDO 10:45
PROVIDERS: ATTEND Surgery
DX: Z12.11 Encounter for screening for malignant neoplasm of colon (principal); K62.1 Rectal polyp; Z87.891 Personal history of nicotine dependence